=== PATIENT | male | born 1945 | race Caucasian/White ===

== ENCOUNTER 2020-02-03 21:00 | Emergency (ER) | payer OTHER, MEDICARE, MEDICAID, SELFPAY ==
[2020-02-03 21:01] VITALS: BP 141/68; PULSE 74; RESP 19; TEMP 36.6; O2SAT 92; BMI 28.7
[2020-02-03 21:17] VITALS: BP 106/58; PULSE 72; RESP 16; O2SAT 92
--- NOTE | 2020-02-03 21:23 | CTR_ITS ---
PROCEDURE INFORMATION: Exam: CT Head Without Contrast Exam date and time: 02/03/2020 9:24 PM Age: 74 years old Clinical indication: Injury or trauma; Fall; Blunt trauma (contusions or hematomas); Additional info: Fall/injury TECHNIQUE: Imaging protocol: Computed tomography of the head without contrast. Radiation optimization: All CT scans at this facility use at least one of these dose optimization techniques: automated exposure control; mA and/or kV adjustment per patient size (includes targeted exams where dose is matched to clinical indication); or iterative reconstruction. COMPARISON: No relevant prior studies available. RADIATION DOSE METRICS: Total DLP (mGy-cm): 655.2 FINDINGS: Brain: No evidence of active or acute intracranial pathologic process, hemorrhage, or trauma. 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 No visible cerebral edema. No mass effect. No midline shift. Cerebral and cerebellar atrophy greater than that anticipated for patient's chronological age. Old lacunar infarctions to include old left cerebellar hemisphere lacunar infarction. Cerebral ventricles: Ventriculomegaly greater than that anticipated for the degree of cerebral and cerebellar atrophy present. Thinning of the corpus callosum. Findings raise suspicion for normal pressure hydrocephalus. Bones/joints: Unremarkable. No acute fracture. Paranasal sinuses: Visualized sinuses are unremarkable. No fluid levels. Mastoid air cells: Visualized mastoid air cells are well aerated. Soft tissues: Unremarkable. CT/CT head wo con* [id number] IMPRESSION: 1. No evidence of active or acute intracranial pathologic process, hemorrhage, or trauma. 2. Findings consistent with normal pressure hydrocephalus. 3. 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 4. Antecedent lacunar infarctions. Radiation Dose CTDIVOL = (mGy): DLP = 655.2 (mGy-cm)
[2020-02-03 21:47] VITALS: PULSE 99; RESP 16; O2SAT 93
--- NOTE | 2020-02-03 21:58 | ED_ITS ---
HPI - Fall General: Chief Complaint: Fall Stated Complaint: FALL Time Seen by Provider: 02/03/20 21:11 Source: patient and EMS Mode of arrival: EMS Limitations: no limitations History of Present Illness: HPI Narrative: Mr. Zhong is a very nice 74-year-old male who slipped trying to get up out of his chair at the [facility] causing him to fall and hit his head. Patient does not believe he was knocked unconscious. He states he is may have been dazed shortly thereafter but now he feels fine. He denies neck pain, chest pain, back pain, extremity pain, hip pain, leg pain or abdominal pain. He states he has no other complaints other than the strike to his head. Patient has not vomited and does not feel nauseated. He denies any visual symptoms. Associated symptoms-after fall: Denies abdominal pain, chest pain, confusion, difficulty walking, headache(s), hematuria, lightheadedness, neck pain or vertigo Review of Systems Const: Denies: fever(s), chills, body aches, fatigue, malaise or diaphoresis Eyes: Denies: change in vision, blurry vision, photophobia, eye discomfort, eye discharge, eye redness or yellow eyes ENMT: Denies: throat pain, odynophagia, hoarseness, swelling of lips/tongue, ear or mastoid pain, ear discharge, change in hearing or nasal discharge Card: Denies: chest pain, palpitations, irregular heart rhythm, edema, lightheadedness, syncope, pre-syncope, dyspnea on exertion or orthopnea Resp: Denies: dyspnea, productive cough, non-productive cough, wheezing, hemoptysis or chest congestion GI: Denies: abdominal pain, nausea, vomiting, hematemesis, coffee ground emesis, heartburn, diarrhea, constipation, GI cramping, hematochezia or melena : Denies: flank pain, dysuria, urinary frequency, urinary urgency or hematuria Musc: Denies: neck pain, back pain, extremity pain, extremity swelling, joint pain, joint swelling, joint redness, joint warmth or joint stiffness Skin/Breast: Denies: rash, pruritus, erythema, skin pain or skin tenderness Neuro: Denies: headache(s), numbness in extremities, weakness in extremities, sensory changes, lack of coordination, difficulty walking, dizziness, vertigo, confusion, Slurred speech present or seizure-like activity Tam/Lymph: Denies: easy bruising, easy bleeding, petechiae, purpura or enlarged lymph nodes All/Imm: Denies: urticaria, throat swelling, tongue swelling, facial swelling or acute wheezing PFSH ED PFSH: Medical History DM type 2 (diabetes mellitus, type 2) GERD (gastroesophageal reflux disease) Hyperlipidemia Hypertension Physical Exam Const: COMMON NORMALS: no acute distress, patient oriented x3, no limitations and alert GENERAL APPEARANCE: cooperative HENMT: COMMON NORMALS: external ears normal, EAC's normal and Normal external nose present HEAD & SCALP: normal to inspection and other (2 cm laceration to the left posterior occiput) FACE & SINUS: normal facial exam and face symmetric NOSE: Normal external nose present and Normal nares present EXTERNAL EAR: Yes external ears normal EXTERNAL AUDITORY CANAL: EAC's normal MOUTH: Normal oral and palatal mucosa present, lip normal and tongue normal Eye: COMMON NORMALS: Equal, round and reactive pupils present and conjunctivae normal GENERAL EYE: appearance normal, both eyes and all related structures ALIGNMENT: Yes alignment normal PERIORBITAL: periorbital findings normal EYELID: eyelids normal CONJUNCTIVA: Yes conjunctivae normal SCLERA: sclerae normal PUPIL: Yes Equal, round and reactive pupils present Neck/C-Spine: COMMON NORMALS: full ROM, no lymphadenopathy, supple, no meningeal signs and no JVD GENERAL: Yes normal visual inspection and Yes trachea midline Chest: COMMONS NORMALS: normal inspection of the chest and normal palpation of entire chest wall Resp: COMMON NORMALS: normal respiratory effort, No retractions, No use of accessory muscles and clear to auscultation bilaterally EFFORT & INSPECTION: Yes able to speak in complete sentences and Yes symmetric chest movement AUSCULTATION: clear to auscultation bilaterally, no crackles, no rales, no rhonchi and no wheezes Cardio: COMMON NORMALS: no JVD, regular rate, regular rhythm, S1 normal heart sound present and S2 normal heart sound present RATE: regular rate RHYTHM: regular rhythm HEART SOUNDS: S1 normal heart sound present, S2 normal heart sound present, no click, no gallops, no murmurs and no rubs GI: COMMON NORMALS: Soft to palpation and No hepatosplenomegaly present PALPATION: Yes Soft to palpation, No Tenderness to palpation present (GI), No Guarding due to palpation present (GI), No Rigid due to palpation, Yes No hepatosplenomegaly present, No Hernia present, No Palpable mass present and No Pulsatile mass present : COMMON NORMALS: Yes no CVA tenderness BLADDER/KIDNEY EXAM: Yes no CVA tenderness Back/Pelvis: COMMON NORMALS: no CVA tenderness, thoracic and lumbar spine normal to inspection, no thoracic nor lumbar tenderness and thoraco-lumbar ROM normal Extremity: COMMON NORMALS: normal to inspection, full ROM, capillary refill normal, no joint enlargement, no clubbing, cyanosis or edema and no calf tenderness Neuro: COMMON NORMALS: patient oriented x3, CN's II-XII intact bilaterally, moves all extremities, no focal motor deficits and no sensory deficits noted SENSORIUM/ORIENTATION: Yes alert MENINGEAL SIGNS: Yes no meningeal signs SPEECH: speech normal Psych: COMMON NORMALS: mental status grossly normal, Normal thought process present, cooperative, normal affect, speech normal and activity/motor behavior normal SPEECH: Yes normal speech THOUGHT PROCESS: Normal thought process present Skin: COMMON NORMALS: no rashes or lesions noted, turgor normal, no jaundice, no petechiae and no mottling GENERAL SKIN EXAM: no rashes or lesions noted and turgor normal Procedures Laceration Laceration 1: Site: scalp Side (If applicable): left Size (cm): 2 Description: linear Depth: simple, single layer Pre-repair: wound explored, irrigated extensively and deep structures intact Size (cm): other (3 yarely placed.) Course Vital Signs: Vital signs: Vital Signs Temperature 97.9 F 02/03/20 21:01 Pulse Rate 99 02/03/20 21:47 Respiratory Rate 16 02/03/20 21:47 Blood Pressure 106/58 02/03/20 21:17 Pulse Oximetry 93 02/03/20 21:47 MDM - Fall Imaging Data^: CT Head: Radiologist's impression: [address] [address] [address] Scan Report Signed Patient: LIZ ZHONG Unit #: [id number] : 1945 Age/Sex: 74 / M ADM Date: 02/03/20 Loc: ER Room/Bed: Attending Dr: Ordering Provider/Ordering MD: Lilly Enriquez DO Date of Service: 02/03/20 Procedure(s): CT head wo con* [id number] Accession Number(s): [id number] Report Number: [id number] PROCEDURE INFORMATION: Exam: CT Head Without Contrast Exam date and time: 02/03/2020 9:24 PM Age: 74 years old Clinical indication: Injury or trauma; Fall; Blunt trauma (contusions or hematomas); Additional info: Fall/injury TECHNIQUE: Imaging protocol: Computed tomography of the head without contrast. Radiation optimization: All CT scans at this facility use at least one of these dose optimization techniques: automated exposure control; mA and/or kV adjustment per patient size (includes targeted exams where dose is matched to clinical indication); or iterative reconstruction. COMPARISON: No relevant prior studies available. RADIATION DOSE METRICS: Total DLP (mGy-cm): 655.2 FINDINGS: Brain: No evidence of active or acute intracranial pathologic process, hemorrhage, or trauma. 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 No visible cerebral edema. No mass effect. No midline shift. Cerebral and cerebellar atrophy greater than that anticipated for patient's chronological age. Old lacunar infarctions to include old left cerebellar hemisphere lacunar infarction. Cerebral ventricles: Ventriculomegaly greater than that anticipated for the degree of cerebral and cerebellar atrophy present. Thinning of the corpus callosum. Findings raise suspicion for normal pressure hydrocephalus. Bones/joints: Unremarkable. No acute fracture. Paranasal sinuses: Visualized sinuses are unremarkable. No fluid levels. Mastoid air cells: Visualized mastoid air cells are well aerated. Soft tissues: Unremarkable. CT/CT head wo con* [id number] IMPRESSION: 1. No evidence of active or acute intracranial pathologic process, hemorrhage, or trauma. 2. Findings consistent with normal pressure hydrocephalus. 3. 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 4. Antecedent lacunar infarctions. Radiation Dose CTDIVOL = (mGy): DLP = 655.2 (mGy-cm) Dictated By: Rodney Leach Signed By: Rodney Leach Signed Date/Time: 02/03/202155 DD/ 54 Discharge Plan Discharge Patient Disposition: Home Clinical Impression: Laceration, Normal pressure hydrocephalus Concussion without loss of consciousness Qualifiers: Encounter type: initial encounter Qualified Code(s): S06.0X0A - Concussion without loss of consciousness, initial encounter Condition: Stable Prescriptions: No Action ferrous sulfate 325 mg (65 mg iron) Tablet 325 mg PO TID@,, RF: 0 hydralazine 50 mg Tablet 50 mg PO TID@,, RF: 0 atorvastatin 40 mg Tablet 40 mg PO DAILY@1999 RF: 0 carvedilol 25 mg Tablet 25 mg PO BID@ RF: 0 Tylenol 325 mg Tablet 325 mg PO QID PRN (Reason: Pain) RF: 0 loperamide 2 mg Capsule 2 mg PO TID PRN (Reason: Diarrhea) RF: 0 dexamethasone 6 mg Tablet 6 mg PO DAILY@0800 RF: 0 Vitamin B-12 1,000 mcg Tablet 1,000 mcg PO DAILY@0800 RF: 0 Glucosamine 500 mg Tablet 500 mg PO BID@ RF: 0 meclizine 25 mg Tablet 25 mg PO Q6H PRN (Reason: Dizziness) RF: 0 pantoprazole 40 mg Tablet,Delayed Release (Dr/Ec) 40 mg PO DAILY@0800 RF: 0 Colace 100 mg Capsule 100 mg PO DAILY PRN (Reason: Constipation) RF: 0 [place] 200-200-20 mg/5 mL Suspension See Rx Instructions .ROUTE .COMPLEX RF: 0 fluticasone propionate 50 mcg/actuation Ferron,Suspension 1 spray INTRANASAL BID@, RF: 0 glipizide 5 mg Tablet 5 mg PO BID@, RF: 0 Artificial Tears Ointment 1 applic OPHTHALMIC (EYE) BID PRN (Reason: Dry Eyes) RF: 0 Vitamin D3 125 mcg (5,000 unit) Tablet 125 mcg PO DAILY@0800 RF: 0 Vitamin C (ascorbate calcium) 814 mg/gram Powder 814 mg PO DAILY@0800 RF: 0 Trelegy Ellipta 100-62.5-25 mcg Blister With Device 1 inh INHALATION DAILY@0800 RF: 0 Orajel 3X Mouth Sores 20-0.1-0.15 % Gel See Rx Instructions .ROUTE .COMPLEX RF: 0 Discharge Orders: Discharge ED (Routine); Ordered 02/03/20 Ordered By: Lilly Enriquez Referrals: Carol Smith MD [Physician] - 4-7 days Discharge Diet: Usual diet Discharge Activity: Increase activity as tolerated Patient Instructions: Concussion (ED) Activity Restrictions/Additional Instructions: Please return to the ER immediately for any of the signs or symptoms listed on your discharge instruction sheets, worsening/changing of your symptoms, you are not getting better as quickly as expected, or for ANY other cause or concerns. Keep your wound clean and dry and have your yarely removed in 7 to 10 days. Return to the ER for drainage from your wound, redness surrounding your wound, signs of infection or fever. Follow-up with Dr. Smith as an outpatient for evaluation of normal pressure hydrocephalus. Coding Level of Care Code ED Organic Extractions Technician for Chg Fwd Exam Comprehensive
--- NOTE | 2020-02-03 23:06 | PC.NURSE ---
Spoke with Angelique at the [facility]. Explained the situation with transportation. She stated the ambulance could bill [place].
[2020-02-04 00:17] VITALS: PULSE 98; RESP 16; O2SAT 96
== END 2020-02-04 00:19 | disposition home or self-care (01) ==
PROVIDERS: Emergency Provider Emergency Medicine
DX: S01.01XA Laceration without foreign body of scalp, initial encounter (principal); G91.2 (Idiopathic) normal pressure hydrocephalus; S06.0X0A Concussion without loss of consciousness, initial encounter; E11.9 Type 2 diabetes mellitus without complications; E78.5 Hyperlipidemia, unspecified; I10 Essential (primary) hypertension; W07.XXXA Fall from chair, initial encounter
CPT/HCPCS: 12001; 12011; 12345; 70450; 99281; 99282

== ENCOUNTER 2020-02-29 14:08 | Inpatient (IN) | payer MEDICARE, SELFPAY ==
[2020-02-29] VITALS (38 sets, daily range): BP systolic 77–144; BP diastolic 35–89; PULSE 79–130; RESP 9–27; TEMP 36.8; O2SAT 85–98; BMI 26.9
--- NOTE | 2020-02-29 14:29 | CT_ITS ---
WS: [id number] CT ABDOMEN PELVIS TECHNIQUE: Noncontrast CT of the abdomen and pelvis with coronal and sagittal reformatted images. CLINICAL INFORMATION: abd pain/GI bleed COMPARISON: None. DLP: 741.[address] scans at [facility] use at least one of these dose optimization techniques: automat ed exposure control; mA and/or kV adjustment per patient size (includes targeted exams where dose is matched to clinical indication); or iterative reconstruction. FINDINGS: Noncontrast liver is normal. Normal gallbladder. Noncontrast spleen is normal. Adrenal glands are nor mal. Atrophic left kidney. Cortical atrophy right kidney. Fatty atrophy of the pancreas. Fluid disten ded stomach with air-fluid level. Fat-containing umbilical hernia. Aortic endograft with biiliac exte nsion. Aneurysmal infrarenal abdominal aorta measures 3.7 x 4.1 cm AP by transverse. Normal sigmoid colon. A few diverticuli. No evidence of acute diverticulitis. Left inguinal hernia co ntaining a sigmoid colon loop of bowel. No evidence of strangulation or obstruction. No evidence of s mall or large bowel obstruction. No free fluid in the abdomen or pelvis. Lumbar scoliosis. Multilevel degenerative disc disease lumbar spine severe central canal stenosis L3- L4. Slight anterolisthesis L3 on L4. Moderate chronic emphysematous changes in the lung bases. Patchy infiltrates with patchy consolidatio n in the lung bases. Bulla formation right lower lobe. Noncalcified pulmonary nodule right lobe later ally measuring [address]/CT abdomen pelvis wo con [id number] IMPRESSION: 1. Patchy infiltrates with partial consolidation of the lung bases. Recommend correlation for pneumonia. 2. Left inguinal hernia containing a loop of sigmoid colon but no evidence of stimulation. No evidence of obstruction. 3. No evidence of small or large bowel obstruction. 4. Aortic endograft with biiliac extension. Aneurysmal infrarenal abdominal ao rta measuring 3.7 x 4.1 CM. 5. Atrophic left kidney. 6. Severe L3-4 spinal canal narrowing due to slight anterolisthesis with disc osteophytic ridging and advanced arthropathy.
--- NOTE | 2020-02-29 14:29 | XRR_ITS ---
PROCEDURE INFORMATION: Exam: XR Chest, 1 View Exam date and time: 02/29/2020 2:49 PM Age: 75 years old Clinical indication: Shortness of breath; Additional info: SOB TECHNIQUE: Imaging protocol: XR of the chest Views: 1 view. COMPARISON: No relevant prior studies available. FINDINGS: Tubes, catheters and devices: Permanent pacemaker/AICD device. Lungs: Bilateral lower lung partial consolidation right more than left. Pleural space: Unremarkable. No pleural effusion. No pneumothorax. Heart/Mediastinum: Unremarkable. No cardiomegaly. Bones/joints: No acute findings. XR/XR chest 1V portable [id number] IMPRESSION: Bilateral lower lung pneumonia, right more than left.
--- NOTE | 2020-02-29 14:31 | ECG_ITS ---
[facility] Test Date: 2020-02-29 Pat Name: LIZ ZHONG Department: Room: Gender: Male Box Person: : 1945 Requested By: Jason Winter I Order Number: [id number] Girish MD: Jase Blake M.D. Measurements Intervals [place] Rate: 119 P: 110 AL: 168 QRS: 25 QRSD: 100 T: 61 QT: 367 QTc: 517 Interpretive Statements SINUS TACHYCARDIA ST DEPRESSION, CONSIDER SUBENDOCARDIAL INJURY [0.1+ mV ST DEPRESSION] No previous ECG available for comparison Electronically Signed On 02-29-2020 21:38:20 FLUORESCENT SOLUTION MIXER by Jase Blake M.D. [email or web address]
[2020-02-29 14:36] LABS: ABG PCO2 37.8 mmHg (35-45); ABG PH Result 7.45 (7.35-7.45); Alveolar-Arterial Oxygen Gradi 76.8 mmHg (5-10); Arterial Blood Gas Hematocrit 42.2 % (42-52); Blood Gas Allen Test Pos; Blood Gas Sample Site Radial, left; Blood Gas Sample Type Arterial; Carboxyhemoglobin 0.8 %THgb (0.4-20.1); HGB O2 Sat 95.2 % (95-100); Ionized Calcium Level - ABG 1.1 mmol/L (1.1-1.4); Methemoglobin 0.3 % (0.4-1.5); Oxygen Device NRB; Oxygen Saturation ABG 96.3; PO2 ABG 77.6 mmHg (80.0-100.0); Potassium Level - ABG 3.7 mmol/L (3.5-5.0); Total Hemoglobin 13.8 g/dL (14-18)
[2020-02-29] MEDS: diphenhydrAMINE 50 mg/mL SDV 1mL IVP (14:38)
[2020-02-29] MEDS: EPINEPHrine 1 mg/mL INJ 0.3 MG IM ×2 (14:38→15:03)
[2020-02-29] MEDS: famotidine 20 mg/2 mL INJ 40 MG IVP (14:40)
[2020-02-29 14:59] LABS: Basophils % 0.2 %; Eosinophils # 0.1 10^3/uL (0.0-0.8); Eosinophils % 0.6 %; Hematocrit 41.7 % (42.0-52.0); Hemoglobin 13.2 g/dL (11.7-16.6); Lymphocytes # 1.9 10^3/uL (0.8-4.8); Lymphocytes % 15.8 %; Mean Corpuscular HGB Conc 31.7 g/dL (30.0-36.0); Mean Corpuscular Hemoglobin 30.1 pg (28.0-34.0); Monocytes # 1.1 10^3/uL (0.2-0.9); Monocytes % 9.6 %; Neutrophils # 8.54 10^3/uL (1.8-7.7); Neutrophils % 72.9 %; Nucleated Red Blood Cells % 0 %; Platelet Count 296 10^3/cmm (130-400); Red Blood Count 4.39 10^6/uL (4.1-5.3); Red Cell Distribution Width 13.2 % (12.1-15.1); White Blood Count 11.7 10^3/uL (4.0-10.0)
[2020-02-29] MEDS: ondansetron 2 mg/ML SDV 2 mL 4 MG IVP (15:05)
--- NOTE | 2020-02-29 15:30 | PC.NURSE ---
Spoke with [facility] nurse Angelique regarding possible allergens pt has been exposed to today. Per Angelique, pt has not come into contact with any new medications or foods that he has not had contact with before. [facility] staff updated that pt will be admitted for observation. Dr Winter notified of information gathered from [facility].
[2020-02-29 16:28] LABS: Lactate (Lactic Acid level) 2.5 mmol/L (0.5-2.2)
[2020-02-29 16:30] LABS: Alanine Aminotransferase 17 U/L (0-41); Albumin Level 2.6 g/dL (3.5-5.2); Alkaline Phosphatase 90 IU/L (40-130); Anion Gap 19.1 (5-19); Aspartate Amino Transferase 15 U/L (0-40); Blood Urea Nitrogen 26 mg/dL (8-23); Calcium 8.3 mg/dL (8.5-10.5); Carbon Dioxide 24 mmol/L (22-29); Chloride 103 mmol/L (98-107); Globulin 3.2 g/dL (1.3-4.6); Glucose 277 mg/dL (65-115); Lipase 28 U/L (13-60); Osmolality Calculated 309 mOsm/kg (285-295); Potassium 4.1 mmol/L (3.5-5.1); Sodium 142 mmol/L (136-145); Total Bilirubin 0.7 mg/dL (0.15-1.2); Total Protein 5.8 g/dL (6.6-8.7)
[2020-02-29 16:58] LABS: D Dimer >= 20.00 ug/mIFEU (0-0.59)
--- NOTE | 2020-02-29 17:03 | NMR_ITS ---
PROCEDURE INFORMATION: Exam: NH Lung Perfusion Exam date and time: 02/29/2020 6:30 PM Age: 75 years old Clinical indication: Pain and abnormal findings; Abnormal diagnostic tests; Elevated d-dimer; Cough and shortness of breath; Other: Mid back pain; Prior surgery; Surgery date: 6+ months; Surgery type: Pacemaker; Additional info: Hypoxia, tachycardia, hypotension TECHNIQUE: Imaging protocol: Nuclear pulmonary perfusion imaging was performed. Views: Perfusion acquired with multiple projections. Radiopharmaceutical: 5.3 mCi Tc-99m MAA (Macroaggregated Albumin), IV. COMPARISON: CR XR chest 1V portable [id number] 02/29/2020 2:51 PM FINDINGS: Perfusion: Perfusion defect in the central right lung base, corresponding to an area of consolidation on the chest x-ray. Large perfusion defect in the anterior right upper lobe. Moderate perfusion defect in the lingular segment of the left upper lobe. NH/NH pul perfusion [id number] IMPRESSION: 1. Multiple perfusion defects in both lungs is considered suspicious for pulmonary emboli.
--- NOTE | 2020-02-29 17:08 | ED_ITS ---
HPI - GI Bleed General: Chief complaint: GI Bleed Stated complaint: SOB Time Seen by Provider: 02/29/20 14:20 Source: patient and EMS Mode of arrival: EMS History of Present Illness: HPI Narrative: Patient is an 83-year-old gentleman who is a intermediate resident. About lunchtime today he complained of abdominal pain and had diarrhea. He said his stools were melena in color. On looking through his medications however he is on iron tablets for anemia. He has no prior history of GI bleed as far as I can tell. The patient does not think he has a prior GI bleed. When he he arrived he complained of abdominal pain, nausea and vomiting. He also had some diarrhea and some loose dark stools in the ED. He was normotensive in the ambulance, however shortly after arriving here his blood pressure dropped from normal to hypotensive with systolic as low as 69. He also had a rash on his abdomen that spread rapidly in a few minutes to involve the whole of his abdomen, became confluent when he was initially discrete and sprayed to his chest neck and perioral region. He was also present in both upper and lower extremities. Patient was also hypotensive after he arrived in the emergency department and required oxygen via nonrebreather to maintain his saturations around 90% on 15 L/min. Patient is a poor historian and this is as far as I could get from him. Associated symptoms: Reports abdominal pain, nausea and vomiting; Denies chills, fever(s), headache(s) or rash Review of Systems General: Reports: 10 or more systems reviewed and unremarkable except in HPI and below Const: Denies: fever(s), chills or body aches Eyes: Denies: change in vision or blurry vision ENMT: Denies: throat pain, enlarged tonsils, odynophagia, hoarseness, mouth pain or swelling of lips/tongue Card: Denies: palpitations, irregular heart rhythm, edema or swelling of feet/ankles Resp: Reports: dyspnea; Denies: productive cough or non-productive cough GI: Reports: abdominal pain, nausea, vomiting and diarrhea : Denies: flank pain, dysuria, urinary frequency, urinary urgency or urinary hesitancy Musc: Denies: neck pain, back pain or extremity swelling Skin/Breast: Denies: rash, pruritus or erythema Neuro: Denies: headache(s), numbness in extremities or weakness in extremities Endo: Denies: polyuria, polydipsia or tired all the time PFSH ED PFSH: Medical History (Updated 02/29/20 @ 23:58 by Jason Oconnell MD, [facility] [place]) Anemia of chronic disease CAD (coronary artery disease) CHF (congestive heart failure) CKD (chronic kidney disease) stage 3, GFR 30-59 ml/min COPD (chronic obstructive pulmonary disease) Dementia without behavioral disturbance DM type 2 (diabetes mellitus, type 2) GERD (gastroesophageal reflux disease) History of 2019 novel coronavirus disease (COVID-19) (~01/29/20) Hyperlipidemia Hypertension Osteoarthritis Recurrent falls Vitamin C deficiency Vitamin D deficiency Surgical History (Updated 02/29/20 @ 21:23 by Ana Maria Guardado MD) AICD (automatic cardioverter/defibrillator) present Social History (Updated 02/29/20 @ 21:28 by Ana Maria Guardado MD) Smoking and tobacco status: former smoker Lives independently: No Housing: Other Details: [facility] Physical Exam Const: COMMON NORMALS: average body habitus, patient oriented x3, no limitations, healthy appearing, alert and well nourished GENERAL APPEARANCE: in distress (complains of trouble breathing, feels air is not getting into his lungs) HENMT: COMMON NORMALS: normocephalic, atraumatic and moist oral mucous membranes HEAD & SCALP: normocephalic and atraumatic Neck/C-Spine: COMMON NORMALS: no meningeal signs and no JVD Resp: COMMON NORMALS: normal respiratory effort, No retractions, No use of accessory muscles and percussion normal AUSCULTATION: wheezes and diminished lung sounds PERCUSSION: percussion normal Cardio: COMMON NORMALS: no JVD, regular rhythm, S1 normal heart sound present, S2 normal heart sound present, No gallops present (Cardio), No clicks present (Cardio), No murmurs present (Cardio), No rub (Cardio) and Peripheral pulses 2+ throughout RATE: tachycardic RHYTHM: regular rhythm HEART SOUNDS: S1 normal heart sound present and S2 normal heart sound present PERIPHERAL PULSES: Peripheral pulses 2+ throughout GI: COMMON NORMALS: Normal to inspection, nondistended, normoactive bowel sounds present, Soft to palpation, non-tender, No hepatosplenomegaly present, no masses and no bruits PALPATION: Yes Soft to palpation and Yes No hepatosplenomegaly present Extremity: COMMON NORMALS: normal to inspection, full ROM, capillary refill normal, no calf tenderness and no pedal edema Neuro: COMMON NORMALS: patient oriented x3 SENSORIUM/ORIENTATION: Yes alert MENINGEAL SIGNS: Yes no meningeal signs Skin: COMMON NORMALS: no rashes or lesions noted, no wounds, turgor normal, no jaundice, no petechiae and no mottling GENERAL SKIN EXAM: no rashes or lesions noted and turgor normal Course ED course: This elderly gentleman who is a [place] resident was pretty ill and in a bad way on arrival at the ED. He was hypotensive, tachycardiac, hypoxic, had a widespread eythematous and urticarial rash that spread rapidly in within a few minutes. He was given epinephrine, solumedrol, benadryl, pepcid for a likely anaphylactic reaction although we could not determine what he is reacting to. He improved dramatically with the above treatment and stabilized. 1938: discussed with his daughter Acacia Reyes who was informed on his clinical course and my thinking. She also informed me that he had been on anticoagulation in the past, however he had severe lower GI bleeding. Her words were he nearly bled to , so it was discontinued. Advised that depending on his repeat hemoglobin we may need to start him on anticoagulation if we think the benefits are greater than the risks. She advised us to do what we think is the right thing for her father. Consultations: Consultation #1: Discussed the patient with Dr. Guardado and she kindly accepted the patient to her service. Time: 21:15 Vital Signs: Vital signs: Vital Signs Temperature 98.3 F 02/29/20 14:09 Pulse Rate 96 02/29/20 22:45 Respiratory Rate 15 02/29/20 22:30 Blood Pressure 126/60 02/29/20 22:45 Pulse Oximetry 89 L 02/29/20 22:45 MDM - GI Bleed MDM Narrative: Medical decision making narrative: 75 year old [place] who was brought to the ED for concerns for a GI bleed. During lunch in the [place] he had abdominal pain, diarrhea, nausea. His stools were said to be melena, however he is on iron tablets for anemia. On arrival to the ED he had a rash that was only on some parts of his abdomen but rapidly spread to coalesce and spread to involve the whole trunk and both limbs including hands and feet. He also became hypotensive, was tachycardiac, and hypoxic. This in addition to abdominal pain, nausea and vomiting. I therefore managed him as a case of anaphylaxis with 2 doses of IM epinephrine, IV benadryl, solumedrol, pepcid. He was also given an albuterol nebulizer treatment. He improved dramatically with this regimen. I called the [place] and they have not started any new medications recently. He also has not eaten anything new and had biscuits and gravy when his symptoms started. He however had a COVID vaccine 3 days ago which is unlikely to be the cause of his symptoms i think. He was diagnosed with COVID 19 about one month ago, and since it is known to be a hypercoagulable condition he was screened for a PE as some of his symptoms could be explained by a PE. Ddimer was significantly elevated, however he has anaphylaxis to IV contrast and he has elevated creatinine so a V/Q scan was done. He was not cooperative with the ventilation part of the test but his perfusion studies were concerning for bilateral PE's. A repeat hemoglobin showed a drop of 2 points which is concerning for blood loss as his fecal occult blood was positive. Another consideration is hemodilution from IV fluid hydration. This presents a significant clinical conundrum, but since he has had a major GI bleed in the past and possibly has GI bleed again, i will avoid anticoagulation today. Prognosis is therefore guarded and he at very high risk for clinical deterioration. He is admitted to the hospitalist service for further evaluation and management. Medical Records: Attestation: I reviewed the patient's medical records. Lab Data: Attestation: I reviewed the patient's lab results. Labs: Lab Results 02/29/20 02/29/20 02/29/20 Range/Units 14:25 14:45 14:45 WBC 11.7 H (4.0-10.0) 10^3/ uL RBC 4.39 (4.1-5.3) 10^6/u L Hgb 13.2 (11.7-16.6) g/dL Hct 41.7 L (42.0-52.0) % MCV 95.0 H (80-94) fL MCH 30.1 (28.0-34.0) pg MCHC 31.7 (30.0-36.0) g/dL RDW 13.2 (12.1-15.1) % Plt Count 296 (130-400) 10^3/c mm MPV 10.0 (7.4-10.4) fL Neut % (Auto) 72.9 % Lymph % (Auto) 15.8 % Rush % (Auto) 9.6 % Eos % (Auto) 0.6 % Baso % (Auto) 0.2 % Neut # (Auto) 8.54 H (1.8-7.7) 10^3/u L Lymph # (Auto) 1.9 (0.8-4.8) 10^3/u L Rush # (Auto) 1.1 H (0.2-0.9) 10^3/u L Eos # (Auto) 0.1 (0.0-0.8) 10^3/u L Baso # (Auto) 0.0 (0.0-0.1) 10^3/u L Nucleated RBC % (a uto) 0 % Nucleated RBCs # 0.0 /100WBC D-Dimer (0-0.59) ug/mIFE U Specimen Type Arterial Sample Site Radial, left ABG pH 7.45 (7.35-7.45) ABG pCO2 37.8 (35-45) mmHg ABG pO2 77.6 L (80.0-100.0) mmH g ABG HCO3 26.0 (22-26) mmol/L ABG O2 Saturation 96.3 ABG Base Excess 2.0 (-2.0-2.0) mmol/ L Dexter Test Pos A-a O2 Gradient 76.8 H (5-10) mmHg Hematocrit 42.2 (42-52) % Hgb O2 Saturation 95.2 (95-100) % Carboxyhemoglobin 0.8 (0.4-20.1) %THgb Methemoglobin 0.3 L (0.4-1.5) % Total Hemoglobin 13.8 L (14-18) g/dL Sodium 141.0 (131-143) mmol/L Potassium 3.7 (3.5-5.0) mmol/L Glucose 229.0 H (70-115) mg/dL Ionized Calcium 1.1 (1.1-1.4) mmol/L O2 Delivery Device Nrb FiO2 100.0 % Deer Farmer ID Drn Chloride (98-107) mmol/L Carbon Dioxide (22-29) mmol/L Anion Gap (5-19) BUN (8-23) mg/dL Creatinine (0.7-1.2) mg/dL GFR Calculation Calculated Osmolal ity (285-295) mOsm/k g Lactate (0.5-2.2) mmol/L Calcium (8.5-10.5) mg/dL Total Bilirubin (0.15-1.2) mg/dL AST (0-40) U/L ALT (0-41) U/L Alkaline Phosphata se (40-130) IU/L Troponin T Baselin e (0-15) ng/L Troponin T 120 Min [place] (0-15) ng/L Delta Troponin T (0-10) ABS# Troponin T Hi Sens 6Hr (0-15) ng/L Troponin T Hi Sens 6Hr Delta (0-12) ng/L Total Protein (6.6-8.7) g/dL Albumin (3.5-5.2) g/dL Globulin (1.3-4.6) g/dL Lipase (13-60) U/L Blood Type O Negative Rho(D) Type Negative Antibody Screen Negative 02/29/20 02/29/20 02/29/20 Range/Units 15:41 15:41 15:51 WBC (4.0-10.0) 10^3/ uL RBC (4.1-5.3) 10^6/u L Hgb (11.7-16.6) g/dL Hct (42.0-52.0) % MCV (80-94) fL MCH (28.0-34.0) pg MCHC (30.0-36.0) g/dL RDW (12.1-15.1) % Plt Count (130-400) 10^3/c mm MPV (7.4-10.4) fL Neut % (Auto) % Lymph % (Auto) % Rush % (Auto) % Eos % (Auto) % Baso % (Auto) % Neut # (Auto) (1.8-7.7) 10^3/u L Lymph # (Auto) (0.8-4.8) 10^3/u L Rush # (Auto) (0.2-0.9) 10^3/u L Eos # (Auto) (0.0-0.8) 10^3/u L Baso # (Auto) (0.0-0.1) 10^3/u L Nucleated RBC % (a uto) % Nucleated RBCs # /100WBC D-Dimer >= 20.00 H (0-0.59) ug/mIFE U Specimen Type Sample Site ABG pH (7.35-7.45) ABG pCO2 (35-45) mmHg ABG pO2 (80.0-100.0) mmH g ABG HCO3 (22-26) mmol/L ABG O2 Saturation ABG Base Excess (-2.0-2.0) mmol/ L Dexter Test A-a O2 Gradient (5-10) mmHg Hematocrit (42-52) % Hgb O2 Saturation (95-100) % Carboxyhemoglobin (0.4-20.1) %THgb Methemoglobin (0.4-1.5) % Total Hemoglobin (14-18) g/dL Sodium 142 (131-143) mmol/L Potassium 4.1 (3.5-5.0) mmol/L Glucose 277 H (70-115) mg/dL Ionized Calcium (1.1-1.4) mmol/L O2 Delivery Device FiO2 % Deer Farmer ID Chloride 103 (98-107) mmol/L Carbon Dioxide 24 (22-29) mmol/L Anion Gap 19.1 H (5-19) BUN 26 H (8-23) mg/dL Creatinine 2.7 H (0.7-1.2) mg/dL GFR Calculation Not Reportable Calculated Osmolal ity 309 H (285-295) mOsm/k g Lactate 2.5 H (0.5-2.2) mmol/L Calcium 8.3 L (8.5-10.5) mg/dL Total Bilirubin 0.7 (0.15-1.2) mg/dL AST 15 (0-40) U/L ALT 17 (0-41) U/L Alkaline Phosphata se 90 (40-130) IU/L Troponin T Baselin e (0-15) ng/L Troponin T 120 Min [place] (0-15) ng/L Delta Troponin T (0-10) ABS# Troponin T Hi Sens 6Hr (0-15) ng/L Troponin T Hi Sens 6Hr Delta (0-12) ng/L Total Protein 5.8 L (6.6-8.7) g/dL Albumin 2.6 L (3.5-5.2) g/dL Globulin 3.2 (1.3-4.6) g/dL Lipase 28 (13-60) U/L Blood Type Rho(D) Type Antibody Screen 02/29/20 02/29/20 02/29/20 Range/Units 15:51 18:04 20:59 WBC (4.0-10.0) 10^3/ uL RBC (4.1-5.3) 10^6/u L Hgb (11.7-16.6) g/dL Hct (42.0-52.0) % MCV (80-94) fL MCH (28.0-34.0) pg MCHC (30.0-36.0) g/dL RDW (12.1-15.1) % Plt Count (130-400) 10^3/c mm MPV (7.4-10.4) fL Neut % (Auto) % Lymph % (Auto) % Rush % (Auto) % Eos % (Auto) % Baso % (Auto) % Neut # (Auto) (1.8-7.7) 10^3/u L Lymph # (Auto) (0.8-4.8) 10^3/u L Rush # (Auto) (0.2-0.9) 10^3/u L Eos # (Auto) (0.0-0.8) 10^3/u L Baso # (Auto) (0.0-0.1) 10^3/u L Nucleated RBC % (a uto) % Nucleated RBCs # /100WBC D-Dimer (0-0.59) ug/mIFE U Specimen Type Sample Site ABG pH (7.35-7.45) ABG pCO2 (35-45) mmHg ABG pO2 (80.0-100.0) mmH g ABG HCO3 (22-26) mmol/L ABG O2 Saturation ABG Base Excess (-2.0-2.0) mmol/ L Dexter Test A-a O2 Gradient (5-10) mmHg Hematocrit (42-52) % Hgb O2 Saturation (95-100) % Carboxyhemoglobin (0.4-20.1) %THgb Methemoglobin (0.4-1.5) % Total Hemoglobin (14-18) g/dL Sodium (131-143) mmol/L Potassium (3.5-5.0) mmol/L Glucose (70-115) mg/dL Ionized Calcium (1.1-1.4) mmol/L O2 Delivery Device FiO2 % De[place] Farmer ID Chloride (98-107) mmol/L Carbon Dioxide (22-29) mmol/L Anion Gap (5-19) BUN (8-23) mg/dL Creatinine (0.7-1.2) mg/dL GFR Calculation Calculated Osmolal ity (285-295) mOsm/k g Lactate (0.5-2.2) mmol/L Calcium (8.5-10.5) mg/dL Total Bilirubin (0.15-1.2) mg/dL AST (0-40) U/L ALT (0-41) U/L Alkaline Phosphata se (40-130) IU/L Troponin T Baselin e 39 H (0-15) ng/L Troponin T 120 Min [place] 38.22 H (0-15) ng/L Delta Troponin T -0.78 L (0-10) ABS# Troponin T Hi Sens 6Hr 42.28 H (0-15) ng/L Troponin T Hi Sens 6Hr Delta 3.28 (0-12) ng/L Total Protein (6.6-8.7) g/dL Albumin (3.5-5.2) g/dL Globulin (1.3-4.6) g/dL Lipase (13-60) U/L Blood Type Rho(D) Type Antibody Screen 02/29/20 Range/Units 20:59 WBC (4.0-10.0) 10^3/ uL RBC (4.1-5.3) 10^6/u L Hgb 11.6 L (11.7-16.6) g/dL Hct 36.5 L (42.0-52.0) % MCV (80-94) fL MCH (28.0-34.0) pg MCHC (30.0-36.0) g/dL RDW (12.1-15.1) % Plt Count (130-400) 10^3/c mm MPV (7.4-10.4) fL Neut % (Auto) % Lymph % (Auto) % Rush % (Auto) % Eos % (Auto) % Baso % (Auto) % Neut # (Auto) (1.8-7.7) 10^3/u L Lymph # (Auto) (0.8-4.8) 10^3/u L Rush # (Auto) (0.2-0.9) 10^3/u L Eos # (Auto) (0.0-0.8) 10^3/u L Baso # (Auto) (0.0-0.1) 10^3/u L Nucleated RBC % (a uto) % Nucleated RBCs # /100WBC D-Dimer (0-0.59) ug/mIFE U Specimen Type Sample Site ABG pH (7.35-7.45) ABG pCO2 (35-45) mmHg ABG pO2 (80.0-100.0) mmH g ABG HCO3 (22-26) mmol/L ABG O2 Saturation ABG Base Excess (-2.0-2.0) mmol/ L Dexter Test A-a O2 Gradient (5-10) mmHg Hematocrit (42-52) % Hgb O2 Saturation (95-100) % Carboxyhemoglobin (0.4-20.1) %THgb Methemoglobin (0.4-1.5) % Total Hemoglobin (14-18) g/dL Sodium (131-143) mmol/L Potassium (3.5-5.0) mmol/L Glucose (70-115) mg/dL Ionized Calcium (1.1-1.4) mmol/L O2 Delivery Device FiO2 % De[place] Farmer ID Chloride (98-107) mmol/L Carbon Dioxide (22-29) mmol/L Anion Gap (5-19) BUN (8-23) mg/dL Creatinine (0.7-1.2) mg/dL GFR Calculation Calculated Osmolal ity (285-295) mOsm/k g Lactate (0.5-2.2) mmol/L Calcium (8.5-10.5) mg/dL Total Bilirubin (0.15-1.2) mg/dL AST (0-40) U/L ALT (0-41) U/L Alkaline Phosphata se (40-130) IU/L Troponin T Baselin e (0-15) ng/L Troponin T 120 Min [place] (0-15) ng/L Delta Troponin T (0-10) ABS# Troponin T Hi Sens 6Hr (0-15) ng/L Troponin T Hi Sens 6Hr Delta (0-12) ng/L Total Protein (6.6-8.7) g/dL Albumin (3.5-5.2) g/dL Globulin (1.3-4.6) g/dL Lipase (13-60) U/L Blood Type Rho(D) Type Antibody Screen Imaging Data^: CXR: Attestation: I personally reviewed and interpreted this imaging study as follows: Radiologist's impression: [address] [address] XRay Report Signed Patient: Isa ZHONG #: [id number] : [id number] Age/Sex: 75 / MADM Date: 02/29/20 Loc: ERRoom/Bed: Attending Dr: Ordering Provider/Ordering MD: Jason Oconnell MD, [facility] [place] Date of Service: 02/29/20 Procedure(s): XR chest 1V portable [id number] Accession Number(s): [id number] Report Number: [id number] PROCEDURE INFORMATION: Exam: XR Chest, 1 View Exam date and time: 02/29/2020 2:49 PM Age: 75 years old Clinical indication: Shortness of breath; Additional info: SOB TECHNIQUE: Imaging protocol: XR of the chest Views: 1 view. COMPARISON: No relevant prior studies available. FINDINGS: Tubes, catheters and devices: Permanent pacemaker/AICD device. Lungs: Bilateral lower lung partial consolidation right more than left. Pleural space: Unremarkable. No pleural effusion. No pneumothorax. Heart/Mediastinum: Unremarkable. No cardiomegaly. Bones/joints: No acute findings. XR/XR chest 1V portable [id number] IMPRESSION: Bilateral lower lung pneumonia, right more than left. Dictated By:Arpit Cleveland MD Signed By:Arpit Cleveland MDSigned Date/Time:02/29/20 1530 DD/ 1529 CT Abd/Pel: Radiologist's impression: [address] [place] [address] CT Scan Report Signed Patient: Isa ZHONG #: [id number] : 4Acct#:[id number] Age/Sex: 75 / MADM Date: 02/29/20 Loc: ERRoom/Bed: Attending Dr: Ordering Provider/Ordering MD: Jason Oconnell MD, [facility] [place] Date of Service: 02/29/20 Procedure(s): CT abdomen pelvis wo con [id number] Accession Number(s): [id number] Report Number: [id number] WS: [id number] CT ABDOMEN PELVIS TECHNIQUE: Noncontrast CT of the abdomen and pelvis with coronal and sagittal reformatted images. CLINICAL INFORMATION: abd pain/GI bleed COMPARISON: None. DLP: 741.[address] scans at [facility] use at least one of these dose optimization techniques: automated exposure control; mA and/or kV adjustment per patient size (includes targeted exams where dose is matched to clinical indication); or iterative reconstruction. FINDINGS: Noncontrast liver is normal. Normal gallbladder. Noncontrast spleen is normal. Adrenal glands are normal. Atrophic left kidney. Cortical atrophy right kidney. Fatty atrophy of the pancreas. Fluid distended stomach with air-fluid level. Fat-containing umbilical hernia. Aortic endograft with biiliac extension. Aneurysmal infrarenal abdominal aorta measures 3.7 x 4.1 cm AP by transverse. Normal sigmoid colon. A few diverticuli. No evidence of acute diverticulitis. Left inguinal hernia containing a sigmoid colon loop of bowel. No evidence of strangulation or obstruction. No evidence of small or large bowel obstruction. No free fluid in the abdomen or pelvis. Lumbar scoliosis. Multilevel degenerative disc disease lumbar spine severe central canal stenosis L3-L4. Slight anterolisthesis L3 on L4. Moderate chronic emphysematous changes in the lung bases. Patchy infiltrates with patchy consolidation in the lung bases. Bulla formation right lower lobe. Noncalcified pulmonary nodule right lobe laterally measuring [address]/CT abdomen pelvis wo con [id number] IMPRESSION: 1. Patchy infiltrates with partial consolidation of the lung bases. Recommend correlation for pneumonia. 2. Left inguinal hernia containing a loop of sigmoid colon but no evidence of stimulation. No evidence of obstruction. 3. No evidence of small or large bowel obstruction. 4. Aortic endograft with biiliac extension. Aneurysmal infrarenal abdominal aorta measuring 3.7 x 4.1 CM. 5. Atrophic left kidney. 6. Severe L3-4 spinal canal narrowing due to slight anterolisthesis with disc osteophytic ridging and advanced arthropathy. Dictated By:Derrick Mace MD Signed By:Derrick Mace MDSigned Date/Time:02/29/20 1615 DD/ 1604 Other Imaging: Radiologist's impression: [place] [address] Nuclear Medicine Report Signed with Becky Patient: sIa ZHONG #: [id number] : 4Acct#:[id number] Age/Sex: 75 / MADM Date: 02/29/20 Loc: ERRoom/Bed: Attending Dr: Ordering Provider/Ordering MD: Jason Oconnell MD, [facility] [place] Date of Service: 02/29/20 Procedure(s): NV pul perfusion [id number] Accession Number(s): [id number] Report Number: [id number] ADDENDUM NM/NM pul perfusion [id number] THIS REPORT CONTAINS FINDINGS THAT MAY BE CRITICAL TO PATIENT CARE. The findings were verbally communicated via telephone conference with JASON OCONNELL at 7:37 PM ACTUARIAL DIRECTOR on 02/29/2020. The findings were acknowledged and understood. Addendum Dictated By: Tyler Rodriguez Addendum Signed By: Tyler RodriguezSignsanchez Date/Time:02/29/201937 Addendum Cosigned By: PROCEDURE INFORMATION: Exam: NM Lung Perfusion Exam date and time: 02/29/2020 6:30 PM Age: 75 years old Clinical indication: Pain and abnormal findings; Abnormal diagnostic tests; Elevated d-dimer; Cough and shortness of breath; Other: Mid back pain; Prior surgery; Surgery date: 6+ months; Surgery type: Pacemaker; Additional info: Hypoxia, tachycardia, hypotension TECHNIQUE: Imaging protocol: Nuclear pulmonary perfusion imaging was performed. Views: Perfusion acquired with multiple projections. Radiopharmaceutical: 5.3 mCi Tc-99m MAA (Macroaggregated Albumin), IV. COMPARISON: CR XR chest 1V portable [id number] 02/29/2020 2:51 PM FINDINGS: Perfusion: Perfusion defect in the central right lung base, corresponding to an area of consolidation on the chest x-ray. Large perfusion defect in the anterior right upper lobe. Moderate perfusion defect in the lingular segment of the left upper lobe. NM/NM pul perfusion [id number] IMPRESSION: 1. Multiple perfusion defects in both lungs is considered suspicious for pulmonary emboli. Dictated By:Tyler Rodriguez Signed By:Tyler RodriguezSimihir Date/Time:02/29/201934 DD/ 33 EKG Data^: EKG 1: Attestation: I personally reviewed and interpreted this EKG as follows: EKG interpretation date: 02/29/20 EKG interpretation time: 14:39 Prior EKG tracings: not available for review Interpretation: sinus tachycardia HR 119 bpm STD V4, V5 EKG 2: Attestation: I personally reviewed and interpreted this EKG as follows: EKG interpretation date: 02/29/20 EKG interpretation time: 18:00 Prior EKG tracings: available for review Interpretation: sinus tachycardia HR 122 BPM STD V3-V5 EKG 3: Attestation: I personally reviewed and interpreted this EKG as follows: EKG interpretation date: 02/29/20 EKG interpretation time: 22:50 Prior EKG tracings: available for review Interpretation: sinus rhythm HR 95 bpm STD resolved RBBB Critical Care Time Critical Care Time: Critical Care Time: Yes Total Critical Care Time: 120 Attestation: This case had a high probability of a clinically significant, sudden, or life threatening deterioration of this patient's condition which required my full and direct attention, intervention and personal management. Patient with anaphylaxis that required multiple doses of epinephrine as well as IV fluid resuscitation, IV steroids, antihistamines. Discharge Plan Discharge Patient Disposition: Admitted As Inpatient Admit Provider: Ana Maria Guardado Clinical Impression: Acute lower gastrointestinal bleeding Anaphylaxis Qualifiers: Encounter type: initial encounter Qualified Code(s): T78.2XXA - Anaphylactic shock, unspecified, initial encounter Pulmonary embolism Qualifiers: Pulmonary embolism type: unspecified Chronicity: acute Acute cor pulmonale presence: without acute cor pulmonale Qualified Code(s): I26.99 - Other pulmonary embolism without acute cor pulmonale Bilateral pneumonia Qualifiers: Pneumonia type: due to unspecified organism Lung location: lower lobe of lung Qualified Code(s): J18.9 - Pneumonia, unspecified organism Condition: Stable Coding Level of Care Code ED 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
[2020-02-29] MEDS: cefTRIAXone 2,000 MG in sodium chloride 0.9% (plus) 50 ML 100 MG IV (17:49)
--- NOTE | 2020-02-29 17:59 | PC.NURSE ---
1 liter bag given that was hung by ems
[2020-02-29 18:12] LABS: Troponin(5th) Baseline 39 ng/L (0-15)
--- NOTE | 2020-02-29 18:12 | ECG_ITS ---
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 Measurements Intervals [place] Rate: 122 P: 111 IA: 160 QRS: 32 QRSD: 91 T: 38 QT: 353 QTc: 504 Interpretive Statements SINUS TACHYCARDIA LOW QRS VOLTAGE IN EXTREMITY LEADS [QRS DEFLECTION < 0.5 mV IN LIMB LEADS] MODERATE ST DEPRESSION [0.05+ mV ST DEPRESSION] Compared to ECG 02/29/2020 14:39:50 Low QRS voltage now present ST (T wave) deviation still present Electronically Signed On 02-29-2020 21:50:29 TAR PROCESSING TECHNICIAN by Jase Blake M.D. [id number]
[2020-02-29 18:40] LABS: Troponin 5 2HR 38.22 ng/L (0-15)
[2020-02-29 18:41] LABS: Troponin 5 2HR Delta -0.78 ABS# (0-10)
[2020-02-29 21:08] LABS: Hematocrit 36.5 % (42.0-52.0); Hemoglobin 11.6 g/dL (11.7-16.6)
--- NOTE | 2020-02-29 21:23 | P.HP_ITS ---
Providers/Chief Complaint Admitting Physician: Ana Maria Guardado MD Chief Complaint: SOB History of Present Illness LIZ ZHONG is a 75 year old male [facility] due to low oxygen saturations on 2 L by nasal cannula, emesis and black tarry stools along with abdominal pain. Concern was for possibility of GI bleed. He does have a history of GI bleed previously associated with anticoagulation that was quite severe according to information from family. In route to the hospital patient was normotensive however shortly after arriving to the emergency room he became hypotensive with systolic pressures into the 60s. He was noted to have a rash on his abdomen that spread to involve his entire trunk extending up to his perioral area and both upper and lower extremities. He had received no specific treatment in route beyond oxygen from EMS. No report of him having received any medications just prior to this event. He was suspected to be having an anaphylactic reaction and received 2 doses of IM epinephrine, 125 mg of Solu- Medrol and 50 mg of Benadryl along with 40 mg of IV Pepcid. In addition he received some IV fluids, roughly 500 mls. Vital signs improved and rash dissipated. Mr. Zhong continued to be hypoxic requiring significant supplemental oxygen. D-dimer was checked and was found to be greater than 20. Secondary to renal dysfunction patient was not a candidate for contrast so VQ scan was ordered. Patient was only able to do the perfusion portion of the study but there were multiple perfusion defects indicated in both lungs considered suspicious for pulmonary emboli. Stool was also identified as being Hemoccult positive and hemoglobin dropped from 13 to 11. Has not received any anticoagulation at this point in time. He is being admitted to the hospital for further evaluation and treatment. It should be noted that he had COVID-19 in January and received first dose of COVID-19 vaccine several days prior to admission. History is obtained from combination of the patient himself who is a bit inconsistent and available [facility] records. Review of Systems Const: Denies: fever(s), chills or change in appetite Eyes: Denies: change in vision ENMT: Denies: throat pain, dry mouth or nasal congestion Card: Reports: dyspnea on exertion; Denies: chest pain, palpitations or edema Resp: Reports: dyspnea; Denies: productive cough, non-productive cough, pain on inspiration or hemoptysis GI: Reports: abdominal pain, nausea, vomiting, GI cramping and melena; Denies: hematemesis, diarrhea or constipation : Reports: urinary hesitancy Musc: Denies: extremity pain (No leg pain/calf pain) Skin/Breast: Reports: rash and pruritus Neuro: Denies: headache(s), numbness in extremities, weakness in extremities o r dizziness Psych: Denies: anxiety or depression Tam/Lymph: Denies: easy bruising or easy bleeding Medications/Allergies Home Medications Medication Instructions Recorded Confirmed Last Taken Type acetaminophen [Tylenol] 650 mg PO QID PRN 02/03/20 02/29/20 Unknown History artificial tears with lanolin 1 applic OPHTHALMIC (EYE) BID PRN 02/03/20 02/29/20 Unknown History [Artificial Tears] atorvastatin 40 mg PO DAILY@199902/03/20 02/29/20 02/28/20 History carvedilol 25 mg PO BID@,02/03/20 02/29/20 02/29/20 History cholecalciferol (vitamin D3) 125 mcg PO DAILY@79902/03/20 02/29/20 02/29/20 History [Vitamin D3] cyanocobalamin (vitamin B-12) 1,000 mcg PO DAILY@79902/03/20 02/29/20 02/29/20 History [Vitamin B-12] ferrous sulfate 325 mg PO TID@,,02/03/20 02/29/20 02/29/20 History fluticasone propionate 1 spray INTRANASAL BID@,02/03/20 02/29/20 02/03/20 History ixldmqahiyk-dchqeykjf-vcrzxvam 1 inh INHALATION DAILY@79902/03/20 02/29/20 02/29/20 History [Trelegy Ellipta] glipizide 5 mg PO BID@,02/03/20 02/29/20 02/29/20 History glucosamine sulfate [Glucosamine] 500 mg PO BID@,02/03/20 02/29/20 02/29/20 History hydralazine 50 mg PO TID@,,02/03/20 02/29/20 02/29/20 History loperamide 2 mg PO TID PRN 02/03/20 02/29/20 Unknown History meclizine 25 mg PO Q6H PRN 02/03/20 02/29/20 02/29/20 History pantoprazole 40 mg PO DAILY@0800 02/03/20 02/29/20 02/29/20 History albuterol sulfate 1 inh INHALATION QID PRN 02/29/20 02/29/20 02/29/20 History alum-mag hydroxide-simeth 30 ml PO Q2H PRN 02/29/20 02/29/20 Unknown History [[place]] ascorbic acid (vitamin C) [Vitamin 1,000 mg PO DAILY@08 02/29/20 02/29/2002/06 History C] dvuuaueydh-jkankqb-smif chlor 1 ea MUCOUS MEMBRANE TID PRN 02/29/20 02/29/20 Unknown History [Orajel 3X Mouth Sores] bisacodyl 10 mg MT DAILY PRN 02/29/20 02/29/20 Unknown History docusate sodium 100 mg PO DAILY PRN 02/29/20 02/29/20 Unknown History furosemide [Lasix] 40 mg PO BID@08,20 02/29/20 02/29/20 02/29/20 History magnesium hydroxide [Milk of 30 ml PO DAILY PRN 02/29/20 02/29/20 Unknown History Magnesia] potassium chloride 20 meq PO DAILY@08 02/29/20 02/29/20 02/29/20 History sodium phosphates [Enema] 118 ml MT DAILY PRN 02/29/20 02/29/20 Unknown History Allergies Allergy/AdvReac Type Severity Reaction Status Date / Time Iodinated Contrast Media Allergy ALGY-Anaphy Verified 02/03/20 21:21 laxis lisinopril Allergy ADR-Itching Verified 02/03/20 21:21 losartan Allergy ADR-Diarrhe Verified 02/03/20 21:21 a NSAIDS (Non-Steroidal Allergy ALGY-Hives Verified 02/03/20 21:21 Anti-Inflamma sulfamethoxazole Allergy ADR-Agitate Verified 02/03/20 21:21 [From Bactrim] d trimethoprim [From Bactrim] Allergy ADR-Agitate Verified 02/03/20 21:21 d PFSH Acute PFSH: Medical History Anemia of chronic disease CAD (coronary artery disease) CHF (congestive heart failure) CKD (chronic kidney disease) stage 3, GFR 30-59 ml/min COPD (chronic obstructive pulmonary disease) Dementia without behavioral disturbance DM type 2 (diabetes mellitus, type 2) GERD (gastroesophageal reflux disease) History of 2019 novel coronavirus disease (COVID-19) (~01/29/20) Hyperlipidemia Hypertension Osteoarthritis Recurrent falls Vitamin C deficiency Vitamin D deficiency Surgical History AICD (automatic cardioverter/defibrillator) present Family History (Updated 03/01/20 @ 05:06 by Ana Maria Guardado MD) Denies family history of Clotting disorder Social History Smoking and tobacco status: former smoker Lives independently: No Housing: Other Details: [facility] Vitals/I&O/Wt Last Vital Signs Temp 98.3 F 02/29/20 14:09 Pulse 91 02/29/20 21:15 Resp 19 H 02/29/20 20:30 BP 112/58 02/29/20 21:15 Pulse Ox 94 02/29/20 21:15 Weight last 48 hrs Weight 85.275 kg Physical Exam Const: OTHER: Alert, oriented to person and sort of to place (medical), cooperative, talkative, chronic ill appearance HENMT: OTHER: Normocephalic atraumatic, dry membranes, oropharynx clear Eye: OTHER: [place] sclera, pupils reactive Neck/C-Spine: OTHER: Supple Resp: OTHER: Clear to auscultation anteriorly, decreased at both bases, no rhonchi, to spllinting of chest. Cardio: OTHER: Regular rate, no mumurs noted, 2+ radial and 1+ dorsalis pedis pulses. GI: OTHER: Abdomen soft, some tenderness to palpation left lower quadrant without rebound or guarding, nondistended, positive bowel sounds : OTHER: Deferred Extremity: NARRATIVE EXTREMITY EXAM: Trace edema, no cyanosis Neuro: OTHER: Face symmetric, speech clear, moves all extremities, hand country printer apprentice equal Psych: OTHER: Pleasant, poor short term memory Skin: OTHER: No rash at time of my examination, dry, scattered ecchymosis, status changes to both lower legs. I removed jack wraps bilaterally. Few scabbed sores. No weeping. Left heel tender to palpation, soft. Right heel less tender. Scabbed area about quarter size right parietal area. Data : 02/29/20 20:59 02/29/20 15:41 Micro: Microbiology 02/29/20 14:30 Occult Blood (FIT) - Final Stool - Stool Aspirate A&P Assessment and plan (1) Anaphylaxis: With unclear antigen at this point in time. Could have been something in the ambulance. I think it is also possible that what was seen as anaphylaxis was related potentially to other acute process though he responded to treatment appropriately. Thus far no recurrence. He did receive Covid vaccine 3 days ago. Seems a little removed to be a vaccine reaction though it was considered. Status: Acute Qualifiers: Encounter type: initial encounter Qualified Code(s): T78.2XXA - Anaphylactic shock, unspecified, initial encounter (2) Pulmonary embolism: Suspicion based on findings from perfusion imaging per radiology report. Status: Acute Qualifiers: Acute cor pulmonale presence: without acute cor pulmonale Chronicity: acute Pulmonary embolism type: unspecified Qualified Code(s): I26.99 - Other pulmonary embolism without acute cor pulmonale (3) Bilateral pneumonia: Unclear to me if this is new or persistent findings related to Covid diagnosis in January. With reported emesis, aspiration pneumonia is a possibility but the degree of consolidation goes somewhat against such an acute process from events reported today. Status: Acute Qualifiers: Lung location: lower lobe of lung Pneumonia type: due to unspecified organism Qualified Code(s): J18.9 - Pneumonia, unspecified organism (4) GI bleed: As evidenced by melena, heme positive stools in the emergency room and drop in H&H. Patient is chronically on vitamin C supplementation and I suspect he is probably been on steroids recently for Covid. Status: Acute Qualifiers: GI bleed type/associated pathology: melena Qualified Code(s): K92.1 - Melena (5) History of 2019 novel coronavirus disease (COVID-19): In January 2020 Status: Chronic (6) CKD (chronic kidney disease) stage 3, GFR 30-59 ml/min: Exact baseline creatinine unknown Status: Chronic Qualifiers: Chronic kidney disease stage 3 subtype: stage 3b (GFR 30-44) Qualified Code(s): N18.32 - Chronic kidney disease, stage 3b (7) DM type 2 (diabetes mellitus, type 2): Currently with hyperglycemia especially after steroids administered in the emergency room Status: Chronic Qualifiers: Diabetes mellitus custodial insulin use: without local intermodal truck driver use Diabetes mellitus complication status: with kidney complications Diabetes mellitus complication detail: with chronic kidney disease Chronic kidney disease stage: stage 3 (moderate) Chronic kidney disease stage 3 subtype: stage 3b (GFR 30-44) Qualified Code(s): E11.21 - Type 2 diabetes mellitus with diabetic nephropathy; N18.32 - Chronic kidney disease, stage 3b (8) CHF (congestive heart failure): Type unknown Status: Chronic Qualifiers: Heart failure type: unspecified Heart failure chronicity: chronic Qualified Code(s): I50.9 - Heart failure, unspecified (9) COPD (chronic obstructive pulmonary disease): Not currently acutely exacerbated but at risk for such Status: Chronic Qualifiers: COPD type: unspecified COPD Qualified Code(s): J44.9 - Chronic obstructive pulmonary disease, unspecified (10) Dementia without behavioral disturbance: Status: Chronic Qualifiers: Dementia type: unspecified type Qualified Code(s): F03.90 - Unspecified dementia without behavioral disturbance Additional A&P Information Inpatient admission Continue on IV Pepcid and as needed Benadryl Hold further steroids including oral steroids secondary to GI bleed suspected to be from an upper source Oral PPI twice daily Hold full anticoagulation currently due to evidence of GI bleeding Recheck H&H in the morning if no further drop can consider initiation of full anticoagulation Venous Doppler of the lower extremities to see if there might be any benefit to consideration of vena cava filter Continue pulmonary toilet Levaquin and Zosyn for pneumonia Wean oxygen as able Continue home medications as ordered, I have decreased doses of carvedilol and change hydralazine to as needed presently due to hypotension earlier SCDs To be allowed natural as per records from [facility] Daughter is aware of the difficulty of consideration of treatment for PE in the setting of possibility of GI bleed. She indicated that he had a life- threatening GI bleed previously with anticoagulation. I did not personally speak with her but Dr. Winter did from the emergency room. We will see how patient does and make further determination and plans of care. I reviewed with the patient what the current plans were and the reasoning behind him but it is hard to know how much he understands. He is agreeable with anything that I say presently. Attestations Medical Necessity Statement*: Anticipate stay greater than 2 midnights in this patient with multiple medical issues as noted above, much likely a complications from COVID infection and management. Plans are as indicated. Coding Level of Care Code Acute Cyber Analyst for Chg Fwd Diagnoses Anaphylaxis T78.2XXA Encounter type: initial encounter Pulmonary embolism I26.99 Acute cor pulmonale presence: without acute cor pulmonale Chronicity: acute Pulmonary embolism type: unspecified Bilateral pneumonia J18.9 Lung location: lower lobe of lung Pneumonia type: due to unspecified organism GI bleed K92.1 GI bleed type/associated pathology: melena History of 2019 novel coronavirus disease (COVID-19) Z86.19 CKD (chronic kidney disease) stage 3, GFR 30-59 ml/min N18.32 Chronic kidney disease stage 3 subtype: stage 3b (GFR 30-44) DM type 2 (diabetes mellitus, type 2) E11.21; N18.32 Diabetes mellitus local intermodal truck driver insulin use: without custodial use Diabetes mellitus complication status: with kidney complications Diabetes mellitus complication detail: with chronic kidney disease Chronic kidney disease stage: stage 3 (moderate) Chronic kidney disease stage 3 subtype: stage 3b (GFR 30-44) CHF (congestive heart failure) I50.9 Heart failure type: unspecified Heart failure chronicity: chronic COPD (chronic obstructive pulmonary disease) J44.9 COPD type: unspecified COPD Dementia without behavioral disturbance F03.90 Dementia type: unspecified type
[2020-02-29 22:09] LABS: Troponin 5 6HR 42.28 ng/L (0-15); Troponin 5 6HR Delta 3.28 ng/L (0-12)
--- NOTE | 2020-02-29 22:12 | ECG_ITS ---
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 Measurements Intervals [place] Rate: 95 P: 64 WI: 144 QRS: 12 QRSD: 142 T: -2 QT: 408 QTc: 514 Interpretive Statements SINUS RHYTHM RIGHT BUNDLE BRANCH BLOCK [120+ ms QRS DURATION, UPRIGHT V1, 40+ ms S IN I/aVL/V4/V5/V6] Compared to ECG 02/29/2020 17:59:04 Right bundle-branch block now present Sinus tachycardia no longer present ST (T wave) deviation no longer present Electronically Signed On 03-01-2020 19:23:49 STATEMENT PROCESSOR by Larisa Santamaria M.D. [id number]
--- NOTE | 2020-02-29 22:53 | PC.NURSE ---
EKG done 2250 and shown to ER doctor
[2020-03-01] VITALS (11 sets, daily range): BP systolic 108–138; BP diastolic 52–79; PULSE 70–98; RESP 16–22; TEMP 36.8–37.1; O2SAT 84–97
[2020-03-01 01:41] LABS: Procalcitonin 1.93 ng/mL (0-0.5)
[2020-03-01 02:17] LABS: Glucose Point of Care 285 mg/dL (70-110)
[2020-03-01] MEDS: famotidine 20 mg/2 mL INJ IVP (02:18)
[2020-03-01 05:47] LABS: INR 1.08 (0.8-1.2)
[2020-03-01 05:48] LABS: Partial Thromboplastin Time 24.5 SECONDS (23.9-36.7)
--- NOTE | 2020-03-01 06:00 | USCV_ITS ---
Eric Medina Age: 75 Gender: M : 1945 Exam Date: 03/01/2020 05:33 Ordering Phys: Ana Maria Guardado MD Technologist: Antionette Beard Exam Location: [facility] [place] Indication: PE HISTORY: Pulmonary embolism. PROCEDURES: Venous duplex imaging was performed in bilateral lower extremities. The following venous structures were evaluated: common femoral vein, profunda vein, proximal portion of the greater saphenous vein, superficial femoral vein, and the popliteal vein. In addition, the posterior tibial and peroneal trunk were evaluated. Serial compression, augmentation maneuvers, and spectral Doppler flow evaluation were performed. FINDINGS: Normal 2-D Doppler and augmentation and compressibility throughout the lower extremity venous structures. Additional imaging through the proximal calf veins also reveals no thrombus. Limited evaluation of the greater saphenous vein is patent with no thrombus.. CONCLUSIONS No evidence of right lower extremity DVT. No evidence of left lower extremity DVT. Derrick Mace MD (Electronically Signed) Final Date: 01 March 2020 13:00 S
[2020-03-01] MEDS: levofloxacin-dextrose 5 % 750 MG/150 ML PREMIX 100 MG IV (06:14)
[2020-03-01 06:36] LABS: Glucose Point of Care 277 mg/dL (70-110)
[2020-03-01] MEDS: FUROsemide 40 mg Tablet PO (08:21)
[2020-03-01] MEDS: ferrous sulfate EC 325 mg Tablet PO ×3 (08:21→21:08)
[2020-03-01] MEDS: cyanocobalamin 1,000 mcg Tablet 1000 MCG PO (08:21)
[2020-03-01] MEDS: cholecalciferol (vitamin D3) 5,000 unit Tablet 5000 UNIT PO (08:21)
[2020-03-01] MEDS: pantoprazole DR 40 mg Tablet PO ×2 (08:21→17:29)
[2020-03-01] MEDS: potassium chloride ER 20 mEq Tablet PO (08:21)
[2020-03-01] MEDS: carvedilol 12.5 mg Tablet PO ×2 (08:21→21:08)
--- NOTE | 2020-03-01 08:37 | USCV_ITS ---
Adam Eric Age: 75 Gender: M : 1945 Exam Date: 03/01/2020 10:48 Ordering Phys: Tomi Moore MD Technologist: Rose Lindsey [place] [facility] [place]: SOB BP: 124 / 71 HR: 97 Rhythm: Sinus Technical Quality: Suboptimal MEASUREMENTS (Male / Female) Normal Values 2D ECHO LV Diastolic Diameter PLAX 3.3 cm 4.2 - 5.9 / 3.9 - 5.3 cm LV Systolic Diameter PLAX 2.3 cm LV Chamber Size 3.2 cm IVS Diastolic Thickness 1.4 cm 0.6 - 1.0 / 0.6 - 0.9 cm IVS Systolic Thickness 1.2 cm LVPW Diastolic Thickness 1.9 cm 0.6 - 1.0 / 0.6 - 0.9 cm LVPW Systolic Thickness 2.1 cm RV Chamber Size 3.0 cm LVOT Diameter 2.0 cm LV Ejection Fraction MOD 2C 60.8 % LV Ejection Fraction 2C AL 59.5 % LA Diameter 3.2 cm LA Width 3.1 cm LA Height 4.3 cm RA Width 3.1 cm RA Height 3.7 cm M-MODE LV Diastolic Diameter MM 4.9 cm 4.2 - 5.9 / 3.9 - 5.3 cm LV Systolic Diameter MM 3.6 cm LV Ejection Fraction MM Teich 52.8 % IVS Diastolic Thickness MM 0.9 cm 0.6 - 1.0 / 0.6 - 0.9 cm IVS Systolic Thickness MM 1.7 cm LVPW Diastolic Thickness MM 1.2 cm 0.6 - 1.0 / 0.6 - 0.9 cm LVPW Systolic Thickness MM 2.1 cm Aortic Annulus Diameter 3.2 cm LA Ao Ratio MM 1.1 MV E Point Septal Separation 2.2 cm DOPPLER AV Peak Velocity 140.7 cm/s LVOT Peak Velocity 120.3 cm/s AV Area Cont Eq vti 2.7 cm squared AV Area Cont Eq pk 2.8 cm squared MV Area PHT 5.8 cm squared Mitral E to A Ratio 0.8 MV E' Velocity 41.5 cm/s Mitral E to MV E' Ratio 7.8 Mitral E to LV E' Lateral Ratio 6.7 Mitral E to LV E' Septal Ratio 9.5 TR Peak Velocity 202.0 cm/s TR Peak Gradient 16.3 mmHg Right Atrial Pressure 3.0 mmHg Pulmonary Artery Systolic Pressu 19.3 mmHg PV Peak Velocity 53.0 cm/s RV Acceleration Time 0.2 s RV Ejection Time 0.4 s RV AcT/ET 0.5 FINDINGS Left Ventricle Normal left ventricular cavity size. Moderately decreased left ventricular systolic function. Global left ventricular hypokinesis. Left ventricular ejection fraction is estimated at 45 %. Grade I/IV diastolic dysfunction (abnormal relaxation filling pattern), normal to mildly elevated filling pressures. Right Ventricle The right ventricle is normal in size and function. Right Atrium The right atrium is normal in size. Left Atrium The left atrium is normal in size. Mitral Valve Structurally normal mitral valve without significant stenosis or prolapse. There is no mitral regurgitation. Aortic Valve Moderate aortic valve calcification. Mild aortic valve stenosis, mean gradient 3.3 mmHg, DAX 2.7 cm squared. No aortic valve regurgitation. Tricuspid Valve Structurally normal tricuspid valve without significant stenosis or regurgitation. Pulmonary artery systolic pressure is normal. Pulmonic Valve Structurally normal pulmonic valve without significant stenosis. There is no pulmonic regurgitation. Pericardium Normal pericardium without effusion. Aorta Normal ascending aorta dimension. CONCLUSIONS 1-Normal left ventricular cavity size. Moderately decreased left ventricular systolic function. Global left ventricular hypokinesis. Left ventricular ejection fraction is estimated at 45 %. Grade I/IV diastolic dysfunction (abnormal relaxation filling pattern), normal to mildly elevated filling pressures. 2-Moderate aortic valve calcification. Mild aortic valve stenosis, mean gradient 3.3 mmHg, DAX 2.7 cm squared. No aortic valve regurgitation. 3-There is no pericardial effusion. 4-Pulmonary artery systolic pressure is within normal limits. 5-Right atrial pressure is around 5 mm of mercury. 6-There are no prior echocardiogram studies to compare. Aracelis Sears MD (Electronically Signed) Final Date: 01 March 2020 19:07 S
[2020-03-01] MEDS: fluticasone nasal spray 16gm Btl 1 SPRAY INTRANASAL ×2 (09:17→21:09)
[2020-03-01] MEDS: azithromycin 500 MG in sodium chloride 0.9% 250 ML 250 MG IV (09:20)
[2020-03-01] MEDS: vancomycin 1,250 MG/250 ML PIGGYBACK 250 MG IV (10:14)
[2020-03-01 10:25] LABS: Basophils % 0.1 %; Hematocrit 32.6 % (42.0-52.0); Hemoglobin 9.9 g/dL (11.7-16.6); Lymphocytes # 0.7 10^3/uL (0.8-4.8); Lymphocytes % 6.6 %; Mean Corpuscular HGB Conc 30.4 g/dL (30.0-36.0); Mean Corpuscular Volume 98.8 fL (80-94); Mean Platelet Volume 10.4 fL (7.4-10.4); Monocytes # 0.5 10^3/uL (0.2-0.9); Monocytes % 5.2 %; Neutrophils # 9.07 10^3/uL (1.8-7.7); Neutrophils % 87.5 %; Nucleated Red Blood Cells % 0 %; Platelet Count 175 10^3/cmm (130-400); Red Cell Distribution Width 12.9 % (12.1-15.1); White Blood Count 10.4 10^3/uL (4.0-10.0)
[2020-03-01 10:52] LABS: Glucose Point of Care 155 mg/dL (70-110)
[2020-03-01 10:56] LABS: Anion Gap 12.5 (5-19); Blood Urea Nitrogen 36 mg/dL (8-23); Calcium 8.1 mg/dL (8.5-10.5); Carbon Dioxide 29 mmol/L (22-29); Chloride 103 mmol/L (98-107); Glucose 189 mg/dL (65-115); NT Pro B Type Natriuretic Pept 3050 pg/mL (0-450); Osmolality Calculated 303 mOsm/kg (285-295); Phosphorus 3.1 mg/dL (2.5-4.5); Potassium 4.5 mmol/L (3.5-5.1); Sodium 140 mmol/L (136-145)
[2020-03-01] MEDS: sucralfate 1 gm Tablet PO ×3 (11:50→21:08)
[2020-03-01] MEDS: piperacillin-tazobactam 3.375 GM in sodium chloride 0.9% (plus) 50 ML IV (12:37)
[2020-03-01 12:57] LABS: Hematocrit 32.7 % (42.0-52.0)
--- NOTE | 2020-03-01 13:37 | PM.PN ---
Subjective Subjective: Interval history: This morning patient was examined, he is actually off oxygen, saturating in the high 90s, he does not know why he is here in the hospital, he keeps telling me this morning that he was given chocolate milk, and vomited up, he has a lactose intolerance, currently he is alert to person, not to place, but oriented to time, denies any chest pain, denies any shortness of breath, no fevers, no chills, he follows all commands, denies any abdominal pain, denies any bloody or black stools Vitals/I&O/Wt Last Vital Signs Temp 98.6 F 03/01/20 12:00 Pulse 70 03/01/20 12:03 Resp 16 03/01/20 12:03 BP 113/52 03/01/20 12:00 Pulse Ox 94 03/01/20 12:03 02/29/20 03/01/20 03/01/20 22:59 06:59 14:59 Intake Total 330 / 330 480 / 480 Output Total 250 / 250 Balance 80 / 80 480 / 480 Weight last 48 hrs Weight 85.275 kg Physical Exam Const: COMMON NORMALS: no acute distress GENERAL APPEARANCE: cooperative NUTRITIONAL APPEARANCE: obese ORIENTATION/CONSCIOUSNESS: Yes awake, Yes oriented to person and Yes oriented to time; not oriented to place HENMT: COMMON NORMALS: normocephalic HEAD & SCALP: normocephalic Neck/C-Spine: COMMON NORMALS: no JVD Lymph: LYMPHATIC: no lymphadenopathy noted Chest: COMMONS NORMALS: normal inspection of the chest Resp: COMMON NORMALS: normal respiratory effort, No retractions and clear to auscultation bilaterally EFFORT & INSPECTION: Yes able to speak in complete sentences AUSCULTATION: clear to auscultation bilaterally Cardio: COMMON NORMALS: no JVD, regular rate, regular rhythm, S1 normal heart sound present and S2 normal heart sound present RATE: regular rate RHYTHM: regular rhythm HEART SOUNDS: S1 normal heart sound present and S2 normal heart sound present GI: COMMON NORMALS: Normal to inspection, nondistended, normoactive bowel sounds present, Soft to palpation, non-tender and No hepatosplenomegaly present PALPATION: Yes Soft to palpation and Yes No hepatosplenomegaly present Extremity: COMMON NORMALS: capillary refill normal, no clubbing, cyanosis or edema and no pedal edema Neuro: SENSORIUM/ORIENTATION: Yes oriented to person, No oriented to place and Yes oriented to time Data : 03/01/20 12:35 03/01/20 09:56 Micro: Microbiology 02/29/20 14:30 Occult Blood (FIT) - Final Stool - Stool Aspirate A&P Assessment and plan (1) Acute respiratory failure with hypoxia: -Secondary to bilateral pulmonary emboli seen on ventilation/perfusion scan, likely secondary to hypercoagulability secondary to COVID-19 -v/q:Multiple perfusion defects in both lungs is considered suspicious for pulmonary emboli. -Bilateral lower extremity ultrasounds negative for DVT -Bilateral lower lobe pneumonias, does have a significant right-sided pneumonia, concerning for aspiration event -BNP elevated, echo pending, has some component of heart failure -Currently on 2 L, not in respiratory distress, answering all questions, has no shortness of breath complaints Plan: -Unfortunately anticoagulation is contraindicated given his severe history of GI bleed, current GI bleed, anemia, risk of falls -We will discuss with cardiothoracic surgery, and hematology if there is any indication for IVC filter -Started on broad-spectrum antibiotics vancomycin, Rocephin, azithromycin -BNP 3050 ordered, echocardiogram pending, hold off on Lasix given creatinine of 3.5 -Troponins minimally elevated, type II NSTEMI, supply demand ischemia -Albuterol, Advair, nebulizer -Oxygen therapy, currently on 2 L -Sputum cultures, blood cultures -I had a discussion with patient, and feel that he understood exactly what I was saying, I do not feel that he understood the risks and benefits, given his dementia -I spoke to patient's daughter Christin she lives in [place], phone #[phone], she is his healthcare power of divorce attorney, I had an extensive discussion about patient's predicament, GI bleed, pneumonia, pulmonary emboli. Options I laid out to her was trying anticoagulation and seeing how his hemoglobin responded, if he got developed another GI bleed, pursuing IVC filter, risks and benefits discussed, or holding off on interventions and seeing how his respiratory status and hemoglobin does. In addition I discussed doing a repeat EGD, as she does not know where there the history of bleed originated, but sounds like when he was admitted for COVID-19 he had a bleed requiring multiple transfusions, obviously doing EGD given PEs carry significant morbidity mortality risks. After discussion, patient's daughter would like to hold off on aggressive interventions, wants to hold off on anticoagulation, hold off on IVC filter, hold off on the EGD, and see how he does clinically. Advised the risk and benefits, which is in, all questions answered, agreed to proceed Status: Acute (2) CAD (coronary artery disease): -Troponins baseline 39, 6-hour 42.28 -Non-ST elevation [place], likely type II, supply demand ischemia from pulmonary emboli, pneumonia -Continue statin, cannot take aspirin due to severe GI bleeds, Status: Chronic (3) CHF (congestive heart failure): Type unknown echo ordered hold lasix Status: Chronic Qualifiers: Heart failure type: unspecified Heart failure chronicity: chronic Qualified Code(s): I50.9 - Heart failure, unspecified (4) History of 2019 novel coronavirus disease (COVID-19): In January 2020 with hypercoagulablity with pulmonary Status: Chronic (5) Recurrent falls: Recurrent falls, was at assisted living facility at [facility], but after multiple falls, was sent to skilled nursing for physical therapy Status: Chronic (6) COPD (chronic obstructive pulmonary disease): Not currently acutely exacerbated but at risk for such Status: Chronic Qualifiers: COPD type: unspecified COPD Qualified Code(s): J44.9 - Chronic obstructive pulmonary disease, unspecified (7) Dementia without behavioral disturbance: Alert to person, not to place, not to time, does follow commands, does answer questions appropriate at times Status: Chronic Qualifiers: Dementia type: unspecified type Qualified Code(s): F03.90 - Unspecified dementia without behavioral disturbance (8) CKD (chronic kidney disease) stage 3, GFR 30-59 ml/min: Creatinine 3.6 hold Lasix Status: Chronic Qualifiers: Chronic kidney disease stage 3 subtype: stage 3b (GFR 30-44) Qualified Code(s): N18.32 - Chronic kidney disease, stage 3b (9) Anaphylaxis: With unclear antigen at this point in time. Could have been something in the ambulance. I think it is also possible that what was seen as anaphylaxis was related potentially to other acute process though he responded to treatment appropriately. Thus far no recurrence. He did receive Covid vaccine 3 days ago. Seems a little removed to be a vaccine reaction though it was considered. -Currently no rash, no hypotensive episodes, continue to monitor Status: Acute Qualifiers: Encounter type: initial encounter Qualified Code(s): T78.2XXA - Anaphylactic shock, unspecified, initial encounter (10) Pulmonary embolism: Suspicion based on findings from perfusion imaging per radiology report. Status: Acute Qualifiers: Acute cor pulmonale presence: without acute cor pulmonale Chronicity: acute Pulmonary embolism type: unspecified Qualified Code(s): I26.99 - Other pulmonary embolism without acute cor pulmonale (11) Bilateral pneumonia: Status: Acute Qualifiers: Lung location: lower lobe of lung Pneumonia type: due to unspecified organism Qualified Code(s): J18.9 - Pneumonia, unspecified organism (12) GERD (gastroesophageal reflux disease): Status: Chronic (13) Hypertension: Status: Chronic (14) Hyperlipidemia: Status: Chronic (15) DM type 2 (diabetes mellitus, type 2): Currently with hyperglycemia especially after steroids administered in the emergency room Status: Chronic Qualifiers: Diabetes mellitus skilled nursing insulin use: without 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 Patient is chronically on vitamin C supplementation and I suspect he is probably been on steroids recently for Covid -Did require transfusions during his COVID-19 admission according to daughter was secondary to blood thinners, will await records -For now trend hemoglobins -Transfuse if hemoglobin less than 8 -Protonix, Carafate -Monitor hemodynamics closely -For now elective EGD carry significant risks, significant morbidity mortality, given bilateral pulmonary emboli -Certainly if emergent EGD is required, will discuss with surgery Status: Acute Qualifiers: GI bleed type/associated pathology: melena Qualified Code(s): K92.1 - Melena (17) NSTEMI (non-ST elevated myocardial infarction): Status: Acute Additional A&P Information Inpatient admission Daughter is aware of the difficulty of consideration of treatment for PE in the setting of possibility of GI bleed. She indicated that he had a life-threatening GI bleed previously with anticoagulation. I did not personally speak with her but Dr. Winter did from the emergency room. I spoke to patient's daughter the afternoon on 03/01/2020, she confirmed severe life-threatening GI bleed. We will try to get records we will see how patient does and make further determination and plans of care. I reviewed with the patient what the current plans were and the reasoning behind him but it is hard to know how much he understands. He is agreeable with anything that I say presently. Attestations Medical Necessity Statement*: Patient requires hospitalization for pulmonary emboli, GI bleed, NSTEMI, anaphylactic reaction Coding Level of Care Code Acute [employer] [facility] Fwd Diagnoses Acute respiratory failure with hypoxia J96.01 CAD (coronary artery disease) I25.10 CHF (congestive heart failure) I50.9 Heart failure type: unspecified Heart failure chronicity: chronic History of 2019 novel coronavirus disease (COVID-19) Z86.19 Recurrent falls R29.6 COPD (chronic obstructive pulmonary disease) J44.9 COPD type: unspecified COPD Dementia without behavioral disturbance F03.90 Dementia type: unspecified type CKD (chronic kidney disease) stage 3, GFR 30-59 ml/min N18.32 Chronic kidney disease stage 3 subtype: stage 3b (GFR 30-44) Anaphylaxis T78.2XXA Encounter type: initial encounter Pulmonary embolism I26.99 Acute cor pulmonale presence: without acute cor pulmonale Chronicity: acute Pulmonary embolism type: unspecified Bilateral pneumonia J18.9 Lung location: lower lobe of lung Pneumonia type: due to unspecified organism GERD (gastroesophageal reflux disease) K21.9 Hypertension I10 Hyperlipidemia E78.5 DM type 2 (diabetes mellitus, type 2) E11.21; N18.32 Diabetes mellitus regional intermodal truck driver insulin use: without skilled nursing use Diabetes mellitus complication status: with kidney complications Diabetes mellitus complication detail: with chronic kidney disease Chronic kidney disease stage: stage 3 (moderate) Chronic kidney disease stage 3 subtype: stage 3b (GFR 30-44) GI bleed K92.1 GI bleed type/associated pathology: melena NSTEMI (non-ST elevated myocardial infarction) I21.4
[2020-03-01 16:58] LABS: Glucose Point of Care 98 mg/dL (70-110)
[2020-03-01 17:32] LABS: Hematocrit 33.3 % (42.0-52.0); Hemoglobin 9.7 g/dL (11.7-16.6)
[2020-03-01 20:32] LABS: Hematocrit 29.9 % (42.0-52.0); Hemoglobin 9.5 g/dL (11.7-16.6)
[2020-03-01 20:48] LABS: Glucose Point of Care 176 mg/dL (70-110)
[2020-03-01] MEDS: OLANZapine 10 mg TABLET PO (21:08)
[2020-03-01] MEDS: atorvastatin 40 mg Tablet PO (21:08)
[2020-03-02] VITALS (9 sets, daily range): BP systolic 125–167; BP diastolic 55–89; PULSE 63–78; RESP 16–19; TEMP 36.3–36.7; O2SAT 84–98
[2020-03-02 01:22] LABS: Hematocrit 28.4 % (42.0-52.0); Hemoglobin 8.9 g/dL (11.7-16.6)
[2020-03-02 05:25] LABS: Basophils % 0.2 %; Eosinophils # 0.2 10^3/uL (0.0-0.8); Eosinophils % 2.3 %; Hematocrit 29.9 % (42.0-52.0); Hemoglobin 9.1 g/dL (11.7-16.6); Lymphocytes # 1.3 10^3/uL (0.8-4.8); Lymphocytes % 12.2 %; Mean Corpuscular HGB Conc 30.4 g/dL (30.0-36.0); Mean Corpuscular Hemoglobin 30.4 pg (28.0-34.0); Mean Platelet Volume 10.3 fL (7.4-10.4); Monocytes # 0.9 10^3/uL (0.2-0.9); Monocytes % 8.7 %; Neutrophils # 7.75 10^3/uL (1.8-7.7); Neutrophils % 75.7 %; Nucleated Red Blood Cells % 0 %; Platelet Count 179 10^3/cmm (130-400); Red Blood Count 2.99 10^6/uL (4.1-5.3); White Blood Count 10.2 10^3/uL (4.0-10.0)
[2020-03-02 05:36] LABS: INR 1.18 (0.8-1.2)
[2020-03-02 05:48] LABS: NT Pro B Type Natriuretic Pept 4097 pg/mL (0-450); Procalcitonin 4.33 ng/mL (0-0.5)
[2020-03-02 05:49] LABS: ABG PCO2 45.1 mmHg (35-45); ABG PH Result 7.42 (7.35-7.45); Arterial Blood Gas Hematocrit 27.3 % (42-52); Base Excess ABG 4.5 mmol/L (-2.0-2.0); Blood Gas Allen Test Pos; Blood Gas Sample Site Radial, right; Blood Gas Sample Type Arterial; HCO3 ABG 29.5 mmol/L (22-26); PO2 ABG 50.5 mmHg (80.0-100.0)
[2020-03-02 05:53] LABS: Alanine Aminotransferase 14 U/L (0-41); Albumin Level 2.6 g/dL (3.5-5.2); Alkaline Phosphatase 69 IU/L (40-130); Anion Gap 12.9 (5-19); Aspartate Amino Transferase 15 U/L (0-40); Blood Urea Nitrogen 38 mg/dL (8-23); C Reactive Protein 43.3 mg/L (0.0-4.9); Calcium 8.1 mg/dL (8.5-10.5); Carbon Dioxide 29 mmol/L (22-29); Chloride 101 mmol/L (98-107); Globulin 2.6 g/dL (1.3-4.6); Glucose 99 mg/dL (65-115); Magnesium 1.9 mg/dL (1.7-2.3); Osmolality Calculated 297 mOsm/kg (285-295); Phosphorus 3.7 mg/dL (2.5-4.5); Potassium 3.9 mmol/L (3.5-5.1); Sodium 139 mmol/L (136-145); Total Bilirubin 0.3 mg/dL (0.15-1.2); Total Protein 5.2 g/dL (6.6-8.7)
[2020-03-02 05:56] LABS: Lactate (Lactic Acid level) 0.8 mmol/L (0.5-2.2)
[2020-03-02 05:59] LABS: Creatine Phosphokinase 50 U/L (39-308)
[2020-03-02] MEDS: sucralfate 1 gm Tablet PO (06:23)
[2020-03-02 06:38] LABS: Glucose Point of Care 101 mg/dL (70-110)
--- NOTE | 2020-03-02 07:00 | XR_ITS ---
WS: [id number] Portable AP supine chest, 03/02/2020 Clinical Data: sob Comparison: Portable chest, 02/29/2020 Findings: The patchy opacity in the right lower lobe has diminished considerably. There is only a sma ll residual in the left lower lobe. No nodules, masses or effusions are seen. The heart is normal. Th e pulmonary vascularity is not increased. No pneumothorax is seen. A permanent pacemaker remains in good position. The aortic arch and descending aorta show minimal calcification and tortuosity. XR/XR chest 1V portable [id number] Impression: 1. Partial clearing of bilateral lower lobe atelectasis and/or pneumonia. 2. Atherosclerosis.
[2020-03-02] MEDS: haloperidol inj 5 mg/mL INJ 1 mL 2 MG IM (08:15)
--- NOTE | 2020-03-02 08:32 | PC.NURSE ---
pt agitated and confused. pt throwing items in room, stating nurses in room are going to get hit, attempting to get out of bed, and yelling very loudly. Attempted to reorientate. pt agitation continues. Administer 2 mg of Haldol IM. Pt calmed down a bit but still agitated and refusing morning PO medication and IV antibiotics.
[2020-03-02] MEDS: OLANZapine 10 mg VIAL 5 MG IM (10:28)
--- NOTE | 2020-03-02 10:29 | PC.NURSE ---
pt continues to be agitated and continues to yell refusing care and medications. administered 5 mg of Zyprexa IM.
[2020-03-02] MEDS: LORazepam 2 mg/mL INJ 1 mL IM (11:27)
[2020-03-02] MEDS: azithromycin 500 MG in sodium chloride 0.9% 250 ML 250 MG IV (13:30)
[2020-03-02 13:46] LABS: Glucose Point of Care 82 mg/dL (70-110)
--- NOTE | 2020-03-02 16:30 | P.PN_ITS ---
Subjective Subjective: Interval history: This morning patient was quite agitated, agitated with nursing staff, pulling out his IVs, refusing to take medications, refusing his antibiotics, this morning during my rounds, he was very agitated with me, would refused to be examined, will try to push me away, tells me he wants to be left alone, he does not want any IVs Patient received Haldol, Ativan, is much more calm this afternoon, sleeping, 3 L, Vitals/I&O/Wt Last Vital Signs Temp 97.4 F L 03/02/20 15:10 Pulse 70 03/02/20 15:10 Resp 16 03/02/20 15:10 BP 165/80 03/02/20 15:10 Pulse Ox 98 03/02/20 15:10 03/02/20 03/02/20 03/02/20 06:59 14:59 22:59 Output Total 400 / 600 Balance -400 / 850 Physical Exam Const: EXAM LIMITATIONS: altered mental status GENERAL APPEARANCE: anxious ORIENTATION/CONSCIOUSNESS: Yes awake, Yes oriented to person and Yes confused; not oriented to place and not oriented to time Neck/C-Spine: COMMON NORMALS: no JVD Chest: COMMONS NORMALS: normal inspection of the chest Resp: COMMON NORMALS: normal respiratory effort, No retractions, No use of accessory muscles and clear to auscultation bilaterally AUSCULTATION: clear to auscultation bilaterally Cardio: COMMON NORMALS: no JVD, regular rate, regular rhythm, S1 normal heart sound present, S2 normal heart sound present and No clicks present (Cardio) RATE: regular rate RHYTHM: regular rhythm HEART SOUNDS: S1 normal heart sound present and S2 normal heart sound present GI: COMMON NORMALS: Normal to inspection, nondistended, normoactive bowel sounds present, Soft to palpation, non-tender and No hepatosplenomegaly present PALPATION: Yes Soft to palpation and Yes No hepatosplenomegaly present Extremity: COMMON NORMALS: capillary refill normal, no clubbing, cyanosis or edema and no pedal edema Neuro: SENSORIUM/ORIENTATION: Yes oriented to person, No oriented to place and No oriented to time OTHER: Quite agitated this morning, refused to be examined, much more calm this afternoon, sleeping on 3 L Data : 03/02/20 04:22 03/02/20 04:22 Micro: Microbiology 03/01/20 15:15 Blood Culture - Preliminary Blood NEGATIVE TO DATE 03/01/20 15:00 Blood Culture - Preliminary Blood NEGATIVE TO DATE A&P Assessment and plan (1) Acute respiratory failure with hypoxia: -Secondary to bilateral pulmonary emboli seen on ventilation/perfusion scan, likely secondary to hypercoagulability secondary to COVID-19 -v/q:Multiple perfusion defects in both lungs is considered suspicious for pulmonary emboli. -Bilateral lower extremity ultrasounds negative for DVT -Bilateral lower lobe pneumonias, does have a significant right-sided pneumonia, concerning for aspiration event -BNP elevated, echo pending, has some component of heart failure -Currently on 3 L, not in respiratory distress, answering all questions, has no shortness of breath complaints Plan: -Unfortunately anticoagulation is contraindicated given his severe history of GI bleed, current GI bleed, anemia, risk of falls -We will discuss with cardiothoracic surgery, and hematology if there is any indication for IVC filter -Started on broad-spectrum antibiotics vancomycin, Rocephin, azithromycin -BNP 3050 ordered, echocardiogram shows moderately decreased left ventricular systolic function, global left ventricle hypokinesia, EF 45%, grade 1 out of 4 diastolic dysfunction -Possibly could have cardiorenal syndrome given creatinine 3.4, an EF of 45%, will try 1 dose of Lasix -Troponins minimally elevated, type II NSTEMI, supply demand ischemia, no significant right heart strain from pulmonary emboli -Albuterol, Advair, nebulizer -Oxygen therapy, currently on 2 L -Broad-spectrum antibiotics vancomycin, Zosyn, azithromycin -Sputum cultures, blood cultures -I had a discussion with patient, and feel that he understood exactly what I was saying, I do not feel that he understood the risks and benefits, given his dementia -I spoke to patient's daughter Christin she lives in [place], phone #[phone], she is his healthcare power of energy attorney, I had an extensive discussion about patient's predicament, GI bleed, pneumonia, pulmonary emboli. Options I laid out to her was trying anticoagulation and seeing how his hemoglobin responded, if he got developed another GI bleed, pursuing IVC filter, risks and benefits discussed, or holding off on interventions and seeing how his respiratory status and hemoglobin does. In addition I discussed doing a repeat EGD, as she does no t know where there the history of bleed originated, but sounds like when he was admitted for COVID-19 he had a bleed requiring multiple transfusions, obviously doing EGD given PEs carry significant morbidity mortality risks. After discussion, patient's daughter would like to hold off on aggressive interventions, wants to hold off on anticoagulation, hold off on IVC filter, hold off on the EGD, and see how he does clinically. Advised the risk and benefits, which is in, all questions answered, agreed to proceed Status: Acute (2) CAD (coronary artery disease): -Troponins baseline 39, 6-hour 42.28 -Non-ST elevation PA, likely type II, supply demand ischemia from pulmonary emboli, pneumonia -Continue statin, cannot take aspirin due to severe GI bleeds, Status: Chronic (3) CHF (congestive heart failure): Type unknown echo ordered: 1-Normal left ventricular cavity size. Moderately decreased left ventricular systolic function. Global left ventricular hypokinesis. Left ventricular ejection fraction is estimated at 45 %. Grade I/IV diastolic dysfunction (abnormal relaxation filling pattern), normal to mildly elevated filling pressures. 2-Moderate aortic valve calcification. Mild aortic valve stenosis, mean gradient 3.3 mmHg, DAX 2.7 cm squared. No aortic valve regurgitation. 3-There is no pericardial effusion. 4-Pulmonary artery systolic pressure is within normal limits. 5-Right atrial pressure is around 5 mm of mercury. 6-There are no prior echocardiogram studies to compare. hold lasix Status: Chronic Qualifiers: Heart failure type: unspecified Heart failure chronicity: chronic Qualified Code(s): I50.9 - Heart failure, unspecified (4) History of 2019 novel coronavirus disease (COVID-19): In January 2020 with hypercoagulablity with pulmonary Status: Chronic (5) Recurrent falls: Recurrent falls, was at assisted living facility at [facility], but after multiple falls, was [facility] Status: Chronic (6) COPD (chronic obstructive pulmonary disease): Not currently acutely exacerbated but at risk for such Status: Chronic Qualifiers: COPD type: unspecified COPD Qualified Code(s): J44.9 - Chronic obstructive pulmonary disease, unspecified (7) Dementia without behavioral disturbance: Worsening dementia this morning, with delirium Continue Ativan as needed Zyprexa 10 mg every 12 hours Status: Chronic Qualifiers: Dementia type: unspecified type Qualified Code(s): F03.90 - Unspecified dementia without behavioral disturbance (8) CKD (chronic kidney disease) stage 3, GFR 30-59 ml/min: Creatinine 3.4, hold Lasix Status: Chronic Qualifiers: Chronic kidney disease stage 3 subtype: stage 3b (GFR 30-44) Qualified Code(s): N18.32 - Chronic kidney disease, stage 3b (9) Anaphylaxis: With unclear antigen at this point in time. Could have been something in the ambulance. I think it is also possible that what was seen as anaphylaxis was related potentially to other acute process though he responded to treatment appropriately. Thus far no recurrence. He did receive Covid vaccine 3 days ago. Seems a little removed to be a vaccine reaction though it was considered. -Currently no rash, no hypotensive episodes, continue to monitor Status: Acute Qualifiers: Encounter type: initial encounter Qualified Code(s): T78.2XXA - Anaphylactic shock, unspecified, initial encounter (10) Pulmonary embolism: Suspicion based on findings from perfusion imaging per radiology report. Status: Acute Qualifiers: Acute cor pulmonale presence: without acute cor pulmonale Chronicity: acute Pulmonary embolism type: unspecified Qualified Code(s): I26.99 - Other pulmonary embolism without acute cor pulmonale (11) Bilateral pneumonia: Status: Acute Qualifiers: Lung location: lower lobe of lung Pneumonia type: due to unspecified organism Qualified Code(s): J18.9 - Pneumonia, unspecified organism (12) GERD (gastroesophageal reflux disease): Status: Chronic (13) Hypertension: Status: Chronic (14) Hyperlipidemia: Status: Chronic (15) DM type 2 (diabetes mellitus, type 2): Currently with hyperglycemia especially after steroids administered in the emergency room Status: Chronic Qualifiers: Diabetes mellitus prison insulin use: without termite control service representative use Diabetes mellitus complication status: with kidney complications Diabetes mellitus complication detail: with chronic kidney disease Chronic kidney disease stage: stage 3 (moderate) Chronic kidney disease stage 3 subtype: stage 3b (GFR 30-44) Qualified Code(s): E11.21 - Type 2 diabetes mellitus with diabetic nephropathy; N18.32 - Chronic kidney disease, stage 3b (16) GI bleed: -As evidenced by melena, heme positive stools in the emergency room and drop in H&H. Patient is chronically on vitamin C supplementation and I suspect he is probably been on steroids recently for Covid -Did require transfusions during his COVID-19 admission according to daughter was secondary to blood thinners, will await records -For now trend hemoglobins -Transfuse if hemoglobin less than 8 -Protonix, Carafate -Monitor hemodynamics closely -For now elective EGD carry significant risks, significant morbidity mortality, given bilateral pulmonary emboli -Certainly if emergent EGD is required, will discuss with surgery Status: Acute Qualifiers: GI bleed type/associated pathology: melena Qualified Code(s): K92.1 - Melena (17) NSTEMI (non-ST elevated myocardial infarction): Status: Acute Additional A&P Information Inpatient admission Daughter is aware of the difficulty of consideration of treatment for PE in the setting of possibility of GI bleed. She indicated that he had a life- threatening GI bleed previously with anticoagulation. I did not personally speak with her but Dr. Winter did from the emergency room. I spoke to patient's daughter the afternoon on 03/01/2020, she confirmed severe life- threatening GI bleed. We will try to get records we will see how patient does and make further determination and plans of care. I reviewed with the patient what the current plans were and the reasoning behind him but it is hard to know how much he understands. He is agreeable with anything that I say presently. Attestations Medical Necessity Statement*: Patient requires hospitalization, for GI bleed, pulmonary emboli, acute respiratory failure, worsening delirium Coding Level of Care Code Acute Bilingual Receptionist for [facility] Fwd Diagnoses Acute respiratory failure with hypoxia J96.01 CAD (coronary artery disease) I25.10 CHF (congestive heart failure) I50.9 Heart failure type: unspecified Heart failure chronicity: chronic History of 2019 novel coronavirus disease (COVID-19) Z86.19 Recurrent falls R29.6 COPD (chronic obstructive pulmonary disease) J44.9 COPD type: unspecified COPD Dementia without behavioral disturbance F03.90 Dementia type: unspecified type CKD (chronic kidney disease) stage 3, GFR 30-59 ml/min N18.32 Chronic kidney disease stage 3 subtype: stage 3b (GFR 30-44) Anaphylaxis T78.2XXA Encounter type: initial encounter Pulmonary embolism I26.99 Acute cor pulmonale presence: without acute cor pulmonale Chronicity: acute Pulmonary embolism type: unspecified Bilateral pneumonia J18.9 Lung location: lower lobe of lung Pneumonia type: due to unspecified organism GERD (gastroesophageal reflux disease) K21.9 Hypertension I10 Hyperlipidemia E78.5 DM type 2 (diabetes mellitus, type 2) E11.21; N18.32 Diabetes mellitus termite control service representative insulin use: without prison use Diabetes mellitus complication status: with kidney complications Diabetes mellitus complication detail: with chronic kidney disease Chronic kidney disease stage: stage 3 (moderate) Chronic kidney disease stage 3 subtype: stage 3b (GFR 30-44) GI bleed K92.1 GI bleed type/associated pathology: melena NSTEMI (non-ST elevated myocardial infarction) I21.4
[2020-03-02 16:58] LABS: Glucose Point of Care 89 mg/dL (70-110)
--- NOTE | 2020-03-02 19:18 | PC.NURSE ---
wasted 2.1 zyprexa with Luciana ARANA. kelsie kapadia wast of zyprexa.
[2020-03-02 21:12] LABS: Glucose Point of Care 92 mg/dL (70-110)
[2020-03-03] VITALS (8 sets, daily range): BP systolic 164–177; BP diastolic 82–96; PULSE 70–105; RESP 18–20; TEMP 36.7–37; O2SAT 89–93
[2020-03-03] MEDS: cefTRIAXone 1,000 MG in sodium chloride 0.9% (plus) 50 ML 100 MG IV (01:20)
[2020-03-03] MEDS: vancomycin 1,250 MG/250 ML PIGGYBACK 250 MG IV (03:07)
[2020-03-03 05:10] LABS: ABG PCO2 46.7 mmHg (35-45); ABG PH Result 7.42 (7.35-7.45); Arterial Blood Gas Hematocrit 31.6 % (42-52); Base Excess ABG 5.2 mmol/L (-2.0-2.0); Blood Gas Allen Test Pos; Blood Gas Sample Site Radial, right; Blood Gas Sample Type Arterial; HCO3 ABG 30.4 mmol/L (22-26); Oxygen Device ROOM AIR
[2020-03-03 05:27] LABS: Basophils % 0.4 %; Eosinophils # 0.4 10^3/uL (0.0-0.8); Eosinophils % 5.9 %; Hemoglobin 10.3 g/dL (11.7-16.6); Lymphocytes # 1.1 10^3/uL (0.8-4.8); Lymphocytes % 14.2 %; Mean Corpuscular HGB Conc 30.3 g/dL (30.0-36.0); Mean Corpuscular Hemoglobin 30.1 pg (28.0-34.0); Mean Corpuscular Volume 99.4 fL (80-94); Mean Platelet Volume 9.9 fL (7.4-10.4); Monocytes % 12.9 %; Neutrophils # 4.86 10^3/uL (1.8-7.7); Neutrophils % 64.7 %; Nucleated Red Blood Cells % 0 %; Platelet Count 191 10^3/cmm (130-400); Red Blood Count 3.42 10^6/uL (4.1-5.3); White Blood Count 7.5 10^3/uL (4.0-10.0)
[2020-03-03 05:39] LABS: INR 1.11 (0.8-1.2)
[2020-03-03 05:47] LABS: Alanine Aminotransferase 14 U/L (0-41); Albumin Level 2.6 g/dL (3.5-5.2); Alkaline Phosphatase 70 IU/L (40-130); Aspartate Amino Transferase 17 U/L (0-40); Blood Urea Nitrogen 35 mg/dL (8-23); C Reactive Protein 29.3 mg/L (0.0-4.9); Calcium 8.3 mg/dL (8.5-10.5); Carbon Dioxide 30 mmol/L (22-29); Chloride 106 mmol/L (98-107); Globulin 2.8 g/dL (1.3-4.6); Glucose 92 mg/dL (65-115); Osmolality Calculated 306 mOsm/kg (285-295); Phosphorus 4.3 mg/dL (2.5-4.5); Sodium 144 mmol/L (136-145); Total Bilirubin 0.3 mg/dL (0.15-1.2); Total Protein 5.4 g/dL (6.6-8.7)
[2020-03-03 05:52] LABS: Anion Gap 12.6 (5-19); Potassium 4.6 mmol/L (3.5-5.1)
[2020-03-03 05:57] LABS: Lactate (Lactic Acid level) 0.8 mmol/L (0.5-2.2)
[2020-03-03 06:00] LABS: NT Pro B Type Natriuretic Pept 4967 pg/mL (0-450); Procalcitonin 2.36 ng/mL (0-0.5)
[2020-03-03 06:07] LABS: Glucose Point of Care 88 mg/dL (70-110)
[2020-03-03 06:11] LABS: Creatine Phosphokinase 70 U/L (39-308)
--- NOTE | 2020-03-03 08:10 | PC.NURSE ---
Patient states, I don't want my pills now get out of here and leave me alone. Sitter at bedside.
--- NOTE | 2020-03-03 10:00 | PC.NURSE ---
Patient is yelling from his bed, Will you get the hell out of here I need to get up and get dressed. Tried to reorient patient that he is at the hospital not at the [facility]. Patient continues to yell, You are a liar and I do not live at a [facility] I live at my own house and I want the coffee I just went to the store and bought. Patient is not only yelling but shaking his fist at this underwriter. Again tried to explain to patient that he was at the hospital. Patient started kicking at the DOUGH MIXER HELPER that is standing at the foot of his bed. This underwriter asked patient to stop kicking at her and patient states, I will do more if I can get a hold of her. !0:18 Zyprexa given in right upper arm at this time will the assistance of 3 other staff.
--- NOTE | 2020-03-03 10:08 | PC.SOCIAL ---
IMM Update Pg. 2 of IMM updated and reviewed with patient's daughter over the phone who verbalized understanding. Copy left at bedside, patient resting with eyes closed.
[2020-03-03] MEDS: OLANZapine 10 mg VIAL IM (10:18)
[2020-03-03] MEDS: LORazepam 2 mg/mL INJ 1 mL 1 MG IM ×2 (11:22→22:09)
--- NOTE | 2020-03-03 11:35 | PC.NURSE ---
Attempted to check patient's blood sugar at this time. Patient refused swinging is arms and kicking his legs stating, Get the hell out of her and leave me alone.
[2020-03-03 11:45] LABS: Glucose Point of Care 103 mg/dL (70-110)
--- NOTE | 2020-03-03 12:00 | PC.NURSE ---
Patient continues to try and get out of bed yelling at staff and calling for Christin. Patient is refusing to eat stating, I do not trust any of you people. Patient continues to try and kick at this keno writer/runner stating get the hell out of here. Patient states, I am going to tell Christin on you. Patient continues to throw his legs of the edge of the and try to get up. Dr. Moore notified verbal orders received.
[2020-03-03] MEDS: haloperidol inj 5 mg/mL INJ 1 mL 2 MG IM (12:32)
[2020-03-03] MEDS: LORazepam 2 mg/mL INJ 1 mL IM (12:33)
--- NOTE | 2020-03-03 13:00 | PC.NURSE ---
Patient pulled out both of his IVs. Patient is uncooperative at this time and is not allowing nursing to place another one. Dr. Moore aware.
--- NOTE | 2020-03-03 14:10 | PM.PN ---
Subjective Subjective: Interval history: This morning patient was examined, according to nursing staff he had a difficult night, was quite agitated, refused to take medications at times, quite agitated with the me this morning, tells me that he wants to be left alone, has received multiple sedating medications, but remains quite agitated Vitals/I&O/Wt Last Vital Signs Temp 98.0 F 03/03/20 07:01 Pulse 91 03/03/20 07:19 Resp 18 03/03/20 14:00 BP 168/83 03/03/20 14:00 Pulse Ox 90 03/03/20 14:00 03/02/20 03/03/20 03/03/20 22:59 06:59 14:59 Output Total 0 / 0 400 / 400 Balance 0 / 0 -400 / -400 Physical Exam Const: COMMON NORMALS: no acute distress EXAM LIMITATIONS: altered mental status ORIENTATION/CONSCIOUSNESS: Yes awake, Yes oriented to person and Yes confused; not oriented to place and not oriented to time Neck/C-Spine: COMMON NORMALS: no JVD Resp: COMMON NORMALS: normal respiratory effort, No retractions, No use of accessory muscles and clear to auscultation bilaterally AUSCULTATION: clear to auscultation bilaterally Cardio: COMMON NORMALS: no JVD, regular rate, regular rhythm, S1 normal heart sound present and S2 normal heart sound present RATE: regular rate RHYTHM: regular rhythm HEART SOUNDS: S1 normal heart sound present and S2 normal heart sound present GI: COMMON NORMALS: Normal to inspection, nondistended, normoactive bowel sounds present, Soft to palpation and non-tender PALPATION: Yes Soft to palpation Neuro: SENSORIUM/ORIENTATION: Yes oriented to person, No oriented to place and No oriented to time Data : 03/03/20 05:15 03/03/20 05:15 Micro: Microbiology 03/01/20 15:15 Blood Culture - Preliminary Blood NEGATIVE TO DATE 03/01/20 15:00 Blood Culture - Preliminary Blood NEGATIVE TO DATE A&P Assessment and plan (1) Acute delirium: -Is on broad-spectrum antibiotic therapy -Afebrile -On room air -Blood cultures have been negative -Likely related to underlying dementia -Has failed Zyprexa, Haldol, Ativan -We will try Geodon -Obtain a CT of the head when patient is calm Status: Acute (2) Acute respiratory failure with hypoxia: -Secondary to bilateral pulmonary emboli seen on ventilation/perfusion scan, likely secondary to hypercoagulability secondary to COVID-19 -v/q:Multiple perfusion defects in both lungs is considered suspicious for pulmonary emboli. -Bilateral lower extremity ultrasounds negative for DVT -Bilateral lower lobe pneumonias, does have a significant right-sided pneumonia, concerning for aspiration event -BNP elevated, echo pending, has some component of heart failure -Currently on 3 L, not in respiratory distress, answering all questions, has no shortness of breath complaints Plan: -Unfortunately anticoagulation is contraindicated given his severe history of GI bleed, current GI bleed, anemia, risk of falls -We will discuss with cardiothoracic surgery, and hematology if there is any indication for IVC filter -Started on broad-spectrum antibiotics vancomycin, Rocephin, azithromycin -BNP 3050 ordered, echocardiogram shows moderately decreased left ventricular systolic function, global left ventricle hypokinesia, EF 45%, grade 1 out of 4 diastolic dysfunction -Possibly could have cardiorenal syndrome given creatinine 3.4, an EF of 45%, will try 1 dose of Lasix -Troponins minimally elevated, type II NSTEMI, supply demand ischemia, no significant right heart strain from pulmonary emboli -Albuterol, Advair, nebulizer -Oxygen therapy, currently on 2 L -Broad-spectrum antibiotics vancomycin, Zosyn, azithromycin -Sputum cultures, blood cultures so far negative -I had a discussion with patient, and feel that he understood exactly what I was saying, I do not feel that he understood the risks and benefits, given his dementia -I spoke to patient's daughter Christin she lives in [place], phone #[phone], she is his healthcare power of real estate attorney, I had an extensive discussion about patient's predicament, GI bleed, pneumonia, pulmonary emboli. Options I laid out to her was trying anticoagulation and seeing how his hemoglobin responded, if he got developed another GI bleed, pursuing IVC filter, risks and benefits discussed, or holding off on interventions and seeing how his respiratory status and hemoglobin does. In addition I discussed doing a repeat EGD, as she does not know where there the history of bleed originated, but sounds like when he was admitted for COVID-19 he had a bleed requiring multiple transfusions, obviously doing EGD given PEs carry significant morbidity mortality risks. After discussion, patient's daughter would like to hold off on aggressive interventions, wants to hold off on anticoagulation, hold off on IVC filter, hold off on the EGD, and see how he does clinically. Advised the risk and benefits, which is in, all questions answered, agreed to proceed Status: Acute (3) CAD (coronary artery disease): -Troponins baseline 39, 6-hour 42.28 -Non-ST elevation AK, likely type II, supply demand ischemia from pulmonary emboli, pneumonia -Continue statin, cannot take aspirin due to severe GI bleeds, Status: Chronic (4) CHF (congestive heart failure): Systolic and diastolic echo ordered: 1-Normal left ventricular cavity size. Moderately decreased left ventricular systolic function. Global left ventricular hypokinesis. Left ventricular ejection fraction is estimated at 45 %. Grade I/IV diastolic dysfunction (abnormal relaxation filling pattern), normal to mildly elevated filling pressures. 2-Moderate aortic valve calcification. Mild aortic valve stenosis, mean gradient 3.3 mmHg, DAX 2.7 cm squared. No aortic valve regurgitation. 3-There is no pericardial effusion. 4-Pulmonary artery systolic pressure is within normal limits. 5-Right atrial pressure is around 5 mm of mercury. 6-There are no prior echocardiogram studies to compare. hold lasix Status: Chronic Qualifiers: Heart failure type: unspecified Heart failure chronicity: chronic Qualified Code(s): I50.9 - Heart failure, unspecified (5) History of 2019 novel coronavirus disease (COVID-19): In January 2020 with hypercoagulablity with pulmonary Status: Chronic (6) Recurrent falls: Recurrent falls, was at assisted living facility at [facility], but after multiple falls, was sent to long term for physical therapy Status: Chronic (7) COPD (chronic obstructive pulmonary disease): Not currently acutely exacerbated but at risk for such Status: Chronic Qualifiers: COPD type: unspecified COPD Qualified Code(s): J44.9 - Chronic obstructive pulmonary disease, unspecified (8) Dementia without behavioral disturbance: We will try Jurgen Status: Chronic Qualifiers: Dementia type: unspecified type Qualified Code(s): F03.90 - Unspecified dementia without behavioral disturbance (9) CKD (chronic kidney disease) stage 3, GFR 30-59 ml/min: Creatinine 3.4, hold Lasix Status: Chronic Qualifiers: Chronic kidney disease stage 3 subtype: stage 3b (GFR 30-44) Qualified Code(s): N18.32 - Chronic kidney disease, stage 3b (10) Anaphylaxis: With unclear antigen at this point in time. Could have been something in the ambulance. I think it is also possible that what was seen as anaphylaxis was related potentially to other acute process though he responded to treatment appropriately. Thus far no recurrence. He did receive Covid vaccine 3 days ago. Seems a little removed to be a vaccine reaction though it was considered. -Currently no rash, no hypotensive episodes, continue to monitor Status: Acute Qualifiers: Encounter type: initial encounter Qualified Code(s): T78.2XXA - Anaphylactic shock, unspecified, initial encounter (11) Pulmonary embolism: Suspicion based on findings from perfusion imaging per radiology report. Status: Acute Qualifiers: Acute cor pulmonale presence: without acute cor pulmonale Chronicity: acute Pulmonary embolism type: unspecified Qualified Code(s): I26.99 - Other pulmonary embolism without acute cor pulmonale (12) Bilateral pneumonia: Status: Acute Qualifiers: Lung location: lower lobe of lung Pneumonia type: due to unspecified organism Qualified Code(s): J18.9 - Pneumonia, unspecified organism (13) GERD (gastroesophageal reflux disease): Status: Chronic (14) Hypertension: Status: Chronic (15) Hyperlipidemia: Status: Chronic (16) DM type 2 (diabetes mellitus, type 2): Currently with hyperglycemia especially after steroids administered in the emergency room Status: Chronic Qualifiers: Diabetes mellitus advanced manufacturing vice president insulin use: without advanced manufacturing vice president use Diabetes mellitus complication status: with kidney complications Diabetes mellitus complication detail: with chronic kidney disease Chronic kidney disease stage: stage 3 (moderate) Chronic kidney disease stage 3 subtype: stage 3b (GFR 30-44) Qualified Code(s): E11.21 - Type 2 diabetes mellitus with diabetic nephropathy; N18.32 - Chronic kidney disease, stage 3b (17) GI bleed: -As evidenced by melena, heme positive stools in the emergency room and drop in H&H. Patient is chronically on vitamin C supplementation and I suspect he is probably been on steroids recently for Covid -Did require transfusions during his COVID-19 admission according to daughter was secondary to blood thinners, will await records -For now trend hemoglobins -Transfuse if hemoglobin less than 8 -Protonix, Carafate -Monitor hemodynamics closely -For now elective EGD carry significant risks, significant morbidity mortality, given bilateral pulmonary emboli -Certainly if emergent EGD is required, will discuss with surgery Status: Acute Qualifiers: GI bleed type/associated pathology: melena Qualified Code(s): K92.1 - Melena (18) NSTEMI (non-ST elevated myocardial infarction): Status: Acute Additional A&P Information Inpatient admission Daughter is aware of the difficulty of consideration of treatment for PE in the setting of possibility of GI bleed. She indicated that he had a life-threatening GI bleed previously with anticoagulation. I did not personally speak with her but Dr. Winter did from the emergency room. I spoke to patient's daughter the afternoon on 03/01/2020, she confirmed severe life-threatening GI bleed. We will try to get records we will see how patient does and make further determination and plans of care. I reviewed with the patient what the current plans were and the reasoning behind him but it is hard to know how much he understands. He is agreeable with anything that I say presently. 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 [facility] Fwd Diagnoses Acute delirium R41.0 Acute respiratory failure with hypoxia J96.01 CAD (coronary artery disease) I25.10 CHF (congestive heart failure) I50.9 Heart failure type: unspecified Heart failure chronicity: chronic History of 2019 novel coronavirus disease (COVID-19) Z86.19 Recurrent falls R29.6 COPD (chronic obstructive pulmonary disease) J44.9 COPD type: unspecified COPD Dementia without behavioral disturbance F03.90 Dementia type: unspecified type CKD (chronic kidney disease) stage 3, GFR 30-59 ml/min N18.32 Chronic kidney disease stage 3 subtype: stage 3b (GFR 30-44) Anaphylaxis T78.2XXA Encounter type: initial encounter Pulmonary embolism I26.99 Acute cor pulmonale presence: without acute cor pulmonale Chronicity: acute Pulmonary embolism type: unspecified Bilateral pneumonia J18.9 Lung location: lower lobe of lung Pneumonia type: due to unspecified organism GERD (gastroesophageal reflux disease) K21.9 Hypertension I10 Hyperlipidemia E78.5 DM type 2 (diabetes mellitus, type 2) E11.21; N18.32 Diabetes mellitus advanced manufacturing vice president insulin use: without half-way use Diabetes mellitus complication status: with kidney complications Diabetes mellitus complication detail: with chronic kidney disease Chronic kidney disease stage: stage 3 (moderate) Chronic kidney disease stage 3 subtype: stage 3b (GFR 30-44) GI bleed K92.1 GI bleed type/associated pathology: melena NSTEMI (non-ST elevated myocardial infarction) I21.4
--- NOTE | 2020-03-03 14:17 | CTR_ITS ---
PROCEDURE INFORMATION: Exam: CT Head Without Contrast Exam date and time: 03/03/2020 4:36 PM Age: 75 years old Clinical indication: Altered mental status/memory loss; Patient HX: PT combative best images possible; Additional info: AMS TECHNIQUE: Imaging protocol: Computed tomography of the head without contrast. Radiation optimization: All CT scans at this facility use at least one of these dose optimization techniques: automated exposure control; mA and/or kV adjustment per patient size (includes targeted exams where dose is matched to clinical indication); or iterative reconstruction. COMPARISON: CT head wo con* [id number] 02/03/2020 9:27 PM RADIATION DOSE METRICS: Total DLP (mGy-cm): FINDINGS: Brain: There is volume loss and periventricular low density compatible with chronic small vessel disease changes. There is no acute hemorrhage, edema or mass effect. There are small bifrontal benign hygromas. 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 Cerebral ventricles: There is unchanged ventricular prominence. This appearance is again noted to be compatible with possible normal pressure hydrocephalus since the ventricular dilatation is more prominent than the degree of volume loss. Bones/joints: Unremarkable. No acute fracture. Paranasal sinuses: Visualized sinuses are unremarkable. No fluid levels. Mastoid air cells: Visualized mastoid air cells are well aerated. Soft tissues: Unremarkable. CT/CT head wo con* [id number] IMPRESSION: 1. No acute intracranial abnormality. 2. Unchanged findings of probable normal pressure hydrocephalus. Radiation Dose CTDIVOL = (mGy): DLP = 2021. (mGy-cm)
[2020-03-03] MEDS: ziprasidone 20 mg/mL SDV IM (16:24)
[2020-03-03 17:03] LABS: Glucose Point of Care 92 mg/dL (70-110)
--- NOTE | 2020-03-03 18:58 | PC.NURSE ---
Report to Shayy GUZMAN at this time.
[2020-03-03 21:45] LABS: Glucose Point of Care 98 mg/dL (70-110)
[2020-03-04] VITALS: BP 123/65; PULSE 92; RESP 20; TEMP 36.9; O2SAT 90
[2020-03-04 04:00] VITALS: BP 179/79; PULSE 92; RESP 18; TEMP 37.1; O2SAT 94
[2020-03-04 05:37] LABS: Basophils % 0.5 %; Eosinophils # 0.4 10^3/uL (0.0-0.8); Eosinophils % 5.4 %; Hematocrit 34.7 % (42.0-52.0); Hemoglobin 10.9 g/dL (11.7-16.6); Lymphocytes # 0.9 10^3/uL (0.8-4.8); Lymphocytes % 12.4 %; Mean Corpuscular HGB Conc 31.4 g/dL (30.0-36.0); Mean Corpuscular Hemoglobin 30.5 pg (28.0-34.0); Mean Corpuscular Volume 97.2 fL (80-94); Mean Platelet Volume 9.7 fL (7.4-10.4); Monocytes # 0.8 10^3/uL (0.2-0.9); Monocytes % 10.8 %; Neutrophils % 68.2 %; Nucleated Red Blood Cells % 0 %; Platelet Count 192 10^3/cmm (130-400); Red Blood Count 3.57 10^6/uL (4.1-5.3); Red Cell Distribution Width 12.7 % (12.1-15.1); White Blood Count 7.3 10^3/uL (4.0-10.0)
[2020-03-04 05:57] LABS: INR 1.08 (0.8-1.2)
[2020-03-04 06:02] LABS: Lactate (Lactic Acid level) 0.8 mmol/L (0.5-2.2)
[2020-03-04 06:19] LABS: NT Pro B Type Natriuretic Pept 6655 pg/mL (0-450); Procalcitonin 1.11 ng/mL (0-0.5)
[2020-03-04 06:34] LABS: Alanine Aminotransferase 13 U/L (0-41); Albumin Level 2.9 g/dL (3.5-5.2); Alkaline Phosphatase 76 IU/L (40-130); Anion Gap 17.2 (5-19); Aspartate Amino Transferase 16 U/L (0-40); Blood Urea Nitrogen 31 mg/dL (8-23); C Reactive Protein 48.8 mg/L (0.0-4.9); Calcium 8.6 mg/dL (8.5-10.5); Carbon Dioxide 25 mmol/L (22-29); Chloride 106 mmol/L (98-107); Creatine Phosphokinase 110 U/L (39-308); Globulin 2.7 g/dL (1.3-4.6); Glucose 108 mg/dL (65-115); Magnesium 2.1 mg/dL (1.7-2.3); Osmolality Calculated 305 mOsm/kg (285-295); Phosphorus 4.6 mg/dL (2.5-4.5); Potassium 4.2 mmol/L (3.5-5.1); Sodium 144 mmol/L (136-145); Total Bilirubin 0.4 mg/dL (0.15-1.2); Total Protein 5.6 g/dL (6.6-8.7)
[2020-03-04 07:29] LABS: Glucose Point of Care 89 mg/dL (70-110)
[2020-03-04 08:00] VITALS: BP 172/85; PULSE 91; RESP 16; TEMP 37.2; O2SAT 96
--- NOTE | 2020-03-04 10:53 | PC.NURSE ---
PT REFUSED ALL AM MEDS, DR. DUARTE NOTIFIED.
[2020-03-04 11:00] LABS: Glucose Point of Care 97 mg/dL (70-110)
[2020-03-04] MEDS: ziprasidone 20 mg/mL SDV 10 MG IM ×3 (11:42→23:00)
[2020-03-04 11:59] VITALS: BP 179/78; PULSE 91; RESP 16; TEMP 36.8; O2SAT 94
--- NOTE | 2020-03-04 12:04 | PC.NURSE ---
PT REFUSES TO KEEP TELEMETRY ON, DR. DUARTE NOTIFIED
--- NOTE | 2020-03-04 12:05 | PM.PN ---
Subjective Subjective: Interval history: Overnight, patient had episodes of agitation, but was well controlled with Geodon, sleeping this morning, less agitated, he has ripped out his IVs, has not received antibiotics for the last 24 hours, as he is more calm, will replace IVs, start IV antibiotics, he does awaken, does allow me to listen to his chest calmly,, no episodes of agitation Vitals/I&O/Wt Last Vital Signs Temp 98.3 F 03/04/20 11:59 Pulse 91 03/04/20 11:59 Resp 16 03/04/20 11:59 BP 179/78 03/04/20 11:59 Pulse Ox 94 03/04/20 11:59 03/03/20 03/04/20 03/04/20 22:59 06:59 14:59 Intake Total 200 / 200 Output Total 0 / 400 0 / 400 Balance 200 / -200 0 / -200 Physical Exam Const: COMMON NORMALS: no acute distress GENERAL APPEARANCE: cooperative Neck/C-Spine: COMMON NORMALS: no JVD Resp: COMMON NORMALS: normal respiratory effort and clear to auscultation bilaterally AUSCULTATION: clear to auscultation bilaterally, crackles, rales, rhonchi and wheezes Cardio: COMMON NORMALS: no JVD, regular rate, regular rhythm, S1 normal heart sound present and S2 normal heart sound present RATE: regular rate RHYTHM: regular rhythm HEART SOUNDS: S1 normal heart sound present and S2 normal heart sound present GI: COMMON NORMALS: Normal to inspection, nondistended, normoactive bowel sounds present, Soft to palpation and non-tender PALPATION: Yes Soft to palpation Data : 03/04/20 05:15 03/04/20 05:15 A&P Assessment and plan (1) Acute delirium: -We will replace IV this morning, resume n broad-spectrum antibiotic therapy for another 24 hours -Afebrile -On room air -Blood cultures have been negative -Likely related to underlying dementia -Has failed Zyprexa, Haldol, Ativan -Increase Geodon to 10 twice daily -CT of the head no acute stroke, but does show 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 -Bilateral lower extremity ultrasounds negative for DVT -Bilateral lower lobe pneumonias, does have a significant right-sided pneumonia, concerning for aspiration event -BNP elevated, echo pending, has some component of heart failure -Currently on room air, not in respiratory distress, answering all questions, has no shortness of breath complaints Plan: -Unfortunately anticoagulation is contraindicated given his severe history of GI bleed, current GI bleed, anemia, risk of falls -We will discuss with cardiothoracic surgery, and hematology if there is any indication for IVC filter -Started on broad-spectrum antibiotics vancomycin, Rocephin, azithromycin -BNP over 6000 ordered, echocardiogram shows moderately decreased left ventricular systolic function, global left ventricle hypokinesia, EF 45%, grade 1 out of 4 diastolic dysfunction -Possibly could have cardiorenal syndrome given creatinine 2.4, an EF of 45%, 40 mg Lasix daily -Troponins minimally elevated, type II NSTEMI, supply demand ischemia, no significant right heart strain from pulmonary emboli -Albuterol, Advair, nebulizer -Oxygen therapy, currently on room air -Broad-spectrum antibiotics Rocephin azithromycin -Sputum cultures, blood cultures so far negative -I had a discussion with patient, and feel that he understood exactly what I was saying, I do not feel that he understood the risks and benefits, given his dementia -I spoke to patient's daughter Christin she lives in [place], phone #[phone], she is his healthcare power of director of state, I had an extensive discussion about patient's predicament, GI bleed, pneumonia, pulmonary emboli. Options I laid out to her was trying anticoagulation and seeing how his hemoglobin responded, if he got developed another GI bleed, pursuing IVC filter, risks and benefits discussed, or holding off on interventions and seeing how his respiratory status and hemoglobin does. In addition I discussed doing a repeat EGD, as she does not know where there the history of bleed originated, but sounds like when he was admitted for COVID-19 he had a bleed requiring multiple transfusions, obviously doing EGD given PEs carry significant morbidity mortality risks. After discussion, patient's daughter would like to hold off on aggressive interventions, wants to hold off on anticoagulation, hold off on IVC filter, hold off on the EGD, and see how he does clinically. Advised the risk and benefits, which is in, all questions answered, agreed to proceed Status: Acute (3) CAD (coronary artery disease): -Troponins baseline 39, 6-hour 42.28 -Non-ST elevation NE, likely type II, supply demand ischemia from pulmonary emboli, pneumonia -Continue statin, cannot take aspirin due to severe GI bleeds, Status: Chronic (4) CHF (congestive heart failure): Systolic and diastolic echo ordered: 1-Normal left ventricular cavity size. Moderately decreased left ventricular systolic function. Global left ventricular hypokinesis. Left ventricular ejection fraction is estimated at 45 %. Grade I/IV diastolic dysfunction (abnormal relaxation filling pattern), normal to mildly elevated filling pressures. 2-Moderate aortic valve calcification. Mild aortic valve stenosis, mean gradient 3.3 mmHg, DAX 2.7 cm squared. No aortic valve regurgitation. 3-There is no pericardial effusion. 4-Pulmonary artery systolic pressure is within normal limits. 5-Right atrial pressure is around 5 mm of mercury. 6-There are no prior echocardiogram studies to compare. hold lasix Status: Chronic Qualifiers: Heart failure type: unspecified Heart failure chronicity: chronic Qualified Code(s): I50.9 - Heart failure, unspecified (5) History of 2019 novel coronavirus disease (COVID-19): In January 2020 with hypercoagulablity with pulmonary Status: Chronic (6) Recurrent falls: Recurrent falls, was at assisted living facility at [facility], but after multiple falls, was sent to senior care for physical therapy Status: Chronic (7) COPD (chronic obstructive pulmonary disease): Not currently acutely exacerbated but at risk for such Status: Chronic Qualifiers: COPD type: unspecified COPD Qualified Code(s): J44.9 - Chronic obstructive pulmonary disease, unspecified (8) Dementia without behavioral disturbance: We will try Atwilly and Griselda Status: Chronic Qualifiers: Dementia type: unspecified type Qualified Code(s): F03.90 - Unspecified dementia without behavioral disturbance (9) CKD (chronic kidney disease) stage 3, GFR 30-59 ml/min: Creatinine 3.4, hold Lasix Status: Chronic Qualifiers: Chronic kidney disease stage 3 subtype: stage 3b (GFR 30-44) Qualified Code(s): N18.32 - Chronic kidney disease, stage 3b (10) Anaphylaxis: With unclear antigen at this point in time. Could have been something in the ambulance. I think it is also possible that what was seen as anaphylaxis was related potentially to other acute process though he responded to treatment appropriately. Thus far no recurrence. He did receive Covid vaccine 3 days ago. Seems a little removed to be a vaccine reaction though it was considered. -Currently no rash, no hypotensive episodes, continue to monitor Status: Acute Qualifiers: Encounter type: initial encounter Qualified Code(s): T78.2XXA - Anaphylactic shock, unspecified, initial encounter (11) Pulmonary embolism: Suspicion based on findings from perfusion imaging per radiology report. Status: Acute Qualifiers: Acute cor pulmonale presence: without acute cor pulmonale Chronicity: acute Pulmonary embolism type: unspecified Qualified Code(s): I26.99 - Other pulmonary embolism without acute cor pulmonale (12) Bilateral pneumonia: Status: Acute Qualifiers: Lung location: lower lobe of lung Pneumonia type: due to unspecified organism Qualified Code(s): J18.9 - Pneumonia, unspecified organism (13) GERD (gastroesophageal reflux disease): Status: Chronic (14) Hypertension: Status: Chronic (15) Hyperlipidemia: Status: Chronic (16) DM type 2 (diabetes mellitus, type 2): Currently with hyperglycemia especially after steroids administered in the emergency room Status: Chronic Qualifiers: Diabetes mellitus salvage determiner insulin use: without salvage determiner use Diabetes mellitus complication status: with kidney complications Diabetes mellitus complication detail: with chronic kidney disease Chronic kidney disease stage: stage 3 (moderate) Chronic kidney disease stage 3 subtype: stage 3b (GFR 30-44) Qualified Code(s): E11.21 - Type 2 diabetes mellitus with diabetic nephropathy; N18.32 - Chronic kidney disease, stage 3b (17) GI bleed: -As evidenced by melena, heme positive stools in the emergency room and drop in H&H. Patient is chronically on vitamin C supplementation and I suspect he is probably been on steroids recently for Covid -Did require transfusions during his COVID-19 admission according to daughter was secondary to blood thinners, will await records -For now trend hemoglobins -Transfuse if hemoglobin less than 8 -Protonix, Carafate -Monitor hemodynamics closely -For now elective EGD carry significant risks, significant morbidity mortality, given bilateral pulmonary emboli -Certainly if emergent EGD is required, will discuss with surgery Status: Acute Qualifiers: GI bleed type/associated pathology: melena Qualified Code(s): K92.1 - Melena (18) NSTEMI (non-ST elevated myocardial infarction): Status: Acute Additional A&P Information Inpatient admission Daughter is aware of the difficulty of consideration of treatment for PE in the setting of possibility of GI bleed. She indicated that he had a life-threatening GI bleed previously with anticoagulation. I did not personally speak with her but Dr. Winter did from the emergency room. I spoke to patient's daughter the afternoon on 03/01/2020, she confirmed severe life-threatening GI bleed. We will try to get records we will see how patient does and make further determination and plans of care. I reviewed with the patient what the current plans were and the reasoning behind him but it is hard to know how much he understands. He is agreeable with anything that I say presently. Attestations Medical Necessity Statement*: Patient requires hospitalization for acute respiratory failure secondary to pneumonia, pulmonary emboli, now with worsening of delirium, CHF Coding Level of Care Code Acute Intensive Care Ambulance Paramedic for [facility] Fwd Diagnoses Acute delirium R41.0 Acute respiratory failure with hypoxia J96.01 CAD (coronary artery disease) I25.10 CHF (congestive heart failure) I50.9 Heart failure type: unspecified Heart failure chronicity: chronic History of 2019 novel coronavirus disease (COVID-19) Z86.19 Recurrent falls R29.6 COPD (chronic obstructive pulmonary disease) J44.9 COPD type: unspecified COPD Dementia without behavioral disturbance F03.90 Dementia type: unspecified type CKD (chronic kidney disease) stage 3, GFR 30-59 ml/min N18.32 Chronic kidney disease stage 3 subtype: stage 3b (GFR 30-44) Anaphylaxis T78.2XXA Encounter type: initial encounter Pulmonary embolism I26.99 Acute cor pulmonale presence: without acute cor pulmonale Chronicity: acute Pulmonary embolism type: unspecified Bilateral pneumonia J18.9 Lung location: lower lobe of lung Pneumonia type: due to unspecified organism GERD (gastroesophageal reflux disease) K21.9 Hypertension I10 Hyperlipidemia E78.5 DM type 2 (diabetes mellitus, type 2) E11.21; N18.32 Diabetes mellitus custodial insulin use: without salvage determiner use Diabetes mellitus complication status: with kidney complications Diabetes mellitus complication detail: with chronic kidney disease Chronic kidney disease stage: stage 3 (moderate) Chronic kidney disease stage 3 subtype: stage 3b (GFR 30-44) GI bleed K92.1 GI bleed type/associated pathology: melena NSTEMI (non-ST elevated myocardial infarction) I21.4
[2020-03-04] MEDS: LORazepam 2 mg/mL INJ 1 mL 1 MG IM (14:38)
[2020-03-04] MEDS: azithromycin 500 MG in sodium chloride 0.9% 250 ML 250 MG IV (15:08)
[2020-03-04] MEDS: FUROsemide 10 mg/mL SDV 4mL 40 MG IVP (15:13)
[2020-03-04] MEDS: ferrous sulfate EC 325 mg Tablet PO (15:39)
[2020-03-04 16:00] VITALS: BP 148/78; PULSE 91; RESP 14; TEMP 37.1; O2SAT 94
[2020-03-04] MEDS: vancomycin 1,250 MG/250 ML PIGGYBACK 250 MG IV (16:16)
[2020-03-04 17:16] LABS: Glucose Point of Care 100 mg/dL (70-110)
[2020-03-04] MEDS: pantoprazole DR 40 mg Tablet PO (18:01)
[2020-03-04] MEDS: sucralfate 1 gm Tablet PO (18:01)
[2020-03-04 19:31] VITALS: BP 166/90; PULSE 101; RESP 14; TEMP 36.8; O2SAT 93
[2020-03-04 21:13] LABS: Glucose Point of Care 107 mg/dL (70-110)
[2020-03-04] MEDS: cefTRIAXone 1,000 MG in sodium chloride 0.9% (plus) 50 ML 100 MG IV (21:25)
[2020-03-05] VITALS (10 sets, daily range): BP systolic 112–164; BP diastolic 61–82; PULSE 78–148; RESP 14–20; TEMP 36.5–37.3; O2SAT 88–96
[2020-03-05 06:46] LABS: Glucose Point of Care 131 mg/dL (70-110)
[2020-03-05] MEDS: metoprolol tartrate 1 mg/1 mL SDV 5 mL 5 MG IV (08:46)
[2020-03-05] MEDS: sucralfate 1 gm Tablet PO ×4 (08:48→20:56)
[2020-03-05] MEDS: cyanocobalamin 1,000 mcg Tablet 1000 MCG PO (08:48)
[2020-03-05] MEDS: cholecalciferol (vitamin D3) 5,000 unit Tablet 5000 UNIT PO (08:48)
[2020-03-05] MEDS: ferrous sulfate EC 325 mg Tablet PO ×3 (08:48→20:55)
[2020-03-05] MEDS: carvedilol 12.5 mg Tablet PO ×2 (08:48→20:56)
[2020-03-05] MEDS: pantoprazole DR 40 mg Tablet PO ×2 (08:49→18:37)
[2020-03-05] MEDS: potassium chloride ER 20 mEq Tablet PO (08:49)
--- NOTE | 2020-03-05 09:13 | ECG_ITS ---
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 Measurements Intervals [place] Rate: 146 P: 46 DE: 158 QRS: -29 QRSD: 144 T: 16 QT: 321 QTc: 501 Interpretive Statements Possible atrial flutter with rapid ventricular rate BORDERLINE LEFT AXIS DEVIATION [QRS AXIS < -20] INTRAVENTRICULAR CONDUCTION DELAY [130+ ms QRS DURATION] Compared to ECG 02/29/2020 22:48:56 Intraventricular conduction delay now present Sinus rhythm no longer present Right bundle-branch block no longer present Electronically Signed On 03-05-2020 20:19:43 [employer]GICAL APPLIANCE [employer]TER by Jase Blake M.D. [email or web address]
--- NOTE | 2020-03-05 10:05 | PC.SOCIAL ---
IM discussed with daughter Christin by phone. She verbalized understanding and has no questions.
[2020-03-05 10:41] LABS: Glucose Point of Care 159 mg/dL (70-110)
--- NOTE | 2020-03-05 11:06 | PM.PN ---
Subjective Subjective: Interval history: This morning patient is much more calm, he tells me he is doing okay, he has no complaints, no chest pain, no shortness of breath, he does have audible wheezing, alert to person, not to place, not to time Vitals/I&O/Wt Last Vital Signs Temp 98.9 F 03/05/20 08:00 Pulse 148 H 03/05/20 08:09 Resp 18 03/05/20 08:09 BP 112/82 03/05/20 08:00 Pulse Ox 92 03/05/20 08:09 03/04/20 03/05/20 03/05/20 22:59 06:59 14:59 Intake Total 40 / 40 Output Total 600 / 600 Balance -600 / -600 40 / 40 Physical Exam Const: COMMON NORMALS: no acute distress ORIENTATION/CONSCIOUSNESS: Yes awake and Yes oriented to person; not oriented to place and not oriented to time HENMT: COMMON NORMALS: normocephalic HEAD & SCALP: normocephalic Neck/C-Spine: COMMON NORMALS: no JVD Resp: COMMON NORMALS: normal respiratory effort, No retractions and No use of accessory muscles AUSCULTATION: wheezes Cardio: COMMON NORMALS: no JVD, regular rate, regular rhythm, S1 normal heart sound present and S2 normal heart sound present RATE: regular rate RHYTHM: regular rhythm HEART SOUNDS: S1 normal heart sound present and S2 normal heart sound present GI: COMMON NORMALS: Normal to inspection, nondistended, normoactive bowel sounds present, Soft to palpation, non-tender, No hepatosplenomegaly present, no masses and no bruits PALPATION: Yes Soft to palpation and Yes No hepatosplenomegaly present Extremity: COMMON NORMALS: capillary refill normal, no clubbing, cyanosis or edema, no calf tenderness and no pedal edema Neuro: SENSORIUM/ORIENTATION: Yes oriented to person, No oriented to place and No oriented to time Psych: COMMON NORMALS: mental status grossly normal Data : 03/04/20 05:15 03/04/20 05:15 A&P Assessment and plan (1) Acute delirium: -Much more alert, awake, follows commands, no agitation -Afebrile -On room air -Blood cultures have been negative -Likely related to underlying dementia -Has failed Zyprexa, Haldol, Ativan -Continue Geodon 10 mg twice daily, no QTC prolongation -CT of the head no acute stroke, but does show 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 -Bilateral lower extremity ultrasounds negative for DVT -Bilateral lower lobe pneumonias, does have a significant right-sided pneumonia, concerning for aspiration event -BNP elevated, echo pending, has some component of heart failure -Currently on room air, not in respiratory distress, answering all questions, has no shortness of breath complaints Plan: -Unfortunately anticoagulation is contraindicated given his severe history of GI bleed, current GI bleed, anemia, risk of falls -We will discuss with cardiothoracic surgery, and hematology if there is any indication for IVC filter -Started on broad-spectrum antibiotics vancomycin, Rocephin, azithromycin -BNP over 6000 ordered, echocardiogram shows moderately decreased left ventricular systolic function, global left ventricle hypokinesia, EF 45%, grade 1 out of 4 diastolic dysfunction -Possibly could have cardiorenal syndrome given creatinine 2.4, an EF of 45%, 40 mg Lasix BID -Troponins minimally elevated, type II NSTEMI, supply demand ischemia, no significant right heart strain from pulmonary emboli -Albuterol, Advair, nebulizer -Oxygen therapy, currently on room air -Broad-spectrum antibiotics Rocephin azithromycin -Sputum cultures, blood cultures so far negative -I had a discussion with patient, and feel that he understood exactly what I was saying, I do not feel that he understood the risks and benefits, given his dementia -I spoke to patient's daughter Christin she lives in [place], phone #[phone], she is his healthcare power of vessel liner, I had an extensive discussion about patient's predicament, GI bleed, pneumonia, pulmonary emboli. Options I laid out to her was trying anticoagulation and seeing how his hemoglobin responded, if he got developed another GI bleed, pursuing IVC filter, risks and benefits discussed, or holding off on interventions and seeing how his respiratory status and hemoglobin does. In addition I discussed doing a repeat EGD, as she does not know where there the history of bleed originated, but sounds like when he was admitted for COVID-19 he had a bleed requiring multiple transfusions, obviously doing EGD given PEs carry significant morbidity mortality risks. After discussion, patient's daughter would like to hold off on aggressive interventions, wants to hold off on anticoagulation, hold off on IVC filter, hold off on the EGD, and see how he does clinically. Advised the risk and benefits, which is in, all questions answered, agreed to proceed Status: Acute (3) CAD (coronary artery disease): -Troponins baseline 39, 6-hour 42.28 -Non-ST elevation DE, likely type II, supply demand ischemia from pulmonary emboli, pneumonia -Continue statin, cannot take aspirin due to severe GI bleeds, Status: Chronic (4) CHF (congestive heart failure): Systolic and diastolic echo ordered: 1-Normal left ventricular cavity size. Moderately decreased left ventricular systolic function. Global left ventricular hypokinesis. Left ventricular ejection fraction is estimated at 45 %. Grade I/IV diastolic dysfunction (abnormal relaxation filling pattern), normal to mildly elevated filling pressures. 2-Moderate aortic valve calcification. Mild aortic valve stenosis, mean gradient 3.3 mmHg, DAX 2.7 cm squared. No aortic valve regurgitation. 3-There is no pericardial effusion. 4-Pulmonary artery systolic pressure is within normal limits. 5-Right atrial pressure is around 5 mm of mercury. 6-There are no prior echocardiogram studies to compare. lasix 40mg BID Status: Chronic Qualifiers: Heart failure type: unspecified Heart failure chronicity: chronic Qualified Code(s): I50.9 - Heart failure, unspecified (5) History of 2019 novel coronavirus disease (COVID-19): In January 2020 with hypercoagulablity with pulmonary Status: Chronic (6) Recurrent falls: Recurrent falls, was at assisted living facility at [facility], but after multiple falls, was sent to shelter for physical therapy -Anticoagulation is relatively contraindicated due to multiple falls Status: Chronic (7) COPD (chronic obstructive pulmonary disease): Not currently acutely exacerbated but at risk for such Status: Chronic Qualifiers: COPD type: unspecified COPD Qualified Code(s): J44.9 - Chronic obstructive pulmonary disease, unspecified (8) Dementia without behavioral disturbance: Atwilly and Griselda Status: Chronic Qualifiers: Dementia type: unspecified type Qualified Code(s): F03.90 - Unspecified dementia without behavioral disturbance (9) CKD (chronic kidney disease) stage 3, GFR 30-59 ml/min: Creatinine 2.4, improving with Lasix, likely cardiorenal syndrome, continue Status: Chronic Qualifiers: Chronic kidney disease stage 3 subtype: stage 3b (GFR 30-44) Qualified Code(s): N18.32 - Chronic kidney disease, stage 3b (10) Anaphylaxis: With unclear antigen at this point in time. Could have been something in the ambulance. I think it is also possible that what was seen as anaphylaxis was related potentially to other acute process though he responded to treatment appropriately. Thus far no recurrence. He did receive Covid vaccine 3 days ago. Seems a little removed to be a vaccine reaction though it was considered. -Currently no rash, no hypotensive episodes, continue to monitor Status: Acute Qualifiers: Encounter type: initial encounter Qualified Code(s): T78.2XXA - Anaphylactic shock, unspecified, initial encounter (11) Pulmonary embolism: Suspicion based on findings from perfusion imaging per radiology report. Status: Acute Qualifiers: Acute cor pulmonale presence: without acute cor pulmonale Chronicity: acute Pulmonary embolism type: unspecified Qualified Code(s): I26.99 - Other pulmonary embolism without acute cor pulmonale (12) Bilateral pneumonia: Status: Acute Qualifiers: Lung location: lower lobe of lung Pneumonia type: due to unspecified organism Qualified Code(s): J18.9 - Pneumonia, unspecified organism (13) GERD (gastroesophageal reflux disease): Status: Chronic (14) Hypertension: Status: Chronic (15) Hyperlipidemia: Status: Chronic (16) DM type 2 (diabetes mellitus, type 2): Status: Chronic Qualifiers: Diabetes mellitus usp insulin use: without equipment operator intermodal yard use Diabetes mellitus complication status: with kidney complications Diabetes mellitus complication detail: with chronic kidney disease Chronic kidney disease stage: stage 3 (moderate) Chronic kidney disease stage 3 subtype: stage 3b (GFR 30-44) Qualified Code(s): E11.21 - Type 2 diabetes mellitus with diabetic nephropathy; N18.32 - Chronic kidney disease, stage 3b (17) GI bleed: -As evidenced by melena, heme positive stools in the emergency room and drop in H&H. Patient is chronically on vitamin C supplementation and I suspect he is probably been on steroids recently for Covid -Did require transfusions during his COVID-19 admission according to daughter was secondary to blood thinners, will await records -For now trend hemoglobins, currently stable -Transfuse if hemoglobin less than 8 -Protonix, Carafate -Monitor hemodynamics closely -For now elective EGD carry significant risks, significant morbidity mortality, given bilateral pulmonary emboli -Certainly if emergent EGD is required, will discuss with surgery Status: Acute Qualifiers: GI bleed type/associated pathology: melena Qualified Code(s): K92.1 - Melena (18) NSTEMI (non-ST elevated myocardial infarction): Status: Acute (19) Sinus tachycardia: -EKG shows sinus tachycardia, some features of atrial flutter - likely beta-martha withdrawal, as he has not taken Coreg in many days due to agitation -Agreeable to take Coreg this morning, heart rates are better in the 90s, sinus tachycardia -Continue telemetry monitoring -Nonetheless given acute atrial flutter, anticoagulation is contraindicated given GI bleeding about Status: Acute Additional A&P Information Inpatient admission Daughter is aware of the difficulty of consideration of treatment for PE in the setting of possibility of GI bleed. She indicated that he had a life-threatening GI bleed previously with anticoagulation. I did not personally speak with her but Dr. Winter did from the emergency room. I spoke to patient's daughter the afternoon on 03/01/2020, she confirmed severe life-threatening GI bleed. We will try to get records we will see how patient does and make further determination and plans of care. I reviewed with the patient what the current plans were and the reasoning behind him but it is hard to know how much he understands. He is agreeable with anything that I say presently. 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 for [facility] Fwd Diagnoses Acute delirium R41.0 Acute respiratory failure with hypoxia J96.01 CAD (coronary artery disease) I25.10 CHF (congestive heart failure) I50.9 Heart failure type: unspecified Heart failure chronicity: chronic History of 2019 novel coronavirus disease (COVID-19) Z86.19 Recurrent falls R29.6 COPD (chronic obstructive pulmonary disease) J44.9 COPD type: unspecified COPD Dementia without behavioral disturbance F03.90 Dementia type: unspecified type CKD (chronic kidney disease) stage 3, GFR 30-59 ml/min N18.32 Chronic kidney disease stage 3 subtype: stage 3b (GFR 30-44) Anaphylaxis T78.2XXA Encounter type: initial encounter Pulmonary embolism I26.99 Acute cor pulmonale presence: without acute cor pulmonale Chronicity: acute Pulmonary embolism type: unspecified Bilateral pneumonia J18.9 Lung location: lower lobe of lung Pneumonia type: due to unspecified organism GERD (gastroesophageal reflux disease) K21.9 Hypertension I10 Hyperlipidemia E78.5 DM type 2 (diabetes mellitus, type 2) E11.21; N18.32 Diabetes mellitus usp insulin use: without equipment operator intermodal yard use Diabetes mellitus complication status: with kidney complications Diabetes mellitus complication detail: with chronic kidney disease Chronic kidney disease stage: stage 3 (moderate) Chronic kidney disease stage 3 subtype: stage 3b (GFR 30-44) GI bleed K92.1 GI bleed type/associated pathology: melena NSTEMI (non-ST elevated myocardial infarction) I21.4 Sinus tachycardia R00.0
[2020-03-05] MEDS: ziprasidone 20 mg/mL SDV 10 MG IM (12:40)
[2020-03-05] MEDS: azithromycin 500 MG in sodium chloride 0.9% 250 ML 250 MG IV (12:41)
[2020-03-05 16:59] LABS: Glucose Point of Care 92 mg/dL (70-110)
[2020-03-05] MEDS: acetaminophen 325 mg Tablet 650 MG PO (18:37)
--- NOTE | 2020-03-05 19:18 | PC.NURSE ---
AT APPROX. 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 DUARTE NOTIFIED, RECEIVED ORDER TO GIVE 1 TIME DOSE OF METOPROLOL 5MG IVP. PTS HR RESOLVED 80S
[2020-03-05 20:32] LABS: Glucose Point of Care 123 mg/dL (70-110)
[2020-03-05] MEDS: cefTRIAXone 1,000 MG in sodium chloride 0.9% (plus) 50 ML 100 MG IV (20:56)
[2020-03-05] MEDS: FUROsemide 40 mg Tablet PO (20:56)
[2020-03-05] MEDS: atorvastatin 40 mg Tablet PO (20:56)
[2020-03-05] MEDS: fluticasone nasal spray 16gm Btl 1 SPRAY INTRANASAL (20:57)
[2020-03-05 21:16] LABS: Basophils # 0.1 10^3/uL (0.0-0.1); Basophils % 0.6 %; Eosinophils # 0.4 10^3/uL (0.0-0.8); Eosinophils % 3.8 %; Hematocrit 35.2 % (42.0-52.0); Hemoglobin 11.1 g/dL (11.7-16.6); Lymphocytes # 1.3 10^3/uL (0.8-4.8); Mean Corpuscular HGB Conc 31.5 g/dL (30.0-36.0); Mean Corpuscular Hemoglobin 30.2 pg (28.0-34.0); Mean Corpuscular Volume 95.9 fL (80-94); Mean Platelet Volume 10.2 fL (7.4-10.4); Monocytes # 1.1 10^3/uL (0.2-0.9); Monocytes % 11.5 %; Neutrophils # 6.28 10^3/uL (1.8-7.7); Neutrophils % 66.6 %; Nucleated Red Blood Cells % 0 %; Platelet Count 185 10^3/cmm (130-400); Red Blood Count 3.67 10^6/uL (4.1-5.3); Red Cell Distribution Width 13.1 % (12.1-15.1); White Blood Count 9.4 10^3/uL (4.0-10.0)
[2020-03-05 21:41] LABS: Alanine Aminotransferase 11 U/L (0-41); Albumin Level 2.8 g/dL (3.5-5.2); Alkaline Phosphatase 70 IU/L (40-130); Aspartate Amino Transferase 12 U/L (0-40); Blood Urea Nitrogen 40 mg/dL (8-23); Calcium 8.6 mg/dL (8.5-10.5); Carbon Dioxide 25 mmol/L (22-29); Chloride 103 mmol/L (98-107); Globulin 2.6 g/dL (1.3-4.6); Glucose 124 mg/dL (65-115); Magnesium 2.2 mg/dL (1.7-2.3); Osmolality Calculated 305 mOsm/kg (285-295); Phosphorus 3.9 mg/dL (2.5-4.5); Sodium 142 mmol/L (136-145); Total Bilirubin 0.5 mg/dL (0.15-1.2); Total Protein 5.4 g/dL (6.6-8.7)
[2020-03-06] VITALS (11 sets, daily range): BP systolic 119–163; BP diastolic 60–80; PULSE 68–86; RESP 17–21; TEMP 36.4–37; O2SAT 90–96
[2020-03-06] MEDS: ziprasidone 20 mg/mL SDV 10 MG IM (00:05)
[2020-03-06] MEDS: vancomycin 1,250 MG/250 ML PIGGYBACK 250 MG IV (03:59)
[2020-03-06 05:11] LABS: Basophils % 0.4 %; Eosinophils # 0.4 10^3/uL (0.0-0.8); Eosinophils % 4.6 %; Hemoglobin 10.9 g/dL (11.7-16.6); Lymphocytes # 1.4 10^3/uL (0.8-4.8); Lymphocytes % 14.7 %; Mean Corpuscular HGB Conc 31.1 g/dL (30.0-36.0); Mean Corpuscular Hemoglobin 29.6 pg (28.0-34.0); Mean Corpuscular Volume 95.1 fL (80-94); Mean Platelet Volume 10.4 fL (7.4-10.4); Monocytes # 1.1 10^3/uL (0.2-0.9); Monocytes % 12.1 %; Neutrophils # 5.96 10^3/uL (1.8-7.7); Neutrophils % 64.9 %; Nucleated Red Blood Cells % 0 %; Platelet Count 178 10^3/cmm (130-400); Red Blood Count 3.68 10^6/uL (4.1-5.3); White Blood Count 9.2 10^3/uL (4.0-10.0)
[2020-03-06 05:20] LABS: Vancomycin Trough 19.2 ug/mL (10-15)
[2020-03-06] MEDS: sucralfate 1 gm Tablet PO ×4 (06:19→21:29)
[2020-03-06 06:42] LABS: Glucose Point of Care 108 mg/dL (70-110)
[2020-03-06 06:47] LABS: Alanine Aminotransferase 11 U/L (0-41); Albumin Level 2.8 g/dL (3.5-5.2); Alkaline Phosphatase 71 IU/L (40-130); Anion Gap 16.8 (5-19); Aspartate Amino Transferase 14 U/L (0-40); Blood Urea Nitrogen 38 mg/dL (8-23); Calcium 8.4 mg/dL (8.5-10.5); Carbon Dioxide 26 mmol/L (22-29); Chloride 104 mmol/L (98-107); Globulin 2.7 g/dL (1.3-4.6); Glucose 112 mg/dL (65-115); Magnesium 2.1 mg/dL (1.7-2.3); Osmolality Calculated 306 mOsm/kg (285-295); Phosphorus 3.9 mg/dL (2.5-4.5); Potassium 3.8 mmol/L (3.5-5.1); Sodium 143 mmol/L (136-145); Total Bilirubin 0.4 mg/dL (0.15-1.2); Total Protein 5.5 g/dL (6.6-8.7)
[2020-03-06] MEDS: cholecalciferol (vitamin D3) 5,000 unit Tablet 5000 UNIT PO (10:08)
[2020-03-06] MEDS: cyanocobalamin 1,000 mcg Tablet 1000 MCG PO (10:08)
[2020-03-06] MEDS: carvedilol 12.5 mg Tablet PO ×2 (10:08→21:29)
[2020-03-06] MEDS: FUROsemide 40 mg Tablet PO ×2 (10:08→21:29)
[2020-03-06] MEDS: pantoprazole DR 40 mg Tablet PO ×2 (10:08→17:08)
[2020-03-06] MEDS: fluticasone nasal spray 16gm Btl 1 SPRAY INTRANASAL ×2 (10:09→21:31)
[2020-03-06] MEDS: ferrous sulfate EC 325 mg Tablet PO ×3 (10:09→21:30)
[2020-03-06] MEDS: potassium chloride ER 20 mEq Tablet PO (10:09)
[2020-03-06 10:38] LABS: Glucose Point of Care 115 mg/dL (70-110)
--- NOTE | 2020-03-06 11:07 | P.PN_ITS ---
Subjective Subjective: Interval history: Patient was seen and examined this morning.He Denied any chest pain, sob, cough, fever, nausea, vomiting. He is saturating well on R.A. His other vitals and labs have been reviewed. Medications: Reviewed: Yes Vitals/I&O/Wt Last Vital Signs Temp 97.5 F L 03/06/20 07:34 Pulse 70 03/06/20 07:50 Resp 18 03/06/20 07:50 BP 122/60 03/06/20 07:34 Pulse Ox 96 03/06/20 07:50 03/05/20 03/06/20 03/06/20 22:59 06:59 14:59 Intake Total 120 / 400 0 / 400 360 / 360 Output Total 300 / 300 Balance 120 / 400 0 / 400 60 / 60 Physical Exam Const: COMMON NORMALS: patient oriented x3 HENMT: COMMON NORMALS: normocephalic and atraumatic HEAD & SCALP: normocephalic and atraumatic Eye: COMMON NORMALS: no scleral icterus Chest: COMMONS NORMALS: normal inspection of the chest and normal palpation of entire chest wall CHEST: Yes Symmetrical chest wall rise Resp: COMMON NORMALS: normal respiratory effort, No retractions, No use of accessory muscles and clear to auscultation bilaterally EFFORT & INSPECTION: Yes symmetric chest movement AUSCULTATION: clear to auscultation bilaterally Cardio: COMMON NORMALS: regular rate, regular rhythm, S1 normal heart sound present, S2 normal heart sound present, No gallops present (Cardio), No murmurs present (Cardio), No rub (Cardio) and Peripheral pulses 2+ throughout RATE: regular rate RHYTHM: regular rhythm HEART SOUNDS: S1 normal heart sound present and S2 normal heart sound present PERIPHERAL PULSES: Peripheral pulses 2+ throughout GI: COMMON NORMALS: Normal to inspection, nondistended, normoactive bowel sounds present, Soft to palpation, non-tender, No hepatosplenomegaly present and no masses AUSCULTATION: Yes normoactive bowel sounds PALPATION: Yes Soft to palpation and Yes No hepatosplenomegaly present RECTAL EXAM: Yes deferred Extremity: COMMON NORMALS: no clubbing, cyanosis or edema and no pedal edema Neuro: COMMON NORMALS: patient oriented x3 Data : 03/06/20 04:15 03/06/20 04:15 A&P Assessment and plan (1) Acute delirium: -Resolved -Afebrile -On room air -Blood cultures have been negative -Likely related to underlying dementia -Has failed Zyprexa, Haldol, Ativan -Continue Geodon 10 mg twice daily, no QTC prolongation -CT of the head no acute stroke, but does show 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 -Bilateral lower extremity ultrasounds negative for DVT -Bilateral lower lobe pneumonias, does have a significant right-sided pneumonia, concerning for aspiration event -BNP elevated, echo pending, has some component of heart failure -Currently on room air, not in respiratory distress, answering all questions, has no shortness of breath complaints Plan: -Unfortunately anticoagulation is contraindicated given his severe history of GI bleed, current GI bleed, anemia, risk of falls -We will discuss with cardiothoracic surgery, and hematology if there is any indication for IVC filter -Started on broad-spectrum antibiotics vancomycin, Rocephin, azithromycin -BNP over 6000 ordered, echocardiogram shows moderately decreased left ventricular systolic function, global left ventricle hypokinesia, EF 45%, grade 1 out of 4 diastolic dysfunction -Possibly could have cardiorenal syndrome given creatinine 2.4, an EF of 45%, 40 mg Lasix BID -Troponins minimally elevated, type II NSTEMI, supply demand ischemia, no significant right heart strain from pulmonary emboli -Albuterol, Advair, nebulizer -Oxygen therapy, currently on room air -Broad-spectrum antibiotics Rocephin azithromycin -Sputum cultures, blood cultures so far negative -I had a discussion with patient, and feel that he understood exactly what I was saying, I do not feel that he understood the risks and benefits, given his dementia -Patient's daughter Christin she lives in [place], phone #[phone], she is his healthcare power of trademark attorney, I had an extensive discussion about patient's p redicament, GI bleed, pneumonia, pulmonary emboli. Options I laid out to her was trying anticoagulation and seeing how his hemoglobin responded, if he got developed another GI bleed, pursuing IVC filter, risks and benefits discussed, or holding off on interventions and seeing how his respiratory status and hemoglobin does. In addition I discussed doing a repeat EGD, as she does not know where there the history of bleed originated, but sounds like when he was admitted for COVID-19 he had a bleed requiring multiple transfusions, obviously doing EGD given PEs carry significant morbidity mortality risks. After discussion, patient's daughter would like to hold off on aggressive interventions, wants to hold off on anticoagulation, hold off on IVC filter, hold off on the EGD, and see how he does clinically. Advised the risk and benefits, which is in, all questions answered, agreed to proceed Status: Acute (3) CAD (coronary artery disease): -Troponins baseline 39, 6-hour 42.28 -Non-ST elevation GA, likely type II, supply demand ischemia from pulmonary emboli, pneumonia -Continue statin, cannot take aspirin due to severe GI bleeds, Status: Chronic (4) CHF (congestive heart failure): Systolic and diastolic echo ordered: 1-Normal left ventricular cavity size. Moderately decreased left ventricular systolic function. Global left ventricular hypokinesis. Left ventricular ejection fraction is estimated at 45 %. Grade I/IV diastolic dysfunction (abnormal relaxation filling pattern), normal to mildly elevated filling pressures. 2-Moderate aortic valve calcification. Mild aortic valve stenosis, mean gradient 3.3 mmHg, DAX 2.7 cm squared. No aortic valve regurgitation. 3-There is no pericardial effusion. 4-Pulmonary artery systolic pressure is within normal limits. 5-Right atrial pressure is around 5 mm of mercury. 6-There are no prior echocardiogram studies to compare. Plan : lasix 40mg PO BID Status: Chronic Qualifiers: Heart failure type: unspecified Heart failure chronicity: chronic Qualified Code(s): I50.9 - Heart failure, unspecified (5) History of 2019 novel coronavirus disease (COVID-19): In January 2020 with hypercoagulablity with pulmonary Status: Chronic (6) Recurrent falls: Recurrent falls, was at assisted living facility at [facility], but after multiple falls, was sent to residential for physical therapy -Anticoagulation is relatively contraindicated due to multiple falls Status: Chronic (7) COPD (chronic obstructive pulmonary disease): Not currently acutely exacerbated but at risk for such Status: Chronic Qualifiers: COPD type: unspecified COPD Qualified Code(s): J44.9 - Chronic obstructive pulmonary disease, unspecified (8) Dementia without behavioral disturbance: Jurgen Status: Chronic Qualifiers: Dementia type: unspecified type Qualified Code(s): F03.90 - Unspecified dementia without behavioral disturbance (9) CKD (chronic kidney disease) stage 3, GFR 30-59 ml/min: Creatinine 2.6 Baseline SCR unkown Monitor SCR Status: Chronic Qualifiers: Chronic kidney disease stage 3 subtype: stage 3b (GFR 30-44) Qualified Code(s): N18.32 - Chronic kidney disease, stage 3b (10) Anaphylaxis: With unclear antigen at this point in time. Could have been something in the ambulance. I think it is also possible that what was seen as anaphylaxis was related potentially to other acute process though he responded to treatment appropriately. Thus far no recurrence. He did receive Covid vaccine 3 days ago. Seems a little removed to be a vaccine reaction though it was considered. -Currently no rash, no hypotensive episodes, continue to monitor Status: Acute Qualifiers: Encounter type: initial encounter Qualified Code(s): T78.2XXA - Anaphylactic shock, unspecified, initial encounter (11) Pulmonary embolism: Suspicion based on findings from perfusion imaging per radiology report. Status: Acute Qualifiers: Acute cor pulmonale presence: without acute cor pulmonale Chronicity: acute Pulmonary embolism type: unspecified Qualified Code(s): I26.99 - Other pulmonary embolism without acute cor pulmonale (12) Bilateral pneumonia: Status: Acute Qualifiers: Lung location: lower lobe of lung Pneumonia type: due to unspecified organism Qualified Code(s): J18.9 - Pneumonia, unspecified organism (13) GERD (gastroesophageal reflux disease): Status: Chronic (14) Hypertension: Status: Chronic (15) Hyperlipidemia: Status: Chronic (16) DM type 2 (diabetes mellitus, type 2): Status: Chronic Qualifiers: Diabetes mellitus long term care social worker insulin use: without shelter use Diabetes mellitus complication status: with kidney complications Diabetes mellitus complication detail: with chronic kidney disease Chronic kidney disease stage: stage 3 (moderate) Chronic kidney disease stage 3 subtype: stage 3b (GFR 30-44) Qualified Code(s): E11.21 - Type 2 diabetes mellitus with diabetic nephropathy; N18.32 - Chronic kidney disease, stage 3b (17) GI bleed: -As evidenced by melena, heme positive stools in the emergency room and drop in H&H. Patient is chronically on vitamin C supplementation and I suspect he is probably been on steroids recently for Covid -Did require transfusions during his COVID-19 admission according to daughter was secondary to blood thinners, will await records -For now trend hemoglobins, currently stable -Transfuse if hemoglobin less than 8 -Protonix, Carafate -Monitor hemodynamics closely -For now elective EGD carry significant risks, significant morbidity mortality, given bilateral pulmonary emboli -Certainly if emergent EGD is required, will discuss with surgery Status: Acute Qualifiers: GI bleed type/associated pathology: melena Qualified Code(s): K92.1 - Melena (18) NSTEMI (non-ST elevated myocardial infarction): Status: Acute (19) Sinus tachycardia: -EKG shows sinus tachycardia, some features of atrial flutter - likely beta-martha withdrawal, as he has not taken Coreg in many days due to agitation -Agreeable to take Coreg this morning, heart rates are better in the 90s, sinus tachycardia -Continue telemetry monitoring -Nonetheless given acute atrial flutter, anticoagulation is contraindicated given GI bleeding about Status: Acute Additional A&P Information Inpatient admission Daughter is aware of the difficulty of consideration of treatment for PE in the setting of possibility of GI bleed. She indicated that he had a life- threatening GI bleed previously with anticoagulation. I did not personally speak with her but Dr. Winter did from the emergency room. I spoke to juan pinedo's daughter the afternoon on 03/01/2020, she confirmed severe life-threatening GI bleed. We will try to get records we will see how patient does and make further determination and plans of care. I reviewed with the patient what the current plans were and the reasoning behind him but it is hard to know how much he understands. He is agreeable with anything that I say presently. Attestations Medical Necessity Statement*: Patient needs to be in hospital for the management of g.i Bleed, PNA, P.E and need for safe placement, pending P/T evaluation and Recommendations Coding Level of Care Code Acute Regional Administrative Assistant for Chg Fwd Diagnoses Acute delirium R41.0 Acute respiratory failure with hypoxia J96.01 CAD (coronary artery disease) I25.10 CHF (congestive heart failure) I50.9 Heart failure type: unspecified Heart failure chronicity: chronic History of 2019 novel coronavirus disease (COVID-19) Z86.19 Recurrent falls R29.6 COPD (chronic obstructive pulmonary disease) J44.9 COPD type: unspecified COPD Dementia without behavioral disturbance F03.90 Dementia type: unspecified type CKD (chronic kidney disease) stage 3, GFR 30-59 ml/min N18.32 Chronic kidney disease stage 3 subtype: stage 3b (GFR 30-44) Anaphylaxis T78.2XXA Encounter type: initial encounter Pulmonary embolism I26.99 Acute cor pulmonale presence: without acute cor pulmonale Chronicity: acute Pulmonary embolism type: unspecified Bilateral pneumonia J18.9 Lung location: lower lobe of lung Pneumonia type: due to unspecified organism GERD (gastroesophageal reflux disease) K21.9 Hypertension I10 Hyperlipidemia E78.5 DM type 2 (diabetes mellitus, type 2) E11.21; N18.32 Diabetes mellitus shelter insulin use: without long term care social worker use Diabetes mellitus complication status: with kidney complications Diabetes mellitus complication detail: with chronic kidney disease Chronic kidney disease stage: stage 3 (moderate) Chronic kidney disease stage 3 subtype: stage 3b (GFR 30-44) GI bleed K92.1 GI bleed type/associated pathology: melena NSTEMI (non-ST elevated myocardial infarction) I21.4 Sinus tachycardia R00.0
[2020-03-06] MEDS: azithromycin 500 MG in sodium chloride 0.9% 250 ML 250 MG IV (13:29)
[2020-03-06 16:07] LABS: Glucose Point of Care 149 mg/dL (70-110)
[2020-03-06 20:41] LABS: Glucose Point of Care 146 mg/dL (70-110)
[2020-03-06] MEDS: atorvastatin 40 mg Tablet PO (21:30)
[2020-03-06] MEDS: cefTRIAXone 1,000 MG in sodium chloride 0.9% (plus) 50 ML 100 MG IV (21:31)
[2020-03-07] VITALS: BP 130/71; PULSE 80; RESP 18; TEMP 36.9; O2SAT 92
[2020-03-07 04:00] VITALS: BP 159/66; PULSE 74; RESP 18; TEMP 36.8; O2SAT 92
[2020-03-07 07:14] LABS: Glucose Point of Care 118 mg/dL (70-110)
[2020-03-07] MEDS: ferrous sulfate EC 325 mg Tablet PO (07:47)
[2020-03-07] MEDS: FUROsemide 40 mg Tablet PO (07:48)
[2020-03-07] MEDS: cyanocobalamin 1,000 mcg Tablet 1000 MCG PO (07:50)
[2020-03-07] MEDS: sucralfate 1 gm Tablet PO (07:50)
[2020-03-07] MEDS: fluticasone nasal spray 16gm Btl 1 SPRAY INTRANASAL (07:50)
[2020-03-07] MEDS: cholecalciferol (vitamin D3) 5,000 unit Tablet 5000 UNIT PO (07:50)
[2020-03-07] MEDS: carvedilol 12.5 mg Tablet PO (07:59)
[2020-03-07] MEDS: potassium chloride ER 20 mEq Tablet PO (07:59)
[2020-03-07] MEDS: pantoprazole DR 40 mg Tablet PO (07:59)
[2020-03-07 08:00] VITALS: BP 139/74; PULSE 73; PULSE 84; RESP 17; RESP 18; TEMP 36.3; O2SAT 90; O2SAT 93
[2020-03-07 10:49] LABS: Glucose Point of Care 138 mg/dL (70-110)
[2020-03-07 11:18] VITALS: PULSE 81; RESP 18; O2SAT 90
[2020-03-07 11:23] VITALS: BP 120/71; PULSE 79; RESP 17; TEMP 36.5; O2SAT 91
--- NOTE | 2020-03-07 13:06 | PC.SOCIAL ---
*IMM Update* Gave IMM via phone to pt's Son-In-Law, Asif. He understood. (Pt's daughter didn't answer her phone)
[2020-03-07 15:26] VITALS: BP 120/71; PULSE 79; RESP 17; TEMP 36.5; O2SAT 91
--- NOTE | 2020-03-07 15:43 | P.DS_ITS ---
Discharge Providers Date of Admission: 02/29/20 22:10 Date of Discharge: March 07, 2020 Attending Provider at Admission: Ana Maria Guardado MD Attending Provider at Discharge: Segundo Kiser MD Diagnoses at Discharge Discharge Diagnosis (1) CAD (coronary artery disease): Status: Chronic (2) CHF (congestive heart failure): Status: Chronic Qualifiers: Heart failure type: unspecified Heart failure chronicity: chronic Qualified Code(s): I50.9 - Heart failure, unspecified (3) History of 2019 novel coronavirus disease (COVID-19): Status: Chronic (4) COPD (chronic obstructive pulmonary disease): Status: Chronic Qualifiers: COPD type: unspecified COPD Qualified Code(s): J44.9 - Chronic obstructive pulmonary disease, unspecified (5) Dementia without behavioral disturbance: Status: Chronic Qualifiers: Dementia type: unspecified type Qualified Code(s): F03.90 - Unspecified dementia without behavioral disturbance (6) CKD (chronic kidney disease) stage 3, GFR 30-59 ml/min: Status: Chronic Qualifiers: Chronic kidney disease stage 3 subtype: stage 3b (GFR 30-44) Qualified Code(s): N18.32 - Chronic kidney disease, stage 3b (7) Pulmonary embolism: Status: Chronic Qualifiers: Acute cor pulmonale presence: without acute cor pulmonale Chronicity: acute Pulmonary embolism type: unspecified Qualified Code(s): I26.99 - Other pulmonary embolism without acute cor pulmonale (8) Hypertension: Status: Chronic (9) Hyperlipidemia: Status: Chronic (10) DM type 2 (diabetes mellitus, type 2): Status: Chronic Qualifiers: Diabetes mellitus continuous churn buttermaker insulin use: without halfway use Diabetes mellitus complication status: with kidney complications Diabetes mellitus complication detail: with chronic kidney disease Chronic kidney disease stage: stage 3 (moderate) Chronic kidney disease stage 3 subtype: stage 3b (GFR 30-44) Qualified Code(s): E11.21 - Type 2 diabetes mellitus with diabetic nephropathy; N18.32 - Chronic kidney disease, stage 3b Reason for Visit Reason for Visit: SOB Hospital Course Hospital Course 75 year old with PMH of CAD,CHF,CKD ,DM, COPD, P.E, (not on AC), HTN, Dementia, O.A sent from jail due to low oxygen saturations on 2 L by nasal cannula, emesis and black tarry stools along with abdominal pain. Concern was for possibility of GI bleed. He does have a history of GI bleed previously associated with anticoagulation that was quite severe according to information from family. In route to the hospital patient was normotensive however shortly after arriving to the emergency room he became hypotensive with systolic pressures into the 60s.He was noted to have a rash on his abdomen that spread to involve his entire trunk extending up to his perioral area and both upper and lower extremities. He had received no specific treatment in route beyond oxygen from EMS. No report of him having received any medications just prior to this event. He was suspected to be having an anaphylactic reaction and received 2 doses of IM epinephrine, 125 mg of Solu-Medrol and 50 mg of Benadryl along with 40 mg of IV Pepcid. In addition he received some IV fluids, roughly 500 mls. Vital signs improved and rash dissipated. Mr. Medina continued to be hypoxic requiring significant supplemental oxygen.D-dimer was checked and was found to be greater than 20. Secondary to renal dysfunction patient was not a candidate for contrast so VQ scan was ordered.Patient was only able to do the perfusion portion of the study but there were multiple perfusion defects indicated in both lungs considered suspicious for pulmonary emboli.Stool was also identified as being Hemoccult positive and hemoglobin dropped from 13 to 11.He was never started on Ac during the hospital stay as he has h/o severe prior G.I Bleed on Ac requiring multiple blood transfusion. During this hospital stay he was managed for Ac hypoxic r/f likely 2/2 to Ac P.E based on high clinical suspicion on V/Q Scan,as well as possible PNA.Bilateral lower extremity ultrasounds negative for DVT. Xray chest : was consistent with Bilateral lower lobe pneumonias, does have a significant right-sided pneumonia, concerning for aspiration event.He was kept on vancomycin, Rocephin, azithromycin.Sputum cultures, blood cultures were negative.Abx coverage was narrowed and at the time of discharge his respiratory status has much improved as he was saturating well on R.A , had no fever, cough, sob.He was discharged on PO levofloxacin t complete the ABx course. He was also managed for Type II M.I and due to concern for G.I Bleed he was just kept on statin and was never kept on asprin orther antiplatelet agent.Regarding starting him on Ac or doing any other extensive work up for G.I Bleed,Christin his daughter, she lives in [place], phone #[phone], she is his healthcare power of workers compensation attorney, I had an extensive discussion about patient's predicament, GI bleed, pneumonia, pulmonary emboli. Options I laid out to her was trying anticoagulation and seeing how his hemoglobin responded, if he got developed another GI bleed, pursuing IVC filter, risks and benefits discussed, or holding off on interventions and seeing how his respiratory status and hemoglobin does. In addition I discussed doing a repeat EGD, as she does not know where there the history of bleed originated, but sounds like when he was admitted for COVID-19 he had a bleed requiring multiple transfusions, obviously doing EGD given PEs carry significant morbidity mortality risks. After discussion, patient's da elizabethter would like to hold off on aggressive interventions, wants to hold off on anticoagulation, hold off on IVC filter, hold off on the EGD, and see how he does clinically. Advised the risk and benefits, which is in, all questions answered, agreed to proceed.At the time of discharge she was ok with starting his on low dose aspirin. He will start low dose aspirin after 2 weeks.His Hb was stable at the time discharge (10.9/35).No blood transfusion was needed during hospital stay.For his h/o HFrEF he was kept on lasix 40 po BID 2D echo during this admission showed Normal left ventricular cavity size. Moderately decreased left ventricular systolic function. Global left ventricular hypokinesis. Left ventricular ejection fraction is estimated at 45 %. Grade I/IV diastolic dysfunction (abnormal relaxation filling pattern), normal to mildly elevated filling pressures. Moderate aortic valve calcification. Mild aortic valve stenosis, mean gradient 3.3 mmHg, DAX 2.7 cm squared. No aortic valve regurgitation. There is no pericardial effusion. Pulmonary artery systolic pressure is within normal limits. Right atrial pressure is around 5 mm of mercury. There are no prior echocardiogram studies to compare. 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 Patient responded well to the above medical management and was discharged in stable to SNF.Family was pdated at the time of discharge and they were in agreement with the above plan. Patient will continue to follow his PCP as outpatient. Pertinent imaging Studies: CT abdomen pelvis wo con: 1. Patchy infiltrates with partial consolidation of the lung bases. Recommend correlation for pneumonia. 2. Left inguinal hernia containing a loop of sigmoid colon but no evidence of stimulation. No evidence of obstruction. 3. No evidence of small or large bowel obstruction. 4. Aortic endograft with biiliac extension. Aneurysmal infrarenal abdominal aorta measuring 3.7 x 4.1 CM. 5. Atrophic left kidney. 6. Severe L3-4 spinal canal narrowing due to slight anterolisthesis with disc osteophytic ridging and advanced arthropathy. Cultures;Blood Cultures:No growth. Physical Exam Const: COMMON NORMALS: patient oriented x3 HENMT: COMMON NORMALS: normocephalic and atraumatic HEAD & SCALP: normocephalic and atraumatic Chest: CHEST: Yes Symmetrical chest wall rise Resp: COMMON NORMALS: clear to auscultation bilaterally EFFORT & INSPECTION: Yes symmetric chest movement AUSCULTATION: clear to auscultation bilaterally Cardio: COMMON NORMALS: regular rate, regular rhythm, S1 normal heart sound present, S2 normal heart sound present, No gallops present (Cardio), No murmurs present (Cardio), No rub (Cardio) and Peripheral pulses 2+ throughout RATE: regular rate RHYTHM: regular rhythm HEART SOUNDS: S1 normal heart sound present and S2 normal heart sound present PERIPHERAL PULSES: Peripheral pulses 2+ throughout GI: COMMON NORMALS: Normal to inspection, nondistended, normoactive bowel sounds present, Soft to palpation, non-tender, No hepatosplenomegaly present and no masses AUSCULTATION: Yes normoactive bowel sounds PALPATION: Yes Soft to palpation and Yes No hepatosplenomegaly present RECTAL EXAM: Yes deferred Extremity: COMMON NORMALS: no clubbing, cyanosis or edema and no pedal edema Neuro: COMMON NORMALS: patient oriented x3 Discharge Data Data Completed and Pending: Completed Studies During Hospitalization Category Date Time Status CT abdomen pelvis wo con [id number] Urge nt Cat Scan 02/29/20 14:[address] head wo con* 7 [id number] Routine Cat Scan 03/03/20 14:17 Completed XR chest 1V raya ble [id number] Routine Exams 03/02/20 07:00 Completed XR chest 1V raya ble [id number] Urgent Exams 02/29/20 14:29 Completed NM pul perfusion [id number] Stat Nuc Med 02/29/20 17:03 Completed CV echo complete* [id number] Routine Ultrasound 03/01/20 08:37 [place] [id number] Routin e Ultrasound 03/01/20 06:00 Completed Pending at discharge Category Date Time Status Complete Blood Co unt w/Auto Routine Lab 03/07/20 06:57 Ordered Comprehensive Met abolic Panel Routi ne Lab 03/07/20 06:57 Ordered Magnesium Routine Lab 03/07/20 06:57 Ordered Phosphorus Routin e Lab 03/07/20 06:57 Ordered Sputum Culture an d Gram Stain Stat Lab 03/01/20 14:10 Uncollected Labs from last 24 hours 03/07/20 03/07/20 03/07/20 10:38 07:10 04:21 WBC Corrected WBC RBC Hgb Hct MCV MCH MCHC RDW Plt Count MPV Gran % Neut % (Auto) Lymph % (Auto) Coke % (Auto) Eos % (Auto) Baso % (Auto) Neut # (Auto) Lymph # (Auto) Coke # (Auto) Eos # (Auto) Baso # (Auto) Absolute Gran (aut o) Nucleated RBC % (a uto) Nucleated RBCs # Sodium Cancelled Potassium Cancelled Chloride Cancelled Carbon Dioxide Cancelled Anion Gap Cancelled BUN Cancelled Creatinine Cancelled GFR Calculation Cancelled Glucose Cancelled POC Glucose 138 H 118 H Calculated Osmolal ity Cancelled Calcium Cancelled Phosphorus Cancelled Magnesium Cancelled Total Bilirubin Cancelled AST Cancelled ALT Cancelled Alkaline Phosphata se Cancelled Total Protein Cancelled Albumin Cancelled Globulin Cancelled Misc Test Referenc e 03/07/20 03/06/20 03/06/20 04:21 20:30 16:03 WBC Cancelled Corrected WBC Cancelled RBC Cancelled Hgb Cancelled Hct Cancelled MCV Cancelled MCH Cancelled MCHC Cancelled RDW Cancelled Plt Count Cancelled MPV Cancelled Gran % Cancelled Neut % (Auto) Cancelled Lymph % (Auto) Cancelled Coke % (Auto) Cancelled Eos % (Auto) Cancelled Baso % (Auto) Cancelled Neut # (Auto) Cancelled Lymph # (Auto) Cancelled Coke # (Auto) Cancelled Eos # (Auto) Cancelled Baso # (Auto) Cancelled Absolute Gran (aut o) Cancelled Nucleated RBC % (a uto) Cancelled Nucleated RBCs # Cancelled Sodium Potassium Chloride Carbon Dioxide Anion Gap BUN Creatinine GFR Calculation Glucose POC Glucose 146 H 149 H Calculated Osmolal ity Calcium Phosphorus Magnesium Total Bilirubin AST ALT Alkaline Phosphata se Total Protein Albumin Globulin Misc Test Referenc e 02/29/20 17:37 WBC Corrected WBC RBC Hgb Hct MCV MCH MCHC RDW Plt Count MPV Gran % Neut % (Auto) Lymph % (Auto) Coke % (Auto) Eos % (Auto) Baso % (Auto) Neut # (Auto) Lymph # (Auto) Coke # (Auto) Eos # (Auto) Baso # (Auto) Absolute Gran (aut o) Nucleated RBC % (a uto) Nucleated RBCs # Sodium Potassium Chloride Carbon Dioxide Anion Gap BUN Creatinine GFR Calculation Glucose POC Glucose Calculated Osmolal ity Calcium Phosphorus Magnesium Total Bilirubin AST ALT Alkaline Phosphata se Total Protein Albumin Globulin Misc Test Referenc e See comment Vitals: Last Vital Signs Temp 97.7 F 03/07/20 11:23 Pulse 79 03/07/20 11:23 Resp 17 03/07/20 11:23 BP 120/71 03/07/20 11:23 Pulse Ox 91 03/07/20 11:23 Discharge Plan [facility] St[facility] Prescriptions: New carvedilol 12.5 mg tablet 12.5 mg PO BID Qty: 60 RF: 0 levofloxacin 500 mg tablet 500 mg PO Q48H 5 Days Qty: 3 RF: 0 Lasix 40 mg tablet 40 mg PO BID Qty: 60 RF: 0 Adult Aspirin Regimen 81 mg tablet,delayed release (DR/EC) 81 mg PO DAILY Qty: 30 RF: 0 Continued Vitamin C 1,000 mg Tablet 1,000 mg PO DAILY@08 RF: 0 Milk of Magnesia 400 mg/5 mL Suspension 30 ml PO DAILY PRN (Reason: Constipation) RF: 0 bisacodyl 10 mg Suppository 10 mg IA DAILY PRN (Reason: Constipation) RF: 0 Enema 19-7 gram/118 mL Enema 118 ml IA DAILY PRN (Reason: Constipation) RF: 0 docusate sodium 100 mg Capsule 100 mg PO DAILY PRN (Reason: Constipation) RF: 0 [place] 200-200-20 mg/5 mL Suspension 30 ml PO Q2H PRN (Reason: Heartburn) RF: 0 albuterol sulfate 90 mcg/actuation Hfa Aerosol Inhaler 1 inh INHALATION QID PRN (Reason: Shortness Of Breath) RF: 0 potassium chloride 20 mEq Tablet Extended Release 20 meq PO DAILY@08 RF: 0 Orajel 3X Mouth Sores 20-0.1-0.15 % Gel 1 ea MUCOUS MEMBRANE TID PRN (Reason: mouth sores) RF: 0 ferrous sulfate 325 mg (65 mg iron) Tablet 325 mg PO TID@,, RF: 0 hydralazine 50 mg Tablet 50 mg PO TID@,, RF: 0 atorvastatin 40 mg Tablet 40 mg PO DAILY@1999 RF: 0 acetaminophen [Tylenol] 325 mg Tablet 650 mg PO QID PRN (Reason: Pain) RF: 0 loperamide 2 mg Capsule 2 mg PO TID PRN (Reason: Diarrhea) RF: 0 cyanocobalamin (vitamin B-12) [Vitamin B-12] 1,000 mcg Tablet 1,000 mcg PO DAILY@0800 RF: 0 glucosamine sulfate [Glucosamine] 500 mg Tablet 500 mg PO BID@, RF: 0 meclizine 25 mg Tablet 25 mg PO Q6H PRN (Reason: Dizziness) RF: 0 pantoprazole 40 mg Tablet,Delayed Release (Dr/Ec) 40 mg PO DAILY@0800 RF: 0 fluticasone propionate 50 mcg/actuation [place],Suspension 1 spray INTRANASAL BID@, RF: 0 glipizide 5 mg Tablet 5 mg PO BID@, RF: 0 artificial tears with lanolin Ointment 1 applic OPHTHALMIC (EYE) BID PRN (Reason: Dry Eyes) RF: 0 cholecalciferol (vitamin D3) [Vitamin D3] 125 mcg (5,000 unit) Tablet 125 mcg PO DAILY@0800 RF: 0 Trelegy Ellipta 100-62.5-25 mcg Blister With Device 1 inh INHALATION DAILY@0800 RF: 0 Discontinued furosemide [Lasix] 40 mg Tablet 40 mg PO BID@, RF: 0 carvedilol 25 mg Tablet 25 mg PO BID@, RF: 0 Discharge Orders: Discharge Order (Routine); Ordered 03/07/20 Ordered By: Segundo Kiser Discharge Diet: Diabetic Discharge Activity: Increase activity as tolerated Discharge Attestations Time Spent in Discharge Care*: greater than 30 min Specific Discharge Activities: educating patient, educating and/or supporting family/caregiver, discussing with child welfare caseworker/social workers/dc planners, documenting/other paperwork and evaluating patient/reviewing data Status at Discharge: Cognitive status at discharge: cognitively intact , Behavioral status at discharge: cooperative , Functional status at discharge: other assisted ambulation Overall status at discharge: patient is back to baseline Quality Metrics Clinical Quality Measures During this hospital stay, did patient experience: None Coding Level of Care Code Acute Java Android Developer for Chg Fwd Diagnoses CAD (coronary artery disease) I25.10 CHF (congestive heart failure) I50.9 Heart failure type: unspecified Heart failure chronicity: chronic History of 2019 novel coronavirus disease (COVID-19) Z86.19 COPD (chronic obstructive pulmonary disease) J44.9 COPD type: unspecified COPD Dementia without behavioral disturbance F03.90 Dementia type: unspecified type CKD (chronic kidney disease) stage 3, GFR 30-59 ml/min N18.32 Chronic kidney disease stage 3 subtype: stage 3b (GFR 30-44) Pulmonary embolism I26.99 Acute cor pulmonale presence: without acute cor pulmonale Chronicity: acute Pulmonary embolism type: unspecified Hypertension I10 Hyperlipidemia E78.5 DM type 2 (diabetes mellitus, type 2) E11.21; N18.32 Diabetes mellitus continuous churn buttermaker insulin use: without halfway use Diabetes mellitus complication status: with kidney complications Diabetes mellitus complication detail: with chronic kidney disease Chronic kidney disease stage: stage 3 (moderate) Chronic kidney disease stage 3 subtype: stage 3b (GFR 30-44)
== END 2020-03-07 15:00 | disposition skilled nursing facility (03) | DRG 175 ==
LOC: ER 23:18 → MEDSURG 23:42
PROVIDERS: Family Medicine; Admitting Provider Hospitalist; Emergency Provider Family Medicine; Visit Provider Internal Medicine
DX: I26.99 Other pulmonary embolism without acute cor pulmonale (principal); J69.0 Pneumonitis due to inhalation of food and vomit; I21.A1 Myocardial infarction type 2; J96.01 Acute respiratory failure with hypoxia; T78.2XXA Anaphylactic shock, unspecified, initial encounter; K92.1 Melena; I13.0 Hypertensive heart and chronic kidney disease with heart failure and stage 1 through stage 4 chronic kidney disease, or unspecified chronic kidney disease; I50.42 Chronic combined systolic (congestive) and diastolic (congestive) heart failure; J44.0 Chronic obstructive pulmonary disease with (acute) lower respiratory infection; F05 Delirium due to known physiological condition; D68.8 Other specified coagulation defects; B94.8 Sequelae of other specified infectious and parasitic diseases; I95.9 Hypotension, unspecified; R21 Rash and other nonspecific skin eruption; D63.8 Anemia in other chronic diseases classified elsewhere; I25.10 Atherosclerotic heart disease of native coronary artery without angina pectoris; N18.32 Chronic kidney disease, stage 3b; E11.22 Type 2 diabetes mellitus with diabetic chronic kidney disease; F03.90 Unspecified dementia, unspecified severity, without behavioral disturbance, psychotic disturbance, mood disturbance, and anxiety; K21.9 Gastro-esophageal reflux disease without esophagitis; E78.5 Hyperlipidemia, unspecified; M19.90 Unspecified osteoarthritis, unspecified site; R29.6 Repeated falls; E54 Ascorbic acid deficiency; E55.9 Vitamin D deficiency, unspecified; Z95.810 Presence of automatic (implantable) cardiac defibrillator; Z87.891 Personal history of nicotine dependence; Z79.51 Long term (current) use of inhaled steroids; Z86.73 Personal history of transient ischemic attack (TIA), and cerebral infarction without residual deficits; I35.0 Nonrheumatic aortic (valve) stenosis; Z66 Do not resuscitate; E73.9 Lactose intolerance, unspecified
CPT/HCPCS: 12345; 36415; 36416; 36600; 70450; 71045; 74176; 78580; 80048; 80051; 80053; 80202; 82274; 82330; 82550; 82803; 82805; 82962; 83605; 83690; 83735; 83880; 84100; 84145; 84484; 85014; 85018; 85025; 85378; 85610; 85730; 86140; 86850; 86900; 87040; 87046; 93005; 93306; 93970; 94640; 96372; 96375; 97110; 97161; 97530; 99284; A9540; J0171; J0456; J0696; J1200; J1630; J1815; J1940; J1956; J2060; J2405; J2543; J2930; J3370; J3486; J3490; J3535; J7050; J7611

== ENCOUNTER 2020-03-19 07:18 | Emergency (ER) | payer MEDICARE, SELFPAY ==
[2020-03-19] VITALS (9 sets, daily range): BP systolic 107–130; BP diastolic 42–74; PULSE 72–105; RESP 16–23; TEMP 37.3; O2SAT 91–98; BMI 25.1
--- NOTE | 2020-03-19 07:22 | ECG_ITS ---
[facility] Test Date: 2020-03-19 Pat Name: Eric Medina Department: Room: Gender: Male Manager Party: : 1945 Requested By: Juanis Garcia Order Number: [id number] Girish MD: Elroy Monroy M.D. Measurements Intervals [place] Rate: 82 P: 71 VT: 175 QRS: -7 QRSD: 105 T: -32 QT: 388 QTc: 455 Interpretive Statements SINUS RHYTHM LOW QRS VOLTAGE [QRS DEFLECTION < 0.5/1.0 mV IN LIMB/CHEST LEADS] POSSIBLE RIGHT VENTRICULAR CONDUCTION DELAY [RSR (QR) IN V1/V2] Compared to ECG 03/05/2020 07:59:01 Low QRS voltage now present T-wave abnormality now present Intraventricular conduction delay no longer present Electronically Signed On 03-19-2020 17:02:59 HYPERBARIC TECHNICIAN by Elroy Monroy M.D. [id number]
--- NOTE | 2020-03-19 07:22 | XRR_ITS ---
PROCEDURE INFORMATION: Exam: XR Chest, 1 View Exam date and time: 03/19/2020 7:47 AM Age: 75 years old Clinical indication: Chest pain; Prior surgery; Surgery type: Pacemaker TECHNIQUE: Imaging protocol: XR of the chest Views: 1 view. COMPARISON: CR XR chest 1V portable [id number] 03/02/2020 5:31 AM FINDINGS: Lungs: Mild patchy airspace opacities (atelectasis and/or consolidation) in the right lung base, similar to prior study. Mild pulmonary vascular congestion, similar to prior study. Pleural spaces: No visible pneumothorax or pleural effusion. Heart/Mediastinum: Heart size within normal limits. Thoracic aorta is mildly tortuous, similar to prior study. Bones/joints: Left upper thoracic asked the with leads overlying the right atrium and right ventricle. XR/XR chest 1V portable [id number] IMPRESSION: 1. Mild patchy airspace opacities (atelectasis and/or consolidation) in the right lung base, similar to prior study. 2. Mild pulmonary vascular congestion, similar to prior study.
--- NOTE | 2020-03-19 07:26 | ED_ITS ---
HPI - Altered Mental Status General: Chief Complaint: Chest Pain Stated Complaint: AMS; CHEST PAIN Time Seen by Provider: 03/19/20 07:22 Source: patient, EMS and old records reviewed Mode of arrival: EMS Limitations: altered mental status and other (Dementia) History of Present Illness: HPI narrative: 75-year-old male [facility] with multiple complaints. Initially staff called EMS because the patient was complaining of chest pain. He denied chest pain to EMS. During my exam, he continually repeats the phrase I hurt , indicating pain in his mouth, tongue, chest and legs. Denies abdominal pain, nausea or vomiting. Denies back pain. States that he is thirsty, has not had much to drink over the past 2 days. Unable to get a full HPI due to patient's mental status and memory loss. On review of his records, it appears he was hospitalized here from 02/29/2020 to 03/07/2020, treated for GI bleed, bilateral PE, pneumonia, type II NSTEMI, and anaphylactic rash. complaint: altered mental status and confusion Onset (ago): hour(s) Review of Systems General: Reports: ROS unobtainable due to mental status Const: Denies: fever(s) or chills ENMT: Reports: throat pain, mouth pain and dry mouth Resp: Denies: dyspnea, productive cough, wheezing or stridor GI: Denies: abdominal pain, nausea or vomiting Skin/Breast: Reports: rash Neuro: Reports: confusion All/Imm: Reports: urticaria PFSH ED PFSH: Medical History Acute delirium Acute respiratory failure with hypoxia Improving.Currently saturating well On R.A Anaphylaxis Anemia of chronic disease Aneurysm of infrarenal abdominal aorta 3.7x4.1cm 02/29/20 Bilateral pneumonia CAD (coronary artery disease) CHF (congestive heart failure) CKD (chronic kidney disease) stage 3, GFR 30-59 ml/min COPD (chronic obstructive pulmonary disease) Dementia without behavioral disturbance DM type 2 (diabetes mellitus, type 2) GERD (gastroesophageal reflux disease) GI bleed History of 2019 novel coronavirus disease (COVID-19) (~01/29/20) Hyperlipidemia Hypertension NSTEMI (non-ST elevated myocardial infarction) Osteoarthritis Pulmonary embolism Recurrent falls Sinus tachycardia Vitamin C deficiency Vitamin D deficiency Surgical History AICD (automatic cardioverter/defibrillator) present 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 Family History Denies family history of Clotting disorder Social History Smoking and tobacco status: former smoker Lives independently: No Housing: Other Details: [facility] Physical Exam Const: COMMON NORMALS: no acute distress, average body habitus and alert EXAM LIMITATIONS: altered mental status GENERAL APPEARANCE: well kempt, anxious and frail appearing; not in distress, not lethargic and not ill appearing ORIENTATION/CONSCIOUSNESS: Yes awake, Yes oriented to person and Yes confused; not lethargic HENMT: COMMON NORMALS: normocephalic, atraumatic, hearing grossly normal bilaterally and Normal external nose present HEAD & SCALP: normal to inspection, normocephalic and atraumatic FACE & SINUS: normal facial exam and face symmetric NOSE: Normal external nose present and Normal nares present MOUTH: moist mucous membranes abnormal Details: parched TEETH & GINGIVA: Yes edentulous Eye: COMMON NORMALS: Equal, round and reactive pupils present, EOMs intact bilaterally, conjunctivae normal and no scleral icterus CONJUNCTIVA: Yes conjunctivae normal PUPIL: Yes Equal, round and reactive pupils present Neck/C-Spine: GENERAL: Yes normal visual inspection, Yes trachea midline, No anterior neck swelling and No lymphadenopathy Chest: COMMONS NORMALS: normal inspection of the chest, normal palpation of entire chest wall and normal inspection of the breasts Resp: COMMON NORMALS: normal respiratory effort, No retractions, No use of accessory muscles and clear to auscultation bilaterally EFFORT & INSPECTION: Yes able to speak in complete sentences, No tachypneic, No respiratory distress, No pursed lip breathing, No labored, No grunting, No stridor, No Actively coughing and No retractions AUSCULTATION: clear to auscultation bilaterally Cardio: COMMON NORMALS: S1 normal heart sound present and S2 normal heart sound present HEART SOUNDS: S1 normal heart sound present and S2 normal heart sound present GI: COMMON NORMALS: Soft to palpation INSPECTION: Yes normal to inspection, No Abdominal wall edema and No abdominal distension AUSCULTATION: Yes normoactive bowel sounds PALPATION: Yes Soft to palpation, No Tenderness to palpation present (GI), No Guarding due to palpation present (GI), No Rigid due to palpation, No No hepatosplenomegaly present and No Hepatosplenomegaly present Neuro: COMMON NORMALS: moves all extremities and no focal motor deficits SENSORIUM/ORIENTATION: Yes alert, Yes oriented to person and No lethargic SPEECH: speech normal GAIT: Yes Unable to assess gait Psych: APPEARANCE: Yes well kempt Skin: GENERAL SKIN EXAM: crusts and dry skin RASHES: rashes noted (Diffuse, erythematous, maculopapular) Course Vital Signs: Vital signs: Vital Signs Temperature 99.1 F 03/19/20 07:27 Pulse Rate 105 H 03/19/20 10:47 Respiratory Rate 18 03/19/20 10:47 Blood Pressure 117/63 03/19/20 10:47 Pulse Oximetry 95 03/19/20 10:47 MDM - Altered Mental Status MDM Narrative: Medical decision making narrative: 75-year-old with a history of dementia, CAD, and bilateral pulmonary embolisms presenting with intermittent complaints of chest pain, mouth pain/dry mouth and acute on chronic confusion. No acute ischemic changes on EKG. Lab work shows interval slight worsening of his renal function, and on physical exam he does appear dehydrated with very dry mucous membranes and decreased skin turgor. BNP has decreased to 1932 from 6655 on 03/04/2020. Troponin 44, which is similar to baseline. Overall, no findings to suggest any emergency condition requiring further work- up. He has a history of bilateral pulmonary embolisms, but is not a candidate for anticoagulation because of recurrent GI bleeds in the past. His CAD is managed medically. Chest x-ray does not show any significant changes from prior. Suspect he is slightly over diuresed, and will recommend that his Lasix dose be decreased to 40 mg once daily instead of twice daily. Differential Diagnosis: Differential diagnosis altered mental status: Likely altered mental status, delirium, dementia, hypoglycemia, hyponatremia and sepsis Medical Records: Attestation: I reviewed the patient's medical records. Lab Data: Attestation: I reviewed the patient's lab results. Labs: Lab Results 03/19/20 03/19/20 03/19/20 Range/Units 07:09 07:09 07:09 WBC 6.9 (4.0-10.0) 10^3/ uL RBC 3.57 L (4.1-5.3) 10^6/u L Hgb 10.7 L (11.7-16.6) g/dL Hct 33.9 L (42.0-52.0) % MCV 95.0 H (80-94) fL MCH 30.0 (28.0-34.0) pg MCHC 31.6 (30.0-36.0) g/dL RDW 14.2 (12.1-15.1) % Plt Count 147 (130-400) 10^3/c mm MPV 10.9 H (7.4-10.4) fL Neut % (Auto) 47.9 % Lymph % (Auto) 24.9 % [place] % (Auto) 12.2 % Eos % (Auto) 14.3 % Baso % (Auto) 0.3 % Neut # (Auto) 3.29 (1.8-7.7) 10^3/u L Lymph # (Auto) 1.7 (0.8-4.8) 10^3/u L [place] # (Auto) 0.8 (0.2-0.9) 10^3/u L Eos # (Auto) 1.0 H (0.0-0.8) 10^3/u L Baso # (Auto) 0.0 (0.0-0.1) 10^3/u L Nucleated RBC % (a uto) 0 % Nucleated RBCs # 0.0 /100WBC ESR (0-10) mm/hr Sodium 140 (136-145) mmol/L Potassium 4.3 (3.5-5.1) mmol/L Chloride 104 (98-107) mmol/L Carbon Dioxide 24 (22-29) mmol/L Anion Gap 16.3 (5-19) BUN 42 H (8-23) mg/dL Creatinine 3.1 H (0.7-1.2) mg/dL GFR Calculation Not Reportable Glucose 129 H (65-115) mg/dL Calculated Osmolal ity 302 H (285-295) mOsm/k g Calcium 8.8 (8.5-10.5) mg/dL Magnesium 2.1 (1.7-2.3) mg/dL Total Bilirubin 0.6 (0.15-1.2) mg/dL AST 13 (0-40) U/L ALT 13 (0-41) U/L Alkaline Phosphata se 89 (40-130) IU/L Troponin T Gen 5 n g/L 44 H (0-15) ng/L NT-Pro-B Natriuret Pep 1932 H (0-450) pg/mL Total Protein 5.3 L (6.6-8.7) g/dL Albumin 3.1 L (3.5-5.2) g/dL Globulin 2.2 (1.3-4.6) g/dL Urine Color (Yellow) Urine Appearance (CLEAR) Urine pH (5-7) Ur Specific Gravit y (1.005-1.030) Urine Protein (Negative) Urine Glucose (UA) (Normal) Urine Ketones (Negative) Urine Blood (Negative) Urine Nitrate (Negative) Urine Bilirubin (Negative) Urine Urobilinogen (Negative) mg/dL Ur Leukocyte Jeanette ase (Negative) Urine RBC (0-2) /hpf Urine WBC (0-5) /hpf Ur Squamous Epith Cells (0-5) /hpf Amorphous Sediment Urine Bacteria (NONE) /hpf Urine Mucus /hpf 03/19/20 03/19/20 Range/Units 07:09 10:39 WBC (4.0-10.0) 10^3/ uL RBC (4.1-5.3) 10^6/u L Hgb (11.7-16.6) g/dL Hct (42.0-52.0) % MCV (80-94) fL MCH (28.0-34.0) pg MCHC (30.0-36.0) g/dL RDW (12.1-15.1) % Plt Count (130-400) 10^3/c mm MPV (7.4-10.4) fL Neut % (Auto) % Lymph % (Auto) % [place] % (Auto) % Eos % (Auto) % Baso % (Auto) % Neut # (Auto) (1.8-7.7) 10^3/u L Lymph # (Auto) (0.8-4.8) 10^3/u L [place] # (Auto) (0.2-0.9) 10^3/u L Eos # (Auto) (0.0-0.8) 10^3/u L Baso # (Auto) (0.0-0.1) 10^3/u L Nucleated RBC % (a uto) % Nucleated RBCs # /100WBC ESR 26 H (0-10) mm/hr Sodium (136-145) mmol/L Potassium (3.5-5.1) mmol/L Chloride (98-107) mmol/L Carbon Dioxide (22-29) mmol/L Anion Gap (5-19) BUN (8-23) mg/dL Creatinine (0.7-1.2) mg/dL GFR Calculation Glucose (65-115) mg/dL Calculated Osmolal ity (285-295) mOsm/k g Calcium (8.5-10.5) mg/dL Magnesium (1.7-2.3) mg/dL Total Bilirubin (0.15-1.2) mg/dL AST (0-40) U/L ALT (0-41) U/L Alkaline Phosphata se (40-130) IU/L Troponin T Gen 5 n g/L (0-15) ng/L NT-Pro-B Natriuret Pep (0-450) pg/mL Total Protein (6.6-8.7) g/dL Albumin (3.5-5.2) g/dL Globulin (1.3-4.6) g/dL Urine Color Yellow (Yellow) Urine Appearance Clear (CLEAR) Urine pH 5 (5-7) Ur Specific Gravit y 1.015 (1.005-1.030) Urine Protein Neg (Negative) Urine Glucose (UA) Norm (Normal) Urine Ketones Negative (Negative) Urine Blood 2+ H (Negative) Urine Nitrate Negative (Negative) Urine Bilirubin Neg (Negative) Urine Urobilinogen Norm (Negative) mg/dL Ur Leukocyte Jeanette ase Negative (Negative) Urine RBC 5-10 H (0-2) /hpf Urine WBC None (0-5) /hpf Ur Squamous Epith Cells None (0-5) /hpf Amorphous Sediment Not Reportable Urine Bacteria Trace (NONE) /hpf Urine Mucus 1+ /hpf EKG Data^: EKG 1: Attestation: I personally reviewed and interpreted this EKG as follows: EKG interpretation date: 01/31/21 EKG interpretation time: 07:31 Prior EKG tracings: available for review Interpretation: Sinus rhythm with a rate of 82, VT 175, QRS 105, QTc 427, normal axis. No new ST segment elevation or depression. No acute changes when compared to previous EKG dated 02/29/2020 Discharge Plan Discharge Patient Disposition: Home Clinical Impression: Atypical chest pain, Dehydration, moderate Dementia Qualifiers: Dementia type: unspecified type Dementia behavioral disturbance: without behavioral disturbance Qualified Code(s): F03.90 - Unspecified dementia without behavioral disturbance Condition: Stable Prescriptions: New Lasix 40 mg tablet 40 mg PO DAILY Qty: 30 RF: 0 Discontinued furosemide [Lasix] 40 mg tablet 40 mg PO BID Qty: 60 RF: 0 No Action Vitamin C 1,000 mg Tablet 1,000 mg PO DAILY@08 RF: 0 Milk of Magnesia 400 mg/5 mL Suspension 30 ml PO DAILY PRN (Reason: Constipation) RF: 0 bisacodyl 10 mg Suppository 10 mg VT DAILY PRN (Reason: Constipation) RF: 0 Enema 19-7 gram/118 mL Enema 118 ml VT DAILY PRN (Reason: Constipation) RF: 0 docusate sodium 100 mg Capsule 100 mg PO DAILY PRN (Reason: Constipation) RF: 0 [place] 200-200-20 mg/5 mL Suspension 30 ml PO Q2H PRN (Reason: Heartburn) RF: 0 albuterol sulfate 90 mcg/actuation Hfa Aerosol Inhaler 1 inh INHALATION QID PRN (Reason: Shortness Of Breath) RF: 0 potassium chloride 20 mEq Tablet Extended Release 20 meq PO DAILY@08 RF: 0 Orajel 3X Mouth Sores 20-0.1-0.15 % Gel 1 ea MUCOUS MEMBRANE TID PRN (Reason: mouth sores) RF: 0 carvedilol 12.5 mg tablet 12.5 mg PO BID Qty: 60 RF: 0 Adult Aspirin Regimen 81 mg tablet,delayed release (DR/EC) 81 mg PO DAILY Qty: 30 RF: 0 ferrous sulfate 325 mg (65 mg iron) Tablet 325 mg PO TID@08,14,20 RF: 0 hydralazine 50 mg Tablet 50 mg PO TID@,, RF: 0 atorvastatin 40 mg Tablet 40 mg PO DAILY@1999 RF: 0 acetaminophen [Tylenol] 325 mg Tablet 650 mg PO QID PRN (Reason: Pain) RF: 0 loperamide 2 mg Capsule 2 mg PO TID PRN (Reason: Diarrhea) RF: 0 cyanocobalamin (vitamin B-12) [Vitamin B-12] 1,000 mcg Tablet 1,000 mcg PO DAILY@0800 RF: 0 glucosamine sulfate [Glucosamine] 500 mg Tablet 500 mg PO BID@,20 RF: 0 meclizine 25 mg Tablet 25 mg PO Q6H PRN (Reason: Dizziness) RF: 0 pantoprazole 40 mg Tablet,Delayed Release (Dr/Ec) 40 mg PO DAILY@0800 RF: 0 fluticasone propionate 50 mcg/actuation [place],Suspension 1 spray INTRANASAL BID@ RF: 0 glipizide 5 mg Tablet 5 mg PO BID@ RF: 0 artificial tears with lanolin Ointment 1 applic OPHTHALMIC (EYE) BID PRN (Reason: Dry Eyes) RF: 0 cholecalciferol (vitamin D3) [Vitamin D3] 125 mcg (5,000 unit) Tablet 125 mcg PO DAILY@0800 RF: 0 Trelegy Ellipta 100-62.5-25 mcg Blister With Device 1 inh INHALATION DAILY@0800 RF: 0 Discharge Orders: Discharge ED (Routine); Ordered 03/19/20 Ordered By: Juanis Garcia Discharge Diet: Advance as tolerated Discharge Activity: Resume usual activity Patient Instructions: Chest Pain (ED), Dehydration (ED) Activity Restrictions/Additional Instructions: Drink extra fluids. Decrease Lasix to just once a day in the morning. Follow- up with your PCP in the next 3 to 5 days. Return immediately to the ER if you develop difficulty breathing, fever, worsening chest pain, vomiting, or any other concerning changes. 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
[2020-03-19 07:51] LABS: Basophils % 0.3 %; Eosinophils % 14.3 %; Hematocrit 33.9 % (42.0-52.0); Hemoglobin 10.7 g/dL (11.7-16.6); Lymphocytes # 1.7 10^3/uL (0.8-4.8); Lymphocytes % 24.9 %; Mean Corpuscular HGB Conc 31.6 g/dL (30.0-36.0); Mean Platelet Volume 10.9 fL (7.4-10.4); Monocytes # 0.8 10^3/uL (0.2-0.9); Monocytes % 12.2 %; Neutrophils # 3.29 10^3/uL (1.8-7.7); Neutrophils % 47.9 %; Nucleated Red Blood Cells % 0 %; Platelet Count 147 10^3/cmm (130-400); Red Blood Count 3.57 10^6/uL (4.1-5.3); Red Cell Distribution Width 14.2 % (12.1-15.1); White Blood Count 6.9 10^3/uL (4.0-10.0)
[2020-03-19 08:09] LABS: Troponin T (5th) Once 44 ng/L (0-15)
[2020-03-19 08:16] LABS: Alanine Aminotransferase 13 U/L (0-41); Albumin Level 3.1 g/dL (3.5-5.2); Alkaline Phosphatase 89 IU/L (40-130); Anion Gap 16.3 (5-19); Aspartate Amino Transferase 13 U/L (0-40); Blood Urea Nitrogen 42 mg/dL (8-23); Calcium 8.8 mg/dL (8.5-10.5); Carbon Dioxide 24 mmol/L (22-29); Chloride 104 mmol/L (98-107); Globulin 2.2 g/dL (1.3-4.6); Glucose 129 mg/dL (65-115); Magnesium 2.1 mg/dL (1.7-2.3); NT Pro B Type Natriuretic Pept 1932 pg/mL (0-450); Osmolality Calculated 302 mOsm/kg (285-295); Potassium 4.3 mmol/L (3.5-5.1); Sodium 140 mmol/L (136-145); Total Bilirubin 0.6 mg/dL (0.15-1.2); Total Protein 5.3 g/dL (6.6-8.7)
[2020-03-19] MEDS: sodium chloride 0.9% 500 ML 999 ML IV (08:32)
[2020-03-19 09:22] LABS: Erythrocyte Sedimentation Rate 26 mm/hr (0-10)
[2020-03-19 11:14] LABS: Bilirubin Urine Neg (Negative); Blood Urine 2+ (Negative); Glucose Urine UA Norm (Normal); Ketones Urine Negative (Negative); Nitrate Urine Negative (Negative); Protein Urine Neg (Negative); Specific Gravity, Urine 1.015 (1.005-1.030); Urine Appearance Clear (CLEAR); Urine Color Yellow (Yellow); pH Urine 5 (5-7)
[2020-03-19 11:15] LABS: Leukocyte Esterase Urine Negative (Negative); Urobilinogen Urine Norm (Negative)
[2020-03-19 11:16] LABS: Add Urine Culture? No; Bacteria Urine TRACE /hpf; Mucus Urine 1+ /hpf
== END 2020-03-19 13:29 | disposition home or self-care (01) ==
PROVIDERS: Emergency Provider Family Medicine
DX: R07.89 Other chest pain (principal); E86.0 Dehydration; F03.90 Unspecified dementia, unspecified severity, without behavioral disturbance, psychotic disturbance, mood disturbance, and anxiety; Z79.82 Long term (current) use of aspirin; Z79.84 Long term (current) use of oral hypoglycemic drugs; I13.0 Hypertensive heart and chronic kidney disease with heart failure and stage 1 through stage 4 chronic kidney disease, or unspecified chronic kidney disease; E11.22 Type 2 diabetes mellitus with diabetic chronic kidney disease; N18.30 Chronic kidney disease, stage 3 unspecified; I50.9 Heart failure, unspecified; I25.10 Atherosclerotic heart disease of native coronary artery without angina pectoris; J44.9 Chronic obstructive pulmonary disease, unspecified; E78.5 Hyperlipidemia, unspecified; I25.2 Old myocardial infarction; Z87.891 Personal history of nicotine dependence
CPT/HCPCS: 12345; 51701; 71045; 80053; 81001; 83735; 83880; 84484; 85025; 85651; 93005; 99283; J7040